=== PATIENT | male | born 1945 | race Caucasian/White ===

== ENCOUNTER → 2016-07-16 | Outpatient (CLI) | payer OTHER ==
[~2016-07-16] MED LIST: AZAT50TA17 PO; CHOL20009 PO; CYAN10005 PO; GADAVIST IV PRN; GLIP10TA9 PO; LINA1TAB PO; LSN/10125 PO; METF-383 PO; MULT-513 PO; PARO1TAB29 PO; SYMIN INH
--- NOTE | 2016-07-16 13:34 | DIAGNOSTIC IMAGING REPORT ---
MRI ENTEROGRAPHY OF THE ABDOMEN AND PELVIS WITH AND WITHOUT CONTRAST CLINICAL HISTORY: Crohn's disease of the ileum with complication. Abnormal CT scan. COMPARISON STUDY: CT of the abdomen and pelvis June 20, 2012. TECHNIQUE: The patient ingested Volumen. Utilizing 1.5 Vanessa magnet and dedicated coil, multiplanar, multi echo imaging of the abdomen was performed pre and postcontrast ministration with dynamic enhancement. Injection of 8.5 cc of Gadavist IV was uneventful. FINDINGS: Note is again made of a mesenteric abnormality that measures 4.7 x 1.3 cm. This has decreased in size since exam of June 20, 2012 and is therefore benign. The spleen, adrenal glands, kidneys and pancreas are unremarkable. Visualized portions of the liver also unremarkable. Small mesenteric lymph nodes are stable. There is no ascites. There is no abscess. There is moderate multifocal wall thickening within the distal ileum. This is improved since exam of June 20, 2012. There is associated hyperemia. There is mild upstream dilatation of the small bowel which measures 3.7 cm in caliber. Linear enhancing foci with adjacent to small bowel suggest an ileoileal fistula. This exam is compromised by motion artifact. IMPRESSION: 1. Moderate multifocal wall thickening with associated hyperemia of the distal ileum consistent with inflammatory bowel disease. The findings suggest active inflammatory bowel disease although appears improved since exam of June 20, 2012. Minimal dilatation of a small bowel loop without convincing evidence for a bowel obstruction. No abscess. Small ileoileal fistula. 2. Interval decrease in size of the mesenteric abnormality since CT of June 20, 2012. Therefore, this is benign. Electronically signed by: Dony Rivero M.D. 07/16/2016 1:32 PM Dictated Date/Time: 07/16/2016 12:39 PM
== END | disposition home or self-care (01) ==
LOC: C.MRI 09:42
PROVIDERS: ATTEND Registered Nurse
DX: K50.019 Crohn's disease of small intestine with unspecified complications (principal); K59.8 Other specified functional intestinal disorders

== ENCOUNTER → 2016-07-19 | Day surgery (SDC) | payer OTHER ==
[~2016-07-19] VITALS: Ht 165.1 cm; Wt 83.6 kg
[~2016-07-19] MED LIST changes: -GADAVIST IV PRN; +LIDOCAINE HCL 2% 2 ML VIAL (20MG/ML) ONE; +MIDAZOLAM HCL 1 MG/ML 2ML VIAL ONE; +ONDANSETRON INJ 2 MG/ML 2 ML VIAL ONE; +PROPOFOL IV EMULSION 10 MG/ML 20 ML VIAL IV ONE; +SODIUM CHLORIDE 0.9% 500ML 500 ML IV ONE
[2016-07-19 12:07] VITALS: Ht 165.1 cm; Wt 83.6 kg
[2016-07-19 12:16] VITALS: TEMP 36.7
--- NOTE | 2016-07-19 12:23 | Endo History and Physical ---
History & Physical Date of Service: July 19, 2016. Chief Complaint: Abn CT scan Hx of Crohns Referring Physician: Dr Chavarria History of Present Illness 70 yo CM who presents for Colonoscopy secondary to Crohn's Disease and abnormal CT scan of the abdomen. Past Surgical History Hx Cardiac Surgery: No Hx Internal Defibrillator: No Hx Pacemaker: No Hx Abdominal Surgery: Yes (APPY, HERNIA REPAIR) Hx of Implantable Prosthesis: No Hx Post-Op Nausea and Vomiting: No Hx Cancer Surgery: No Hx Thoracic Surgery: No Hx Orthopedic: No Hx Urinary Tract Surgery: No Family History Polyp Social History Smoking Status: Former Smoker Hx Substance Use: No Hx Alcohol Use: No Allergies Coded Allergies: BEE STING (Unverified Allergy, Intermediate, HIVES, 07/14/16) NO KNOWN DRUG ALLERGIES (Verified Allergy, Unknown, ., 07/14/16) Current Medications Reported Home Medications Medications Dose Route/Sig Max Daily Dose Days Date Category Vitamin D (Cholecalciferol) 2,000 Unit Tab 1 Tab PO QPM 07/14/16 Reported Symbicort 160-4.5 Mcg/Act (Budesonide/Formoterol Fumarate) 60 Puffs/Inhaler Aero 2 Puffs INH QAM 07/14/16 Reported Tradjenta (Linagliptin) 5 Mg Tab 1 Tab PO QPM 07/14/16 Reported Paxil (Paroxetine HCl) 40 Mg Tab 0.5 Tab PO QAM 07/14/16 Reported Lisinopril/Hctz 12/16.5 Mg (HCTZ/Lisinopril) 1 Ea Tab 1 Tab PO QAM 07/14/16 Reported Vitamin B-12 (Cyanocobalamin) 1,000 Mcg Tab 1,000 Mcg PO QPM 09/26/15 Reported Mvi With Minerals (Multivitamins/Minerals) Tab 1 Tab PO QAM 09/26/15 Reported Glucotrol (Glipizide) 10 Mg Tab 10 Mg PO BID 09/26/15 Reported Glucophage (Metformin Hcl) 850 Mg Tab 850 Mg PO TID 11/10/14 Reported Imuran (Azathioprine) 50 Mg Tab 1.5 Tab PO QPM 12/08/09 Reported Vital Signs Weight (Kilograms): 83.64 Height (Feet): 5 Height (Inches): 5 Date Time Temp Pulse Resp B/P Pulse Ox O2 Delivery O2 Flow Rate FiO2 5/15/17 12:16 36.7 87 16 154/81 98 Room Air Physical Exam General Appearance: WD/WN, no apparent distress Respiratory/Chest: Auscultation: breath sounds normal Cardiovascular: Heart Auscultation: RRR Abdomen: Bowel Sounds: normal Inspection & Palpation: soft, non-distended, no tenderness, guarding & rebound Assessment and Plan Assessment: 70 yo CM who presents for Colonoscopy secondary to Crohn's Disease and abnormal CT scan of the abdomen. Plan: Proceed with colonoscopy.
--- NOTE | 2016-07-19 13:33 | GI REPORT ---
Procedure Date: 07/19/2016 12:44 PM Procedure: Colonoscopy Indications: Disease activity assessment of Crohn's disease of the small bowel, Abnormal MRI of the GI tract Medicines: Monitored Anesthesia Care Complications: Small amount of emesis, tachycardia, but normal O2 saturations. Estimated Blood Loss: Estimated blood loss: none. Procedure: Pre-Anesthesia Assessment: - Prior to the procedure, a History and Physical was performed, and patient medications and allergies were reviewed. The patient's tolerance of previous anesthesia was also reviewed. The risks and benefits of the procedure and the sedation options and risks were discussed with the patient. All questions were answered, and informed consent was obtained. Prior Anticoagulants: The patient has taken no previous anticoagulant or antiplatelet agents. ASA Grade Assessment: III - A patient with severe systemic disease. After reviewing the risks and benefits, the patient was deemed in satisfactory condition to undergo the procedure. After I obtained informed consent, the scope was passed under direct vision. Throughout the procedure, the patient's blood pressure, pulse, and oxygen saturations were monitored continuously. The On-site loaner was introduced through the anus with the intention of advancing to the ileum. The scope was advanced to the ascending colon before the procedure was aborted. Medications were given. The colonoscopy was performed without difficulty. The patient tolerated the procedure poorly due to a small amount of emesis, tachycardia, but normal O2 saturation. The quality of the bowel preparation was good. No anatomical landmarks were photographed. Findings: The colon (entire examined portion) appeared normal. Impression: - The entire examined colon is normal. - No specimens collected. Recommendation: - Resume previous diet. - Continue present medications. - Refer to a colo-rectal surgeon at appointment to be scheduled. Berto Stover DO 07/19/2016 1:33:26 PM This report has been signed electronically. Note Initiated On: 07/19/2016 12:44 PM I attest to the content of the Intraoperative Record and orders documented therein, exceptions below
--- NOTE | 2016-07-19 13:55 | Anesthesiology Progress Note ---
Anesthesia Post Op Note Date & Time July 19, 2016 at 13:52 Vital Signs Pain Intensity: 0 Vital Signs Past 12 Hours Date Time Temp Pulse Resp B/P Pulse Ox O2 Delivery O2 Flow Rate FiO2 07/19/16 13:40 92 18 152/99 95 Room Air 07/19/16 13:25 93 18 132/68 95 Room Air 07/19/16 12:16 36.7 87 16 154/81 98 Room Air Notes Mental Status: alert / awake / arousable, participated in evaluation Pt Amnestic to Procedure: Yes Nausea / Vomiting: adequately controlled Pain: adequately controlled Airway Patency, RR, SpO2: stable & adequate BP & HR: stable & adequate Hydration State: stable & adequate Anesthetic Complications: no major complications apparent Pt started retching during the procedure and started to vomit. He was quickly suctioned. His sats are at baseline, his lungs are clear, and he feels fine. I have no reason to suspect aspiration.
[2016-07-19 13:56] VITALS: BP 140/88; PULSE 89; O2SAT 95
--- NOTE | 2016-07-19 14:16 | Discharge Instructions ---
Endoscopy Patient Instructions Date / Procedure(s) Performed July 19, 2016. Colonoscopy Allergy Information Coded Allergies: BEE STING (Unverified Allergy, Intermediate, HIVES, 07/14/16) NO KNOWN DRUG ALLERGIES (Verified Allergy, Unknown, ., 07/14/16) Discharge Date / Findings July 19, 2016. Incomplete colonoscopy Medication Instructions OK to resume all medications today as prescribed. Reported Home Medications Medications Dose Route/Sig Max Daily Dose Days Date Category Vitamin D (Cholecalciferol) 2,000 Unit Tab 1 Tab PO QPM 07/14/16 Reported Symbicort 160-4.5 Mcg/Act (Budesonide/Formoterol Fumarate) 60 Puffs/Inhaler Aero 2 Puffs INH QAM 07/14/16 Reported Tradjenta (Linagliptin) 5 Mg Tab 1 Tab PO QPM 07/14/16 Reported Paxil (Paroxetine HCl) 40 Mg Tab 0.5 Tab PO QAM 07/14/16 Reported Lisinopril/Hctz 10/12.5 Mg (HCTZ/Lisinopril) 1 Ea Tab 1 Tab PO QAM 07/14/16 Reported Vitamin B-12 (Cyanocobalamin) 1,000 Mcg Tab 1,000 Mcg PO QPM 09/26/15 Reported Mvi With Minerals (Multivitamins/Minerals) Tab 1 Tab PO QAM 09/26/15 Reported Glucotrol (Glipizide) 10 Mg Tab 10 Mg PO BID 09/26/15 Reported Glucophage (Metformin Hcl) 850 Mg Tab 850 Mg PO TID 11/10/14 Reported Imuran (Azathioprine) 50 Mg Tab 1.5 Tab PO QPM 12/08/09 Reported Provider Instructions Activity Restrictions - No exercising or heavy lifting for 24 hours. - Do not drink alcohol the day of the procedure. - Do not drive a car or operate machinery until the day after the procedure. - Do not make any important decisions or sign important papers in 24 hours after the procedure. Following Day: - Return to full activity which may include returning to work/school. Diet Start your diet with liquids and light foods (jello, soup, juice, toast). Then eat your usual diet if not nauseated. Treatment For Common After Affects For mild abdominal pain, bloating, or excessive gas: - Rest - Eat lightly - Lie on right side Follow-Up Information Follow-up with Dr Chavarria as scheduled Anesthesia Information What You Should Know You have had a procedure that required some medicine to reduce anxiety and discomfort. This treatment is called moderate sedation. After receiving the treatment, you may be sleepy, but you will be able to breathe on your own. The effects of the treatment may last for several hours. Follow these instructions along with Activity/Diet recommendations noted above: * Do NOT do anything where dizziness or clumsiness would be dangerous. * Rest quietly at home today, then you can be up and about tomorrow. * Have a responsible person stay with you the rest of today. * You may have had an I.V. today. If so, you may take the dressing off later today. Recommendations Call your doctor if: * Trouble breathing * Continuous vomiting for more than 24 hours * Temperature above 101 degrees * Severe abdominal pain or bloating * Pain not relieved by pain medicine ordered * There is increased drainage or redness from any incision * A large amount of rectal bleeding greater than 2-3 tablespoons. (If you had a polyp/s removed or have hemorrhoids, a small amount of blood - from the rectum is to be expected.) * You have any unanswered questions or concerns. IN THE EVENT OF A SERIOUS EMERGENCY, GO TO THE NEAREST EMERGENCY ROOM Your discharge instructions were prepared by provider Berto Stover. Patient Instructions Signature Page Baldo Malik Patient (or Guardian) Signature/Date: I have read and understand the instructions given to me by my caregivers. Caregiver/RN/Doctor Signature/Date: The above-named patient and/or guardian has received patient instructions on this date. + Original Patient Signature Page (only) stays with chart. Please make copy for patient.
== END | disposition home or self-care (01) ==
LOC: C.GI 11:54
PROVIDERS: ATTEND Internal Medicine
DX: K50.019 Crohn's disease of small intestine with unspecified complications (principal); E11.9 Type 2 diabetes mellitus without complications; R93.7 Abnormal findings on diagnostic imaging of other parts of musculoskeletal system; Z98.890 Other specified postprocedural states; Z87.891 Personal history of nicotine dependence; Z90.89 Acquired absence of other organs; Z68.30 Body mass index [BMI] 30.0-30.9, adult; Z83.71 Family history of colonic polyps

== ENCOUNTER 2017-04-11 08:47 | Inpatient (IN) | payer OTHER ==
[2017-04-11] VITALS (9 sets, daily range): BP systolic 157–171; BP diastolic 79–93; PULSE 102–115; TEMP 37–37.6; O2SAT 92–95; BMI 30.6
[~2017-04-11] VITALS: Ht 165.1 cm; Wt 80.0 kg
[~2017-04-11 08:47] MED LIST changes: -LIDOCAINE HCL 2% 2 ML VIAL (20MG/ML) ONE; -MIDAZOLAM HCL 1 MG/ML 2ML VIAL ONE; -ONDANSETRON INJ 2 MG/ML 2 ML VIAL ONE; -PROPOFOL IV EMULSION 10 MG/ML 20 ML VIAL IV ONE; -SODIUM CHLORIDE 0.9% 500ML 500 ML IV ONE
[2017-04-11] MEDS ORDERED: GUAISYP4 PO (09:49)
[2017-04-11] MEDS ORDERED: ACET-1311 PO (09:49)
--- NOTE | 2017-04-11 09:58 | DIAGNOSTIC IMAGING REPORT ---
CHEST ONE VIEW PORTABLE HISTORY: 71 years-old Male shortness of breath acute shortness of breath COMPARISON: Acute abdominal series radiographs 11/10/2014 TECHNIQUE: Portable AP view of the chest FINDINGS: Cardiac silhouette is within normal limits. Lungs are hypoinflated with mild right hemidiaphragmatic elevation and bronchovascular crowding. There are patchy left greater than right bibasilar reticulonodular and alveolar opacities. No pneumothorax or large pleural effusion. Bones of the chest appear grossly intact. IMPRESSION: 1. Patchy left greater than right bibasilar reticulonodular and alveolar opacities are suspicious for pneumonia or aspiration pneumonitis. 2. Mild hypoinflation. The above report was generated using voice recognition software. It may contain grammatical, syntax or spelling errors. Electronically signed by: Liang Sanchez M.D. 04/11/2017 9:57 AM Dictated Date/Time: 04/11/2017 9:50 AM
[2017-04-11 10:19] LABS: BASO % 0.2 %; BASO ABS # 0.02 K/uL (0-0.2); EOS % 0.1 %; EOS ABS # 0.01 K/uL (0-0.5); HEMATOCRIT 36.7 % (42-52); HEMOGLOBIN 12.8 g/dL (14.0-18.0); IG# 0.03 K/uL (0.00-0.02); LYMPH % 11.5 %; LYMPH ABS # 0.95 K/uL (1.2-3.4); MEAN CELL VOLUME 83.8 fL (80-100); MEAN CORPUSCULAR HEMOGLOBIN 29.2 pg (25-34); MEAN CORPUSCULAR HGB CONC 34.9 g/dl (32-36); MEAN PLATELET VOLUME 9.6 fL (7.4-10.4); MONO % 10.3 %; MONO ABS # 0.85 K/uL (0.11-0.59); NEUT % 77.5 %; NEUT ABS # 6.42 K/uL (1.4-6.5); PLATELET COUNT 311 K/uL (130-400); RED CELL DISTRIBUTION WIDTH CV 13.4 % (11.5-14.5); RED CELL DISTRIBUTION WIDTH SD 40.6 fL (36.4-46.3); WHITE BLOOD COUNT 8.28 K/uL (4.8-10.8)
[2017-04-11 10:49] LABS: ALBUMIN 2.7 gm/dl (3.4-5.0); CALCIUM 9.7 mg/dl (8.5-10.1); CREATININE 1.21 mg/dl (0.60-1.40); POTASSIUM 2.9 mmol/L (3.5-5.1)
[2017-04-11 11:06] LABS: INFLUENZA A PCR Neg for Influ A (NEG); INFLUENZA B PCR Neg for Influ B (NEG)
[2017-04-11] MEDS ORDERED: POTASSIUM CHLORIDE 10 MEQ / 100ML WTR IV STA (11:17)
[2017-04-11] MEDS ORDERED: PIPERACILLIN/TAZOBACTAM 4.5 GM/100ML D5W IV STA (11:17)
--- NOTE | 2017-04-11 11:17 | EMERGENCY ROOM VISIT NOTE ---
History Report prepared by Peter: Kg Amezquita Under the Supervision of: Dr. Chelsey Gan D.O. First contact with patient: 11:02 Chief Complaint: SHORTNESS OF BREATH Stated Complaint: LABORED BREATHING, RESPIRATORY SYMPTOMS Nursing Triage Summary: having shortness of breath for the past month or so. shortness of breath has increased. [facility] was supposed to call in antibiotic on tuesday and never did. History of Present Illness The patient is a 71 year old male who presents to the Emergency Room with complaints of worsening respiratory symptoms that began 1 month ago. He has a past medical history of COPD, diabetes, asthma. Over this time, the patient's chest has felt increasingly congested causing him to become very short of breath. He has been having some left sided rib pain as well associated with his coughing. He denies any fevers, chills, nausea, vomiting, abdominal pain, leg cramping, leg swelling, or any other abnormal symptoms. [facility], but they never called in his prescription. He has an inhaler that he could use, but states that he has not been using it because he thought it would interact with his Robitussin and Tylenol. He does not wear oxygen at home. Source of History: patient Onset: 1 month ago Position: other (Respiratory System) Symptom Intensity: moderate Quality: other (Shortness of breath) Timing: worsening Associated Symptoms: + cough, + chest pain (left ribs), No fevers, No chills , No nausea, No vomiting, No abdominal pain Note: He denies any leg swelling or cramping. Review of Systems See HPI for pertinent positives & negatives. A total of 10 systems reviewed and were otherwise negative. Past Medical & Surgical Medical Problems: (1) Acute respiratory failure with hypoxia (2) Appendectomy (3) Cholecystectomy (4) Crohn's disease (5) Diabetes mellitus (6) Hypertension Family History Omitted secondary to the patient's age. Social History Smoking Status: Never Smoker Smokeless Tobacco Use: No Marital Status: Housing Status: lives with family Occupation Status: retired Current/Historical Medications Scheduled Azathioprine (Imuran), 1.5 TAB PO QPM Budesonide/Formoterol Fumarate (Symbicort 160-4.5 Mcg/Act), 2 PUFFS INH QAM Cholecalciferol (Vitamin D), 1 TAB PO QPM Cyanocobalamin (Vitamin B-12), 1,000 MCG PO QPM Glipizide (Glucotrol), 10 MG PO BID Hctz/Lisinopril (Lisinopril/Hctz 10/12.5 Mg), 1 TAB PO QAM Linagliptin (Tradjenta), 1 TAB PO QPM Metformin Hcl (Glucophage), 850 MG PO TID Multivitamins/Minerals (Mvi With Minerals), 1 TAB PO QAM Paroxetine (Paxil), 0.5 TAB PO QAM Scheduled PRN Guaifenesin/Codeine (Robitussin-Ac Syrup), 10 ML PO Q4H PRN for Cough Miscellaneous Medications Acetaminophen (Tylenol), 325 MG PO Allergies Coded Allergies: BEE STING (Unverified Allergy, Intermediate, HIVES, 04/11/17) NO KNOWN DRUG ALLERGIES (Verified Allergy, Unknown, ., 04/11/17) Physical Exam Vital Signs Date Time Temp Pulse Resp B/P (MAP) Pulse Ox O2 Delivery O2 Flow Rate FiO2 04/11/17 11:47 93 Nasal Cannula 2.0 04/11/17 11:35 112 22 170/93 93 Nasal Cannula 2.0 04/11/17 10:44 99 22 159/91 94 Nasal Cannula 2.0 04/11/17 09:34 117 20 147/94 94 Nasal Cannula 2.0 04/11/17 09:32 89 Room Air 04/11/17 09:32 94 Nasal Cannula 2.0 04/11/17 09:26 120 04/11/17 09:14 91 Room Air 04/11/17 08:51 37.2 123 22 186/94 88 Room Air Physical Exam General: Patient appears to be in slight respiratory distress with a wet cough. HEENT: Head - normocephalic and atraumatic Pupils are equal, round, and reactive to light. Extraocular eye muscles are intact, and sclera are anicteric. Nose - moist nasal mucosa without discharge. Mouth - extremely dry buccal mucosa. Oropharynx is nonerythematous and there is no tonsillar exudate or edema noted. Neck: Supple; no JVD, nuchal rigidity, cervical lymphadenopathy. Heart: Regular rate and rhythm. There is a normal S1 and S2 with no murmurs, clicks, or gallops appreciated. Lungs: Diffuse rhonchi to all rollins. Abdomen: Soft, completely nontender, nondistended, with good bowel sounds. There are no palpable pulsatile masses or hepatosplenomegaly. There is no guarding, rigidity, or rebound noted. Extremities: No evidence of cyanosis, clubbing, or edema. There are easily palpable peripheral pulses. Skin: warm and dry with good turgor and no rashes. Medical Decision & Procedures ER Provider Diagnostic Interpretation: Radiology results as stated below per my review and the radiologist's interpretation: CHEST ONE VIEW PORTABLE HISTORY: 71 years-old Male shortness of breath acute shortness of breath COMPARISON: Acute abdominal series radiographs 11/10/2014 TECHNIQUE: Portable AP view of the chest FINDINGS: Cardiac silhouette is within normal limits. Lungs are hypoinflated with mild right hemidiaphragmatic elevation and bronchovascular crowding. There are patchy left greater than right bibasilar reticulonodular and alveolar opacities. No pneumothorax or large pleural effusion. Bones of the chest appear grossly intact. IMPRESSION: 1. Patchy left greater than right bibasilar reticulonodular and alveolar opacities are suspicious for pneumonia or aspiration pneumonitis. 2. Mild hypoinflation. The above report was generated using voice recognition software. It may contain grammatical, syntax or spelling errors. Electronically signed by: Liang Sanchez M.D. 04/11/2017 9:57 AM Dictated Date/Time: 04/11/2017 9:50 AM Laboratory Results 04/11/17 09:15 Red Blood Count 4.38, Mean Corpuscular Volume 83.8, Mean Corpuscular Hemoglobin 29.2, Mean Corpuscular Hemoglobin Concent 34.9, Mean Platelet Volume 9.6, Neutrophils (%) (Auto) 77.5, Lymphocytes (%) (Auto) 11.5, Monocytes (%) (Auto) 10.3, Eosinophils (%) (Auto) 0.1, Basophils (%) (Auto) 0.2, Neutrophils # (Auto ) 6.42, Lymphocytes # (Auto) 0.95, Monocytes # (Auto) 0.85, Eosinophils # (Auto ) 0.01, Basophils # (Auto) 0.02 04/11/17 09:15 Test 04/11/17 09:15 04/11/17 09:55 04/11/17 11:43 White Blood Count 8.28 K/uL (4.8-10.8) Red Blood Count 4.38 M/uL (4.7-6.1) Hemoglobin 12.8 g/dL (14.0-18.0) Hematocrit 36.7 % (42-52) Mean Corpuscular Volume 83.8 fL (80-100) Mean Corpuscular Hemoglobin 29.2 pg (25-34) Mean Corpuscular Hemoglobin Concent 34.9 g/dl (32-36) Platelet Count 311 K/uL (130-400) Mean Platelet Volume 9.6 fL (7.4-10.4) Neutrophils (%) (Auto) 77.5 % Lymphocytes (%) (Auto) 11.5 % Monocytes (%) (Auto) 10.3 % Eosinophils (%) (Auto) 0.1 % Basophils (%) (Auto) 0.2 % Neutrophils # (Auto) 6.42 K/uL (1.4-6.5) Lymphocytes # (Auto) 0.95 K/uL (1.2-3.4) Monocytes # (Auto) 0.85 K/uL (0.11-0.59) Eosinophils # (Auto) 0.01 K/uL (0-0.5) Basophils # (Auto) 0.02 K/uL (0-0.2) RDW Standard Deviation 40.6 fL (36.4-46.3) RDW Coefficient of Variation 13.4 % (11.5-14.5) Immature Granulocyte % (Auto) 0.4 % Immature Granulocyte # (Auto) 0.03 K/uL (0.00-0.02) Prothrombin Time 9.7 SECONDS (9.0-12.0) Prothromb Time International Ratio 0.9 (0.9-1.1) Activated Partial Thromboplast Time 32.4 SECONDS (21.0-31.0) Partial Thromboplastin Ratio 1.2 Anion Gap 11.0 mmol/L (3-11) Est Creatinine Clear Calc Drug Dose 55.6 ml/min Estimated GFR () 69.4 Estimated GFR (Non- 59.9 BUN/Creatinine Ratio 10.8 (10-20) Calcium Level 9.7 mg/dl (8.5-10.1) Total Bilirubin 0.5 mg/dl (0.2-1) Aspartate Amino Transf (AST/SGOT) 19 U/L (15-37) Alanine Aminotransferase (ALT/SGPT) 25 U/L (12-78) Alkaline Phosphatase 155 U/L (45-117) Troponin I < 0.015 ng/ml (0-0.045) Total Protein 8.0 gm/dl (6.4-8.2) Albumin 2.7 gm/dl (3.4-5.0) Globulin 5.3 gm/dl (2.5-4.0) Albumin/Globulin Ratio 0.5 (0.9-2) Beta-Hydroxybutyric Acid 2.70 mg/dL (0.2-2.81) Hepatitis C Antibody Screen NEG (NEG) Influenza Type A (RT-PCR) Neg for Influ A (NEG) Influenza Type B (RT-PCR) Neg for Influ B (NEG) Bedside Lactic Acid Venous 2.76 mmol/L (0.90-1.70) Laboratory results per my review. Medications Administered Medications (Trade) Dose Ordered Sig/Edward Route Start Time Stop Time Status Last Admin Dose Admin Potassium Chloride (Kcl 10 Meq / Wtr) 10 meq NOW STAT IV 04/11/17 11:17 04/11/17 11:18 DC 04/11/17 11:43 10 MEQ Piperacillin Sod/ Tazobactam Sod (Zosyn Iv) 4.5 gm NOW STAT IV 04/11/17 11:17 04/11/17 11:18 DC 04/11/17 11:34 4.5 GM Procedure Zosyn Iv 4.5 gm IV Potassium Chloride 10 meq IV ECG Indication: SOB/dyspnea Rate (beats per minute): 116 Rhythm: sinus tachycardia Findings: no acute ischemic change, no ectopy Comparison ECG Date: 10 Nov 2014 Change: no significant change ED Course 1102: Past medical records reviewed. The patient was evaluated in room B10. A complete history and physical exam was performed. A septic protocol was performed. An IV lock was initiated and labs are drawn as above. A twelve- lead EKG was obtained as described above. The patient went for chest x-ray which showed evidence of pneumonia. Patient's ECG interpreted by me. 1117: Ordered Zosyn Iv 4.5 gm IV, Potassium Chloride 10 meq IV. 1128: Upon reevaluation, I discussed findings and results with the patient. He verbalized agreement of the treatment plan. I spoke with Dr. Ryan of the [facility]. The patient will be evaluated for further management and care. Medical Decision The patient is a 71 year old male who presents to the ED with respiratory symptoms. Differential diagnosis includes COPD exacerbation, influenza, pneumonia, bronchitis, and CHF. Laboratory Results: No leukocytosis, hemoglobin 12.8, lactic acid 2.7, glucose 417, normal BHA, potassium 2.9, normal renal function, normal LFTs, negative flu. This is a 71-year-old male patient with history of COPD who has had worsening cough and shortness of breath over the past couple of days. He was at the [facility] last week and they were supposed to call in antibiotics for him but that never occurred. His symptoms have worsened. Chest x-ray shows evidence of bilateral basilar pneumonia. The patient does have an elevated lactic acid. He was treated with IV Zosyn. He was found to have significant hyperglycemia and hypokalemia. Without supplemental oxygen, he was hypoxic. I discussed the case with the hospitalist and they will evaluate for further management. Medication Reconcilliation Current Medication List: was personally reviewed by me Blood Pressure Screening Patient's blood pressure: Elevated blood pressure Referred to the hospitalist Consults Time Called: 1120 Consulting Physician: Dr. Ryan - [facility] [place] Returned Call: 1128 Discussed the patient's case. The patient will be evaluated for further management. Impression Primary Impression: Bilateral pneumonia Additional Impressions: Hypoxia Hypokalemia Hyperglycemia Scribe Attestation The scribe's documentation has been prepared under my direction and personally reviewed by me in its entirety. I confirm that the note above accurately reflects all work, treatment, procedures, and medical decision making performed by me. Departure Information Dispostion Being Evaluated By Hospitalist Referrals Ritesh Chavarria M.D. (PCP) Patient Instructions My [facility] Problem Qualifiers Primary Impression: Bilateral pneumonia Pneumonia type: due to unspecified organism Lung location: lower lobe of lung Qualified Codes: J18.9 - Pneumonia, unspecified organism
[2017-04-11] MEDS ORDERED: ALBUT/IPRATROP 3MG/0.5MG NEB 3 ML VIAL INH PRN (12:15)
[2017-04-11] MEDS ORDERED: MAGNESIUM HYDROXIDE SUSP 30 ML UDC PO PRN (12:30)
[2017-04-11] MEDS ORDERED: PIPERACILL/TAZOBAC IV 4.5 GM in DEXTROSE 5% 100ML 100 ML IV SCH (12:30)
[2017-04-11] MEDS ORDERED: ONDANSETRON INJ 2 MG/ML 2 ML VIAL IV PRN (12:30)
[2017-04-11] MEDS ORDERED: ACETAMINOPHEN 325 MG TAB PO PRN (12:30)
[2017-04-11] MEDS ORDERED: ALUMINUM/MAGNESIUM/SIMETH (MAALOX MAX) 30 ML UDC PO PRN (12:30)
[2017-04-11] MEDS ORDERED: PIPERACILL/TAZOBAC CONSULT ACTIVE PRN (12:30)
--- NOTE | 2017-04-11 12:46 | History and Physical ---
History & Physical Date & Time of Service: Apr 11, 2017 at 12:39 Chief Complaint: Labored Breathing, Respiratory Symptoms Primary Care Physician: Ritesh Chavarria M.D. History of Present Illness 71-year-old male typically sees the [facility], presented to them 1 week ago with fevers chills and a productive cough. Reportedly his medicines were to be mailed to am this was to be an antibiotic and he never received that he became progressively more short of breath and weak even to the point review was dyspneic on exertion. He presented to her ER was found to be hypoxemic and a chest x-ray showed bilateral reticulonodular changes consistent with possible bilateral pneumonia. The patient had blood cultures obtained and was started on Zosyn in the ER and recommended for admission. This patient also takes Imuran for Crohn's disease which raises the point of either an atypical infection or possibly even Imuran associated pneumonitis. There is discussion on the x-ray report of possible aspiration although clinically the patient denies any signs or symptoms of aspiration He is uncontrolled diabetes on presentation because he did not take his morning medications His Crohn's disease as mentioned has been stable but he typically has difficulty digesting food with increased abdominal noises and bloating he however has been having good bowel movements without any blood Past Medical/Surgical History Medical Problems: (1) Appendectomy Status: Resolved (2) Cholecystectomy Status: Resolved (3) Crohn's disease Status: Chronic (4) Diabetes mellitus Status: Chronic Family History Family history is positive for irritable bowel disease diabetes and heart disease including a brother with a CABG Social History Smoking Status: Former Smoker (quit in 1997) Smokeless Tobacco Use: No Marital Status: Occupational Status: retired Immunizations History of Influenza Vaccine: Yes Influenza Vaccine Date: Dec 21, 2011 History of Tetanus Vaccine?: Yes Tetanus Immunization Date: Dec 21, 2011 History of Pneumococcal: Yes Pneumococcal Date: Dec 21, 2011 History of Hepatitis B Vaccine: Unknown Multi-Drug Resistant Organisms History of MDRO: No Allergies Coded Allergies: BEE STING (Unverified Allergy, Intermediate, HIVES, 04/11/17) NO KNOWN DRUG ALLERGIES (Verified Allergy, Unknown, ., 04/11/17) Home Medications Scheduled Azathioprine (Imuran), 1.5 TAB PO QPM Budesonide/Formoterol Fumarate (Symbicort 160-4.5 Mcg/Act), 2 PUFFS INH QAM Cholecalciferol (Vitamin D), 1 TAB PO QPM Cyanocobalamin (Vitamin B-12), 1,000 MCG PO QPM Glipizide (Glucotrol), 10 MG PO BID Hctz/Lisinopril (Lisinopril/Hctz 10/12.5 Mg), 1 TAB PO QAM Linagliptin (Tradjenta), 1 TAB PO QPM Metformin Hcl (Glucophage), 850 MG PO TID Multivitamins/Minerals (Mvi With Minerals), 1 TAB PO QAM Paroxetine (Paxil), 0.5 TAB PO QAM Scheduled PRN Guaifenesin/Codeine (Robitussin-Ac Syrup), 10 ML PO Q4H PRN for Cough Miscellaneous Medications Acetaminophen (Tylenol), 325 MG PO Review of Systems ROS: well nourished well developed No double vision blurry vision No problems with speech or swallowing No palpitations, chest pain or pressure Patient has had difficulty breathing felt short of breath at rest but has had no audible wheezes definitely more short of breath than his baseline No abdominal pain but has worst bloating than usual he has had no nausea vomiting or diarrhea No burning urine urine frequency or changes in color No focal joint pain or muscle pain No skin rashes or oral lesions No unusual bruising or bleeding No focused back pain or numbness or loss of strength No changes in memory or confusion Physical Exam Vital Signs Date Time Temp Pulse Resp B/P (MAP) Pulse Ox O2 Delivery O2 Flow Rate FiO2 04/11/17 11:47 93 Nasal Cannula 2.0 04/11/17 11:35 112 22 170/93 93 Nasal Cannula 2.0 04/11/17 10:44 99 22 159/91 94 Nasal Cannula 2.0 04/11/17 09:34 117 20 147/94 94 Nasal Cannula 2.0 04/11/17 09:32 89 Room Air 04/11/17 09:32 94 Nasal Cannula 2.0 04/11/17 09:26 120 04/11/17 09:14 91 Room Air 04/11/17 08:51 37.2 123 22 186/94 88 Room Air General Appearance: WD/WN, + moderate distress Head: normocephalic, atraumatic Eyes: normal inspection, sclerae normal ENT: hearing grossly normal, pharynx normal Neck: supple, no JVD Respiratory/Chest: + respiratory distress, + decreased breath sounds, + accessory muscle use, + rhonchi Cardiovascular: no murmur, + tachycardia (bilateral bases) Abdomen/GI: soft, + abnormal bowel sounds (hyperactive bowel sounds), + distended, + pertinent finding (tympanitic to percussion) Back: no CVA tenderness, no muscle spasm Extremities/Musculoskelatal: no pedal edema, normal range of motion Neurologic/Psych: alert, oriented x 3 Skin: normal color, warm/dry Diagnostics Laboratory Results Results Past 24 Hours Test 04/11/17 09:15 04/11/17 09:55 04/11/17 11:55 Range/Units White Blood Count 8.28 4.8-10.8 K/uL Red Blood Count 4.38 4.7-6.1 M/uL Hemoglobin 12.8 14.0-18.0 g/dL Hematocrit 36.7 42-52 % Mean Corpuscular Volume 83.8 80-100 fL Mean Corpuscular Hemoglobin 29.2 25-34 pg Mean Corpuscular Hemoglobin Concent 34.9 32-36 g/dl Platelet Count 311 130-400 K/uL Mean Platelet Volume 9.6 7.4-10.4 fL Neutrophils (%) (Auto) 77.5 % Lymphocytes (%) (Auto) 11.5 % Monocytes (%) (Auto) 10.3 % Eosinophils (%) (Auto) 0.1 % Basophils (%) (Auto) 0.2 % Neutrophils # (Auto) 6.42 1.4-6.5 K/uL Lymphocytes # (Auto) 0.95 1.2-3.4 K/uL Monocytes # (Auto) 0.85 0.11-0.59 K/uL Eosinophils # (Auto) 0.01 0-0.5 K/uL Basophils # (Auto) 0.02 0-0.2 K/uL RDW Standard Deviation 40.6 36.4-46.3 fL RDW Coefficient of Variation 13.4 11.5-14.5 % Immature Granulocyte % (Auto) 0.4 % Immature Granulocyte # (Auto) 0.03 0.00-0.02 K/uL Sodium Level 133 136-145 mmol/L Potassium Level 2.9 3.5-5.1 mmol/L Chloride Level 95 98-107 mmol/L Carbon Dioxide Level 27 21-32 mmol/L Anion Gap 11.0 3-11 mmol/L Blood Urea Nitrogen 13 7-18 mg/dl Creatinine 1.21 0.60-1.40 mg/dl Est Creatinine Clear Calc Drug Dose 55.6 ml/min Estimated GFR () 69.4 Estimated GFR (Non- 59.9 BUN/Creatinine Ratio 10.8 10-20 Random Glucose 417 70-99 mg/dl Calcium Level 9.7 8.5-10.1 mg/dl Total Bilirubin 0.5 0.2-1 mg/dl Aspartate Amino Transf (AST/SGOT) 19 15-37 U/L Alanine Aminotransferase (ALT/SGPT) 25 12-78 U/L Alkaline Phosphatase 155 45-117 U/L Troponin I < 0.015 0-0.045 ng/ml Total Protein 8.0 6.4-8.2 gm/dl Albumin 2.7 3.4-5.0 gm/dl Globulin 5.3 2.5-4.0 gm/dl Albumin/Globulin Ratio 0.5 0.9-2 Beta-Hydroxybutyric Acid 2.70 0.2-2.81 mg/dL Influenza Type A (RT-PCR) Neg for Influ A NEG Influenza Type B (RT-PCR) Neg for Influ B NEG Microbiology Results 04/11/17 Blood Culture, Received Pending 04/11/17 Blood Culture, Received Pending Diagnostic Radiology Patient has a pending abdominal x-ray It is also noted he is low potassium on intake and a normal white count other (chest x-ray shows left greater than right reticulonodular opacities) other (EKG shows sinus tach) Impression Assessment and Plan 71-year-old male here with acute on chronic respiratory failure with hypoxemia concern for atypical pneumonia For the pneumonia the patient will be given Zosyn as it was begun in the ER plus oral azithromycin to cover atypical infections Acute on chronic respiratory failure with hypoxemia the patient will be on supplemental oxygen will have his inhaled medications changed in nebulized form including formoterol he will have a pulmonary consultation I personally spoke with the on-call paper tube grader, he was given 1 dose of Solu-Medrol in the ER and transition oral prednisone on 04/12 Crohn's disease the patient's Imuran will be held as it is immune suppressing him we will use steroids as above which will hopefully help any inflammatory bowel disease. 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 Boogie is his selector packer Uncontrolled diabetes the patient be given a one-time dose of Lantus 10 in the ER plus sliding scale and continuing his glipizide 10 twice a day but holding his metformin For hypertension the patient is typically on lisinopril hydrochlorothiazide and this will be continued tomorrow with when necessary hydralazine if needed His depression is assessed as clinically stable will continue his Paxil at 20 Lovenox as used for DVT prevention Advanced Directives Existing Living Will: Yes Existing Power of Coating Mixer Supervisor: Yes (AUBREY ) VTE Prophylaxis VTE Risk Assessment Done? Y/N: Yes Risk Level: Moderate Given or contraindicated: Enoxaparin (Lovenox)SQ
[2017-04-11] MEDS ORDERED: HydrALAZINE HCL 20 MG/ML VIAL IV PRN (13:00)
[2017-04-11] MEDS ORDERED: AZITHROMYCIN 250 MG TAB ONE (13:02)
[2017-04-11] MEDS: POTASSIUM CHLORIDE INJ 20 MEQ in SODIUM CHLORIDE 0.9% 1000ML 1,000 ML IV SCH (13:57)
[2017-04-11] MEDS: INSULIN ASPART 100 UNITS/ML 3 ML PEN SC SCH ×3 (13:59→21:10)
[2017-04-11] MEDS ORDERED: INSULIN GLARGINE SOLOSTAR 100 UNITS/ML 3 ML PEN SC ONE (14:00)
[2017-04-11] MEDS ORDERED: AZITHROMYCIN 250 MG TAB PO ONE (14:00)
[2017-04-11] MEDS: PAROXETINE 20 MG TAB PO SCH (14:06)
[2017-04-11] MEDS: LISINOPRIL/HCTZ 10/12.5MG TAB PO SCH (14:06)
[2017-04-11] MEDS ORDERED: METHYLPREDNISOLONE IV 40 MG in SYRINGE 0 ML IV ONE (14:15)
[2017-04-11] MEDS ORDERED: MAGNESIUM SULFATE 1GM / D5W 1 GM in PREMIXED IN D5W 100 ML IV ONE (14:30)
[2017-04-11 14:47] LABS: INR 0.9 (0.9-1.1); PTT PATIENT 32.4 SECONDS (21.0-31.0)
[2017-04-11] MEDS: ALBUT/IPRATROP 3MG/0.5MG NEB 3 ML VIAL INH SCH ×2 (15:16→20:03)
[2017-04-11] MEDS ORDERED: OPTIRAY 320 IV PRN (15:30)
--- NOTE | 2017-04-11 16:01 | DIAGNOSTIC IMAGING REPORT ---
ABDOMEN 2 VIEWS CLINICAL HISTORY: 71 years-old Male presenting with eval for sbo ileus. TECHNIQUE: Upright and supine views of the abdomen were obtained. COMPARISON: 11/10/[address] from 06/20/2012. FINDINGS: Nonobstructive bowel gas pattern. No gross pneumoperitoneum. Calcification projects over the bilateral renal jenna in the region of the renal pelvises, likely calculi. Multiple pelvic phleboliths. Osseous structures normal. Lung bases clear. IMPRESSION: 1. No bowel obstruction or free air. 2. Bilateral renal calculi suspected in the renal pelvises. Electronically signed by: Marvel Ren M.D. 04/11/2017 3:59 PM Dictated Date/Time: 04/11/2017 3:56 PM
--- NOTE | 2017-04-11 16:15 | DIAGNOSTIC IMAGING REPORT ---
CT OF THE CHEST WITH IV CONTRAST CLINICAL HISTORY: Abnormal chest x-ray. Shortness of breath. Basilar pneumonitis. COMPARISON STUDY: Chest x-ray dated 04/11/2017 TECHNIQUE: Following the IV administration of 93 mL of Optiray-320, CT of the thorax was performed from the thoracic inlet to the lung bases. Images are reviewed in the axial, sagittal, and coronal planes. IV contrast was administered without complication. A dose lowering technique was utilized adhering to the principles of ALARA. CT DOSE: 398.73 mGycm FINDINGS: Thyroid: Imaged portions of the thyroid gland are normal in appearance. Thoracic aorta: The thoracic aorta is normal in course and caliber, noting standard 3-vessel arch anatomy. No aneurysm or dissection is seen. Pulmonary vasculature: The pulmonary trunk is normal in caliber. There are no central filling defects identified to suggest pulmonary embolus. Note that this examination was not protocoled for the evaluation of pulmonary emboli. HEART: The heart is normal in size. There are coronary artery calcifications. Lungs and pleural spaces: No pleural effusions are visualized. There are multifocal ill-defined pulmonary nodules, most pronounced in the lower lobes. These measure up to 16 mm in diameter. The overall distribution strongly favors an infectious/inflammatory process. Short-term follow-up subsequent to appropriate antibiotic therapy is recommended. Mediastinum: Mediastinal lymph nodes are the upper limits of normal in size Roz: There are calcified hilar lymph nodes likely postinflammatory Axilla: There is no evidence of pathologic axillary lymphadenopathy Upper abdomen: There is hepatic steatosis. There is cholelithiasis. Skeletal structures: There are no lytic or blastic osseous lesions. IMPRESSION: 1. Multifocal ill-defined pulmonary nodules, most pronounced in the lower lobes. The overall appearance and distribution favors an infectious/inflammatory process. Short-term follow-up subsequent to therapy is recommended 2. Hepatic steatosis 3. Cholelithiasis Electronically signed by: Braulio Cerda M.D. 04/11/2017 4:14 PM Dictated Date/Time: 04/11/2017 4:08 PM
[2017-04-11] MEDS: PIPERACILL/TAZOBAC IV 3.375 GM in DEXTROSE 5% 100ML IV SCH ×2 (16:57→23:20)
[2017-04-11] MEDS: POTASSIUM CHLORIDE 20 MEQ TABCR PO SCH (17:06)
--- NOTE | 2017-04-11 17:16 | Pulmonary Consultation ---
History General Date of Service: Apr 11, 2017. Stated Complaint: Acute Respiratory Failure With Hypoxia HPI The patient is a 71 year old male with h/o COPD, well controlled Chron's disease on Imuran, came to ED c/o 1 month history of recurrent episodes of shortness of breath, congestion. He was treating himself with Robitussin with mild improvement. [facility] to ask [facility] (states that usually Zithromax or doxycycline help in this situations). He did not get the medication in the mail so he came here. States that he feels better already after receiving steroids. His symptoms also included cough, non-productive cough, occasional chills, rib cage pain and interscapular. He has been on Imuran for many years and the Chron's symptoms have been mostly controlled Review of Systems per HPI, all other systems reviewed and negative Past Medical History Past Medical History: Crohn's disease Past Medical History: COPD, diabetes, other Social History Hx Tobacco Use In Past Year?: No Smoking Status: Former Smoker (quit in 1997) Marital status: Occupational Status: retired Immunizations History of Influenza Vaccine: Yes Influenza Vaccine Date: Dec 21, 2011 History of Tetanus Vaccine?: Yes Tetanus Immunization Date: Dec 21, 2011 History of Pneumococcal: Yes Pneumococcal Date: Dec 21, 2011 History of Hepatitis B Vaccine: Unknown History of MDRO History of MDRO: No Allergies Coded Allergies: BEE STING (Unverified Allergy, Intermediate, HIVES, 04/11/17) NO KNOWN DRUG ALLERGIES (Verified Allergy, Unknown, ., 04/11/17) Current Medications Reported Home Medications Medications Dose Route/Sig Max Daily Dose Days Date Category Tylenol (Acetaminophen) 325 Mg Tab 325 Mg PO 04/11/17 Reported Robitussin-Ac Syrup (Codeine Phosphate/Guaifenesin) Syrp 10 Ml PO Q4H PRN 4 04/11/17 Reported Vitamin D (Cholecalciferol) 2,000 Unit Tab 1 Tab PO QPM 07/14/16 Reported Symbicort 160-4.5 Mcg/Act (Budesonide/Formoterol Fumarate) 60 Puffs/Inhaler Aero 2 Puffs INH QAM 07/14/16 Reported Tradjenta (Linagliptin) 5 Mg Tab 1 Tab PO QPM 07/14/16 Reported Paxil (Paroxetine HCl) 40 Mg Tab 0.5 Tab PO QAM 07/14/16 Reported Lisinopril/Hctz 12/16.5 Mg (HCTZ/Lisinopril) 1 Ea Tab 1 Tab PO QAM 07/14/16 Reported Vitamin B-12 (Cyanocobalamin) 1,000 Mcg Tab 1,000 Mcg PO QPM 09/26/15 Reported Mvi With Minerals (Multivitamins/Minerals) Tab 1 Tab PO QAM 09/26/15 Reported Glucotrol (Glipizide) 10 Mg Tab 10 Mg PO BID 09/26/15 Reported Glucophage (Metformin Hcl) 850 Mg Tab 850 Mg PO TID 11/10/14 Reported Imuran (Azathioprine) 50 Mg Tab 1.5 Tab PO QPM 12/08/09 Reported Physical Physical Exam Vital Signs: Date Time Temp Pulse Resp B/P (MAP) Pulse Ox O2 Delivery O2 Flow Rate FiO2 04/11/17 15:50 37.0 114 18 160/93 (115) 94 Nasal Cannula 3.0 04/11/17 15:19 109 18 94 Nasal Cannula 3.0 04/11/17 14:02 37.6 115 22 171/79 (109) 92 04/11/17 14:00 94 Nasal Cannula 2.0 04/11/17 13:05 111 22 160/90 94 Nasal Cannula 2.0 04/11/17 12:40 105 04/11/17 11:47 93 Nasal Cannula 2.0 04/11/17 11:35 112 22 170/93 93 Nasal Cannula 2.0 04/11/17 10:44 99 22 159/91 94 Nasal Cannula 2.0 04/11/17 09:34 117 20 147/94 94 Nasal Cannula 2.0 04/11/17 09:32 89 Room Air 04/11/17 09:32 94 Nasal Cannula 2.0 04/11/17 09:26 120 04/11/17 09:14 91 Room Air 04/11/17 08:51 37.2 123 22 186/94 88 Room Air General Appearance: WELL-APPEARING, NO APPARENT DISTRESS Eyes: PERRLA Neck: NORMAL RANGE OF MOTION, NO TENDERNESS, TRACHEA MIDLINE Respiratory: rhonchi, wheezing, other (Increased expiratory phase.) Cardiovasular: REGULAR RATE/RHYTHM, NORMAL S1S2 Abdomen: NON TENDER, NO REBOUND Upper Extremities: NO EDEMA Lower Extremities: NO EDEMA Neuro: ALERT, ORIENTED x 3, NORMAL MOTOR EXAM Diagnostics Labs Results Past 24 Hours Test 04/11/17 09:15 04/11/17 09:55 04/11/17 11:43 04/11/17 13:47 Range/Units White Blood Count 8.28 4.8-10.8 K/uL Red Blood Count 4.38 4.7-6.1 M/uL Hemoglobin 12.8 14.0-18.0 g/dL Hematocrit 36.7 42-52 % Mean Corpuscular Volume 83.8 80-100 fL Mean Corpuscular Hemoglobin 29.2 25-34 pg Mean Corpuscular Hemoglobin Concent 34.9 32-36 g/dl Platelet Count 311 130-400 K/uL Mean Platelet Volume 9.6 7.4-10.4 fL Neutrophils (%) (Auto) 77.5 % Lymphocytes (%) (Auto) 11.5 % Monocytes (%) (Auto) 10.3 % Eosinophils (%) (Auto) 0.1 % Basophils (%) (Auto) 0.2 % Neutrophils # (Auto) 6.42 1.4-6.5 K/uL Lymphocytes # (Auto) 0.95 1.2-3.4 K/uL Monocytes # (Auto) 0.85 0.11-0.59 K/uL Eosinophils # (Auto) 0.01 0-0.5 K/uL Basophils # (Auto) 0.02 0-0.2 K/uL RDW Standard Deviation 40.6 36.4-46.3 fL RDW Coefficient of Variation 13.4 11.5-14.5 % Immature Granulocyte % (Auto) 0.4 % Immature Granulocyte # (Auto) 0.03 0.00-0.02 K/uL Prothrombin Time 9.7 9.0-12.0 SECONDS Prothromb Time International Ratio 0.9 0.9-1.1 Activated Partial Thromboplast Time 32.4 21.0-31.0 SECONDS Partial Thromboplastin Ratio 1.2 Sodium Level 133 136-145 mmol/L Potassium Level 2.9 3.5-5.1 mmol/L Chloride Level 95 98-107 mmol/L Carbon Dioxide Level 27 21-32 mmol/L Anion Gap 11.0 3-11 mmol/L Blood Urea Nitrogen 13 7-18 mg/dl Creatinine 1.21 0.60-1.40 mg/dl Est Creatinine Clear Calc Drug Dose 55.6 ml/min Estimated GFR () 69.4 Estimated GFR (Non- 59.9 BUN/Creatinine Ratio 10.8 10-20 Random Glucose 417 70-99 mg/dl Calcium Level 9.7 8.5-10.1 mg/dl Total Bilirubin 0.5 0.2-1 mg/dl Aspartate Amino Transf (AST/SGOT) 19 15-37 U/L Alanine Aminotransferase (ALT/SGPT) 25 12-78 U/L Alkaline Phosphatase 155 45-117 U/L Troponin I < 0.015 0-0.045 ng/ml Total Protein 8.0 6.4-8.2 gm/dl Albumin 2.7 3.4-5.0 gm/dl Globulin 5.3 2.5-4.0 gm/dl Albumin/Globulin Ratio 0.5 0.9-2 Beta-Hydroxybutyric Acid 2.70 0.2-2.81 mg/dL Hepatitis C Antibody Screen NEG NEG Influenza Type A (RT-PCR) Neg for Influ A NEG Influenza Type B (RT-PCR) Neg for Influ B NEG Bedside Lactic Acid Venous 2.76 0.90-1.70 mmol/L Bedside Glucose 344 70-99 mg/dl Microbiology Results 04/11/17 Blood Culture, Received Pending 04/11/17 Blood Culture, Received Pending Diagnostic Radiology CT chest: IMPRESSION: 1. Multifocal ill-defined pulmonary nodules, most pronounced in the lower lobes. The overall appearance and distribution favors an infectious/inflammatory process. Short-term follow-up subsequent to therapy is recommended 2. Hepatic steatosis 3. Cholelithiasis Impression Assessment and Plan COPD exacerbation Bilateral pneumonitis Crohn's disease I doubt that the pulmonary findings represent Imuran lung toxicity, most likely they are infectious in nature Plan: Treat as COPD exacerbation Needs atypical coverage, on azithromycin Continue on Zosyn Start IV steroids Bronchodilators May hold Imuran for the time being. Robitussin with codeine If the patient improves rapidly, may resume the Imuran. CT chest reviewed. Will consider repeating it in the future if he does not fully recover, may need a bronchoscopy, to rule out atypical mycobacterial infection/ Note Total Time (mins): 30
[2017-04-11] MEDS: GUAIFENESIN/CODEINE 200MG/20MG 10ML UDC PO PRN (19:37)
[2017-04-11] MEDS: FORMOTEROL FUMA NEBULIZER SOLN 20 MCG/2 ML VIAL INH SCH (20:03)
[2017-04-11] MEDS: HEPARIN SOD 5000 UNIT/0.5 ML CARP SQ SCH (21:00)
[2017-04-12] VITALS (12 sets, daily range): BP systolic 153–176; BP diastolic 54–99; PULSE 89–107; TEMP 36.3–36.8; O2SAT 93–96; Ht 165.1 cm; Wt 80.0 kg
[2017-04-12] MEDS: POTASSIUM CHLORIDE INJ 20 MEQ in SODIUM CHLORIDE 0.9% 1000ML 1,000 ML IV SCH (01:39)
[2017-04-12 06:15] LABS: HEMATOCRIT 35.4 % (42-52); HEMOGLOBIN 12.3 g/dL (14.0-18.0); MEAN CELL VOLUME 84.7 fL (80-100); MEAN CORPUSCULAR HEMOGLOBIN 29.4 pg (25-34); MEAN CORPUSCULAR HGB CONC 34.7 g/dl (32-36); MEAN PLATELET VOLUME 9.4 fL (7.4-10.4); PLATELET COUNT 307 K/uL (130-400); RED CELL DISTRIBUTION WIDTH CV 13.5 % (11.5-14.5); WHITE BLOOD COUNT 5.86 K/uL (4.8-10.8)
[2017-04-12 07:00] LABS: CALCIUM 8.7 mg/dl (8.5-10.1); CREATININE 0.97 mg/dl (0.60-1.40); POTASSIUM 3.6 mmol/L (3.5-5.1)
--- NOTE | 2017-04-12 07:01 | Pulmonology Progress Note ---
Pulmonary Progress Note Date of Service Apr 12, 2017. Attending Dr. Ozuna Subjective Patient seen and examined at bedside. Continues with 3 L/min of supplemental O2 via nasal cannula. Currently with SaO2 96%. No SOB overnight. Continues with non -productive cough and wheezes. No fever or chills. Persistent loose stools but not watery diarrhea. No other acute complaints. Objective Vital Signs - as noted below Laboratory Data - as noted below Physical Exam: General - NAD Eyes - No icterus, gaze conjugate ENT - Mucosa moist, no lesions. Positive for oral candidiasis on the tongue and posterior oropharynx Neck - Supple, No JVD Lungs - No rales or rhonchi. Diffuse bronchospasm in all lung rollins. Deep inspiration induces cough Heart - Regular, rate controlled Abdomen - Soft, NT, ND, BS present Extremities - No edema, pedal pulses intact Neuro - A&OX3 Assessment & Plan COPD EXACERBATION * Patient placed on azithromycin for atypical coverage * Would also continue Zosyn at this time * Patient still significant bronchospastic - continue IV steroids and bronchodilators PNEUMONITIS * CT chest shows tree-in-bud opacities at the bases * Patient chronically immunosuppressed with Imuran for Crohn's disease * Imuran has been held at this time * Continue Zosyn and azithromycin for atypical coverage * Patient oxygenating better but still requiring supplemental O2 * Patient may require bronchoscopy to rule out mycobacterial infection if no improvement * Afebrile * Continue to monitor closely CROHN'S DISEASE * Imuran held * Patient reports chronically loose stool * No abdominal pain or watery diarrhea * Monitor clinically DVT PROPHYLAXIS * Heparin 5000 units sq q12h * Ambulate as tolerated Thank you for including us in the care of this patient. We will continue to follow along with you. Data Medications: Current Inpatient Medications Medications (Trade) Dose Ordered Sig/Edward Route Start Time Stop Time Status Last Admin Dose Admin Glipizide (Glucotrol Tab) 10 mg BIDM PO 04/11/17 17:00 05/11/17 16:59 04/11/17 17:06 10 MG Codeine Phosphate/ Guaifenesin (Robitussin-AC Sugar Free Syrup) 10 ml Q4H PRN PO 04/11/17 12:15 05/11/17 12:14 04/11/17 19:37 10 ML HCTZ/Lisinopril (Prinzide 10-12.5MG Tab) 1 tab QAM PO 04/12/17 09:00 05/12/17 08:59 04/11/17 14:06 1 TAB Paroxetine HCl (pAXil TAB) 20 mg QAM PO 04/12/17 09:00 05/12/17 08:59 04/11/17 14:06 20 MG Insulin Aspart (novoLOG ASPART) SLIDING SCALE PARAMETER ACHS SC 04/11/17 16:30 05/11/17 16:29 04/11/17 21:10 10 UNITS Formoterol Fumarate (Perforomist 20MCG/2ML Neb Soln) 20 mcg BIDR INH 04/11/17 20:00 05/11/17 19:59 04/11/17 20:03 20 MCG Albuterol/ Ipratropium (Duoneb) 3 ml QIDR INH 04/11/17 16:00 05/11/17 15:59 04/11/17 20:03 3 ML Albuterol/ Ipratropium (Duoneb) 3 ml Q2R PRN INH 04/11/17 12:15 05/11/17 12:14 Potassium Chloride (Klor-Con Tab) 20 meq BIDM PO 04/11/17 17:00 04/12/17 17:01 04/11/17 17:06 20 MEQ Potassium Chloride 20 meq/ Sodium Chloride 1,010 ml @ 100 mls/hr Q10H6M IV 04/11/17 14:00 04/12/17 09:59 04/12/17 01:39 100 MLS/HR Miscellaneous Information (Consult) 1 ea UD PRN N/A 04/11/17 12:30 05/11/17 12:29 Azithromycin (Zithromax Tab) 250 mg QAM PO 04/12/17 09:00 04/17/17 09:01 Heparin Sodium (Porcine) (Heparin Sq 5000 Unit/0.5ml) 5,000 unit Q12 SQ 04/11/17 21:00 05/11/17 20:59 Acetaminophen (Tylenol Tab) 650 mg Q4H PRN PO 04/11/17 12:30 05/11/17 12:29 Al Hydrox/Mg Hydrox/Simethicone (Maalox Max Susp) 15 ml Q4H PRN PO 04/11/17 12:30 05/11/17 12:29 Magnesium Hydroxide (Milk Of Magnesia Susp) 30 ml Q12H PRN PO 04/11/17 12:30 05/11/17 12:29 Ondansetron HCl (Zofran Inj) 4 mg Q6H PRN IV 04/11/17 12:30 05/11/17 12:29 Prednisone (PredniSONE TAB) 40 mg DAILY PO 04/12/17 09:00 05/12/17 08:59 Hydralazine HCl (HydrALAZINE INJ) 10 mg Q4H PRN IV 04/11/17 13:00 05/11/17 12:59 Piperacillin Sod/ Tazobactam Sod 3.375 gm/Dextrose 115 ml @ 28.75 mls/ hr Q8@0000,0800,1600 IV 04/11/17 16:00 04/18/17 15:59 04/11/17 23:20 28.75 MLS/HR Ioversol (Optiray 320) 100 ml UD PRN IV 04/11/17 15:30 04/15/17 15:29 Vital Signs: Date Time Temp Pulse Resp B/P (MAP) Pulse Ox O2 Delivery O2 Flow Rate FiO2 04/12/17 04:22 89 154/87 (109) 04/12/17 04:00 Nasal Cannula 3.0 04/12/17 04:00 36.3 92 20 168/95 (119) 95 Nasal Cannula 3.0 04/12/17 00:01 36.7 95 16 153/92 (112) 94 Nasal Cannula 3.0 04/12/17 00:00 Nasal Cannula 3.0 04/11/17 20:03 102 18 95 Nasal Cannula 3.0 04/11/17 20:00 94 Nasal Cannula 3.0 04/11/17 19:47 37.0 103 18 157/89 (111) 95 Nasal Cannula 3.0 04/11/17 16:00 94 Nasal Cannula 3.0 04/11/17 15:50 37.0 114 18 160/93 (115) 94 Nasal Cannula 3.0 04/11/17 15:19 109 18 94 Nasal Cannula 3.0 04/11/17 14:02 37.6 115 22 171/79 (109) 92 04/11/17 14:00 94 Nasal Cannula 2.0 04/11/17 13:05 111 22 160/90 94 Nasal Cannula 2.0 04/11/17 12:40 105 04/11/17 11:47 93 Nasal Cannula 2.0 04/11/17 11:35 112 22 170/93 93 Nasal Cannula 2.0 04/11/17 10:44 99 22 159/91 94 Nasal Cannula 2.0 04/11/17 09:34 117 20 147/94 94 Nasal Cannula 2.0 04/11/17 09:32 89 Room Air 04/11/17 09:32 94 Nasal Cannula 2.0 04/11/17 09:26 120 04/11/17 09:14 91 Room Air 04/11/17 08:51 37.2 123 22 186/94 88 Room Air Laboratory Results: Last 24 Hours Test 04/11/17 09:15 04/11/17 09:55 04/11/17 11:43 04/11/17 13:47 White Blood Count 8.28 K/uL Red Blood Count 4.38 M/uL Hemoglobin 12.8 g/dL Hematocrit 36.7 % Mean Corpuscular Volume 83.8 fL Mean Corpuscular Hemoglobin 29.2 pg Mean Corpuscular Hemoglobin Concent 34.9 g/dl Platelet Count 311 K/uL Mean Platelet Volume 9.6 fL Neutrophils (%) (Auto) 77.5 % Lymphocytes (%) (Auto) 11.5 % Monocytes (%) (Auto) 10.3 % Eosinophils (%) (Auto) 0.1 % Basophils (%) (Auto) 0.2 % Neutrophils # (Auto) 6.42 K/uL Lymphocytes # (Auto) 0.95 K/uL Monocytes # (Auto) 0.85 K/uL Eosinophils # (Auto) 0.01 K/uL Basophils # (Auto) 0.02 K/uL RDW Standard Deviation 40.6 fL RDW Coefficient of Variation 13.4 % Immature Granulocyte % (Auto) 0.4 % Immature Granulocyte # (Auto) 0.03 K/uL Prothrombin Time 9.7 SECONDS Prothromb Time International Ratio 0.9 Activated Partial Thromboplast Time 32.4 SECONDS Partial Thromboplastin Ratio 1.2 Sodium Level 133 mmol/L Potassium Level 2.9 mmol/L Chloride Level 95 mmol/L Carbon Dioxide Level 27 mmol/L Anion Gap 11.0 mmol/L Blood Urea Nitrogen 13 mg/dl Creatinine 1.21 mg/dl Est Creatinine Clear Calc Drug Dose 55.6 ml/min Estimated GFR () 69.4 Estimated GFR (Non- 59.9 BUN/Creatinine Ratio 10.8 Random Glucose 417 mg/dl Calcium Level 9.7 mg/dl Total Bilirubin 0.5 mg/dl Aspartate Amino Transf (AST/SGOT) 19 U/L Alanine Aminotransferase (ALT/SGPT) 25 U/L Alkaline Phosphatase 155 U/L Troponin I < 0.015 ng/ml Total Protein 8.0 gm/dl Albumin 2.7 gm/dl Globulin 5.3 gm/dl Albumin/Globulin Ratio 0.5 Beta-Hydroxybutyric Acid 2.70 mg/dL Hepatitis C Antibody Screen NEG Influenza Type A (RT-PCR) Neg for Influ A Influenza Type B (RT-PCR) Neg for Influ B Bedside Lactic Acid Venous 2.76 mmol/L Bedside Glucose 344 mg/dl Test 04/11/17 16:50 04/11/17 20:36 04/12/17 05:40 Bedside Glucose 356 mg/dl 399 mg/dl White Blood Count 5.86 K/uL Red Blood Count 4.18 M/uL Hemoglobin 12.3 g/dL Hematocrit 35.4 % Mean Corpuscular Volume 84.7 fL Mean Corpuscular Hemoglobin 29.4 pg Mean Corpuscular Hemoglobin Concent 34.7 g/dl RDW Standard Deviation 41.0 fL RDW Coefficient of Variation 13.5 % Platelet Count 307 K/uL Mean Platelet Volume 9.4 fL
[2017-04-12] MEDS: ALBUT/IPRATROP 3MG/0.5MG NEB 3 ML VIAL INH SCH ×4 (07:30→20:00)
[2017-04-12] MEDS: FORMOTEROL FUMA NEBULIZER SOLN 20 MCG/2 ML VIAL INH SCH ×2 (07:30→21:01)
[2017-04-12] MEDS: POTASSIUM CHLORIDE 20 MEQ TABCR PO SCH ×2 (08:12→16:18)
[2017-04-12] MEDS: PAROXETINE 20 MG TAB PO SCH (08:14)
[2017-04-12] MEDS: AZITHROMYCIN 250 MG TAB PO SCH (08:15)
[2017-04-12] MEDS: NYSTATIN SUSP 500,000 U/5 ML UDC PO SCH ×4 (08:16→20:47)
[2017-04-12] MEDS: LISINOPRIL/HCTZ 10/12.5MG TAB PO SCH (08:16)
[2017-04-12] MEDS: PIPERACILL/TAZOBAC IV 3.375 GM in DEXTROSE 5% 100ML IV SCH ×3 (08:16→23:16)
[2017-04-12] MEDS: INSULIN ASPART 100 UNITS/ML 3 ML PEN SC SCH ×4 (08:20→22:29)
[2017-04-12] MEDS: HEPARIN SOD 5000 UNIT/0.5 ML CARP SQ SCH ×2 (08:20→20:46)
[2017-04-12] MEDS ORDERED: BUDESONIDE/FORMOTEROL FUMARATE 160/4.5 60 PUFFS/INHALER INH SCH (09:00)
[2017-04-12] MEDS ORDERED: DEXTROSE 50% 50 ML SYR IV PRN (09:30)
[2017-04-12] MEDS ORDERED: GLUCAGON FOR INJ 1 MG VIAL SQ PRN (09:30)
[2017-04-12] MEDS ORDERED: GLUCOSE 10 TABS/TUBE PO PRN (09:30)
[2017-04-12] MEDS ORDERED: GLUCOSE 40% GEL 15 GM TUBE PO PRN (09:30)
[2017-04-12] MEDS ORDERED: INSULIN GLARGINE SOLOSTAR 100 UNITS/ML 3 ML PEN SC SCH ×2 (09:45→21:00)
--- NOTE | 2017-04-12 10:52 | Clinical Documentation Query ---
QUERY 1 OF [address] AZEVEDO, In your clinical opinion is this patient being managed for: ( ) Sepsis, POA x( x ) Not Agree see progress notes and written response to same query ( ) Other explanation of clinical findings (Please Explain) ( ) Unable to determine (Please Define) ( ) Need to Discuss The medical record reflects the following clinical findings, treatment, and risk factors. Clinical Indicators: 71 yo male presenting with worsening respiratory symptoms. VS 37.2-123-22, 186/94, 88%Room Air. Lactic acid 2.76, glucose 417 Treatment: IV fluids, IV zosyn, zithromax po, nebs, O2 support, hold imuran Risk Factors:chronic imuran therapy, pneumonia, uncontrolled DM QUERY 2 OF 2 In your clinical opinion is this patient being managed for: (x ) possible gram negative or MRSA Pneumonia - see progress notes and written response to same query ( ) Not Agree ( ) Other explanation of clinical findings (Please Explain) ( ) Unable to determine (Please Define) ( ) Need to Discuss The medical record reflects the following clinical findings, treatment, and risk factors. Clinical Indicators: Documentation indicates concern for atypical pneumonia Treatment: IV zosyn Risk Factors: age, DM, chronic imuran therapy Please clarify and document your clinical opinion in the progress notes and discharge summary. Terms such as "probable", "suspected", "likely", "questionable", "possible", or "still to be ruled out" are acceptable. IF IN AGREEMENT, YOU MUST DOCUMENT ABOVE DIAGNOSTIC STATEMENT IN DAILY PROGRESS NOTES AND DISCHARGE SUMMARY. This document is not part of the patient's record. Thank You, Franny Best, RN [phone]
--- NOTE | 2017-04-12 13:53 | Hospitalist Progress Note ---
Hospitalist Progress Note Date of Service Apr 12, 2017. (Julienne Raman .ALEJANDRO) Subjective Pt evaluation today including: conversation w/ patient, physical exam, chart review, lab review, review of inpatient medication list Voiding: no voiding problems Mr. Malik is feeling better today, tolerating decrease in supplemental O2 to 2L. He continues to have cough with thick white sputum, sob, and wheezing ROS Constitutional: no chills, aches, sweats or fever Respiratory:see HPI Cardiac: no chest pain, palpitations, edema, orthopnea or lightheadedness GI: no abdominal pain, nausea, vomiting, diarrhea or constipation : no dysuria or hesitancy Extremities: no joint pain or weakness Skin: no rash All other systems reviewed and negative (Julienne Raman CRNP) Medications Medications Administered Medications (Trade) Dose Ordered Sig/Edward Route Start Time Stop Time Status Last Admin Dose Admin Potassium Chloride (Kcl 10 Meq / Wtr) 10 meq NOW STAT IV 04/11/17 11:17 04/11/17 11:18 DC 04/11/17 11:43 10 MEQ Piperacillin Sod/ Tazobactam Sod (Zosyn Iv) 4.5 gm NOW STAT IV 04/11/17 11:17 04/11/17 11:18 DC 04/11/17 11:34 4.5 GM Glipizide (Glucotrol Tab) 10 mg BIDM PO 04/11/17 17:00 05/11/17 16:59 04/12/17 08:13 10 MG Codeine Phosphate/ Guaifenesin (Robitussin-AC Sugar Free Syrup) 10 ml Q4H PRN PO 04/11/17 12:15 05/11/17 12:14 04/11/17 19:37 10 ML HCTZ/Lisinopril (Prinzide 10-12.5MG Tab) 1 tab QAM PO 04/12/17 09:00 05/12/17 08:59 04/12/17 08:16 1 TAB Paroxetine HCl (pAXil TAB) 20 mg QAM PO 04/12/17 09:00 05/12/17 08:59 04/12/17 08:14 20 MG Insulin Aspart (novoLOG ASPART) SLIDING SCALE PARAMETER ACHS SC 04/11/17 16:30 05/11/17 16:29 04/12/17 11:59 8 UNITS Insulin Glargine (Lantus Solostar Pen) 10 units ONE ONCE SC 04/11/17 14:00 04/11/17 14:01 DC 04/11/17 14:00 10 UNITS Formoterol Fumarate (Perforomist 20MCG/2ML Neb Soln) 20 mcg BIDR INH 04/11/17 20:00 05/11/17 19:59 04/12/17 07:30 20 MCG Albuterol/ Ipratropium (Duoneb) 3 ml QIDR INH 04/11/17 16:00 05/11/17 15:59 04/12/17 11:45 3 ML Potassium Chloride (Klor-Con Tab) 20 meq BIDM PO 04/11/17 17:00 04/12/17 17:01 04/12/17 08:12 20 MEQ Potassium Chloride 20 meq/ Sodium Chloride 1,010 ml @ 100 mls/hr Q10H6M IV 04/11/17 14:00 04/12/17 09:59 DC 04/12/17 01:39 100 MLS/HR Azithromycin (Zithromax Tab) 250 mg QAM PO 04/12/17 09:00 04/17/17 09:01 04/12/17 08:15 250 MG Prednisone (PredniSONE TAB) 40 mg DAILY PO 04/12/17 09:00 05/12/17 08:59 04/12/17 08:15 40 MG Methylprednisolone Sodium Succinate 40 mg/Syringe 0.64 ml @ 1.5 mls/min NOW ONCE IV 04/11/17 14:15 04/11/17 14:16 DC 04/11/17 14:04 1.5 MLS/MIN Magnesium Sulfate 1 gm/Prmx 100 ml @ 100 mls/hr NOW ONCE IV 04/11/17 14:30 04/11/17 15:29 DC 04/11/17 14:06 100 MLS/HR Azithromycin (Zithromax Tab) 500 mg STK-MED ONCE .ROUTE 04/11/17 13:02 04/11/17 13:03 DC 04/11/17 13:06 500 MG Piperacillin Sod/ Tazobactam Sod 3.375 gm/Dextrose 115 ml @ 28.75 mls/ hr Q8@0000,0800,1600 IV 04/11/17 16:00 04/18/17 15:59 04/12/17 08:16 28.75 MLS/HR Nystatin (Mycostatin Susp) 5 ml QID PO 04/12/17 09:00 04/17/17 08:59 04/12/17 11:59 5 ML Insulin Glargine (Lantus Solostar Pen) 10 units DAILY SC 04/12/17 09:45 05/12/17 09:44 04/12/17 10:40 10 UNITS (Julienne Raman CRNP) Objective Vital Signs Date Time Temp Pulse Resp B/P (MAP) Pulse Ox O2 Delivery O2 Flow Rate FiO2 04/12/17 11:47 36.8 107 18 164/78 (106) 93 Nasal Cannula 3.0 04/12/17 11:45 96 18 94 Nasal Cannula 2.0 04/12/17 09:33 Nasal Cannula 3.0 04/12/17 07:45 36.5 94 18 166/84 (111) 95 Nasal Cannula 3.0 04/12/17 07:30 96 18 96 Nasal Cannula 2.0 04/12/17 04:22 89 154/87 (109) 04/12/17 04:00 Nasal Cannula 3.0 04/12/17 04:00 36.3 92 20 168/95 (119) 95 Nasal Cannula 3.0 04/12/17 00:01 36.7 95 16 153/92 (112) 94 Nasal Cannula 3.0 04/12/17 00:00 Nasal Cannula 3.0 04/11/17 20:03 102 18 95 Nasal Cannula 3.0 04/11/17 20:00 94 Nasal Cannula 3.0 04/11/17 19:47 37.0 103 18 157/89 (111) 95 Nasal Cannula 3.0 04/11/17 16:00 94 Nasal Cannula 3.0 04/11/17 15:50 37.0 114 18 160/93 (115) 94 Nasal Cannula 3.0 04/11/17 15:19 109 18 94 Nasal Cannula 3.0 04/11/17 14:02 37.6 115 22 171/79 (109) 92 04/11/17 14:00 94 Nasal Cannula 2.0 (Julienne Raman CRNP) Physical Exam Notes: General: no distress Eyes: normal inspection, PERLL Respiratory: chest non tender, clear to auscultation, normal breath sounds, no respiratory distress, no accessory muscle use Cardiac: regular rate and rhythm, no rub or gallop, no murmur, no edema, no jvd GI/: active bowel sounds, no abd pain or tenderness, soft, non distended Extremities: normal range of motion, normal strength, non tender Neuro/Psych: alert and oriented x 3, normal mood and affect Skin: normal color, dry (Julienne Raman CRNP) Laboratory Results Last 24 Hours Test 04/11/17 13:47 04/11/17 16:50 04/11/17 20:36 04/12/17 05:40 Bedside Glucose 344 mg/dl 356 mg/dl 399 mg/dl White Blood Count 5.86 K/uL Red Blood Count 4.18 M/uL Hemoglobin 12.3 g/dL Hematocrit 35.4 % Mean Corpuscular Volume 84.7 fL Mean Corpuscular Hemoglobin 29.4 pg Mean Corpuscular Hemoglobin Concent 34.7 g/dl RDW Standard Deviation 41.0 fL RDW Coefficient of Variation 13.5 % Platelet Count 307 K/uL Mean Platelet Volume 9.4 fL Sodium Level 134 mmol/L Potassium Level 3.6 mmol/L Chloride Level 96 mmol/L Carbon Dioxide Level 33 mmol/L Anion Gap 5.0 mmol/L Blood Urea Nitrogen 15 mg/dl Creatinine 0.97 mg/dl Est Creatinine Clear Calc Drug Dose 68.9 ml/min Estimated GFR () 90.7 Estimated GFR (Non- 78.2 BUN/Creatinine Ratio 15.5 Random Glucose 232 mg/dl Calcium Level 8.7 mg/dl Magnesium Level 2.1 mg/dl Test 04/12/17 07:09 04/12/17 11:13 Bedside Glucose 231 mg/dl 326 mg/dl (Julienne Raman CRNP) Assessment and Plan 71-year-old male here with acute on chronic respiratory failure with hypoxemia with concern for atypical pneumonia PNA/ Acute on chronic respiratory failure with hypoxemia - Continue zosyn and azithromycin, prednisone - titrate O2 per protocol - Continue nebulizers - Consulted pulmonology Crohn's disease - hold Imuran for now until feeling better - The patient gives a 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 - Abd xray negative for ileus or small bowel obstruction - Sees Dr. Boogie outpatient Uncontrolled Type II DM - Increased lantus to 10 units BID and added carb count to ss as patient continues to have bsgs in the 300s - Continue glipizide and hold metformin HTN - continue lisinopril/hydrochlorothiazide, prn hydralazine Depression - continue his Paxil at 20 Lovenox for DVT prevention (Julienne Raman ., ALEJANDRO) i personally examined pt and verified all miller points w S Danisha ALLEN feeling better wonders about sugars and notes that PCP was talking about moving to insulins extensive discussion about pathophys of DM2 and how enormously it relates to diet vitals noted nad breathing quiet but generally fairly clear now scattered rhonchi turned off O2 90-92% on RA pneumonia/hypoxia -appearing far more likely infectious than imuran complication -for clarification - asked about sepsis on admission - suspect HR and RR related to hypoxia, not sepsis. cant definitely rule sepsis out based on SIRS but seems unlikely w clinical picture. have to cover for gram negatives w immunosuppression, MRSA would be of consideration but he's improvign wtihout treatment for this DM2 -uncontrolled -insulin management for now, quite motivated for lifestyle change, discussed 2hr pp glucoses to learn from how food affects him improving ?home in 24hrs? wtih ongoing improvemetn (Nick Conrad D.O.)
[2017-04-12] MEDS ORDERED: INSULIN GLARGINE SOLOSTAR 100 UNITS/ML 3 ML PEN SC ONE (23:45)
[2017-04-13] VITALS (7 sets, daily range): BP systolic 164–181; BP diastolic 93–99; PULSE 73–107; TEMP 36.3–37.1; O2SAT 92–97
[2017-04-13] MEDS: GUAIFENESIN/CODEINE 200MG/20MG 10ML UDC PO PRN ×2 (05:12→09:32)
[2017-04-13] MEDS: ALBUT/IPRATROP 3MG/0.5MG NEB 3 ML VIAL INH SCH ×2 (07:03→11:09)
[2017-04-13] MEDS: FORMOTEROL FUMA NEBULIZER SOLN 20 MCG/2 ML VIAL INH SCH (07:03)
[2017-04-13] MEDS: LISINOPRIL/HCTZ 10/12.5MG TAB PO SCH (08:02)
[2017-04-13] MEDS: PAROXETINE 20 MG TAB PO SCH (08:02)
[2017-04-13] MEDS: AZITHROMYCIN 250 MG TAB PO SCH (08:02)
[2017-04-13] MEDS: NYSTATIN SUSP 500,000 U/5 ML UDC PO SCH ×2 (08:02→12:00)
[2017-04-13] MEDS: INSULIN ASPART 100 UNITS/ML 3 ML PEN SC SCH ×2 (08:16→12:06)
[2017-04-13] MEDS: HEPARIN SOD 5000 UNIT/0.5 ML CARP SQ SCH (08:17)
[2017-04-13] MEDS: PIPERACILL/TAZOBAC IV 3.375 GM in DEXTROSE 5% 100ML IV SCH (08:18)
[2017-04-13] MEDS ORDERED: INSULIN GLARGINE SOLOSTAR 100 UNITS/ML 3 ML PEN SC SCH (09:00)
[2017-04-13] MEDS ORDERED: AZIT-57 PO (12:50)
[2017-04-13] MEDS ORDERED: VNTHFA/IN INH (12:50)
[2017-04-13] MEDS ORDERED: PRD10 PO (12:50)
[2017-04-13] MEDS ORDERED: AMOX875T PO (12:50)
--- NOTE | 2017-04-13 13:14 | Discharge Instructions ---
Discharge Instructions Date of Service Apr 13, 2017. Admission Reason for Admission: Acute Respiratory Failure With Hypoxia Discharge Discharge Diagnosis / Problem: Pneumonia Discharge Goals Goal(s): Improve disease control Activity Recommendations Activity Limitations: resume your previous activity . Instructions / Follow-Up Instructions / Follow-Up Your blood sugars have been running high during your admission - 300-400. Additionally, your A1c was elevated the last time you had it drawn indicating that you have been running high blood sugars for at least the last three months. I considered discharging you to home with insulin given these numbers, however, I think that you may be able to avoid transitioning to insulin if you seriously change your lifestyle to manage your sugars better. Blood sugar monitoring: * You should take post prandial sugars about two hours after eating. If your sugars are over 150, take a look at what you ate during the previous meal and cut back or eliminate simple carbohydrates (white flour, white rice, white bread , potatoes, candy, sweets). You may also find that other more complex carbohydrates increase your bsgs (brown rice, whole wheat bread) and you should cut back on these if they are causing a rise in your post prandial blood sugars. Generally, cutting down on carbohydrates will be beneficial to your blood sugars. * You should also take a pre prandial (before meal) bsg a few times per week * Make a log of your sugars to take to your primary care provider Exercise * Try to incorporate some kind of physical activity into your day such as walking for a half an hour (after you have recovered from the pneumonia). Exercise will also help to manage your blood sugars. Weight Loss * Weight loss may be a happy after effect of cutting down on carbs and exercising and weight loss itself will help to reduce your blood sugars You should expect to have higher blood sugars while you are finishing your prednisone taper Please keep your follow up appt with your primary care provider next week. Please restart your Imuran after your antibiotics are finished. Please complete your antibiotics and prednisone taper as directed. Prednisone taper: 30 mg x 2 days 20 mg x 2 days 10 mg x 2 days Current Hospital Diet Patient's current hospital diet: Diabetes Type 2 Diet Discharge Diet Recommended Diet: Diabetes Type 2 Diet Procedures Procedures Performed: Chest CT Abd Xray Chest Xray Pending Studies Studies pending at discharge: no Laboratory Results Medications (Trade) Dose Ordered Sig/Edward Route Start Time Stop Time Status Last Admin Dose Admin Insulin Glargine (Lantus Solostar Pen) 10 units BID SC 04/12/17 21:00 04/13/17 00:26 DC 04/12/17 22:29 10 UNITS Insulin Glargine (Lantus Solostar Pen) 15 units BID SC 04/13/17 09:00 05/12/17 09:44 04/13/17 08:17 15 UNITS Insulin Glargine (Lantus Solostar Pen) 5 units NOW ONCE SC 04/12/17 23:45 04/13/17 00:31 DC 04/13/17 00:43 5 UNITS Medical Emergencies . Who to Call and When: Medical Emergencies: If at any time you feel your situation is an emergency, please call 911 immediately. . Non-Emergent Contact Non-Emergency issues call your: Primary Care Provider Call Non-Emergent contact if: you have a fever, you have any medication questions . . "Provider Documentation" section prepared by Julienne Raman. . VTE Core Measure Inpt VTE Proph given/why not?: Enoxaparin (Lovenox)SQ
--- NOTE | 2017-04-13 13:32 | Discharge Summary ---
Discharge Summary Date of Service Apr 13, 2017. Discharge Summary Admission Date: Apr 11, 2017 at 12:35 Discharge Date: Apr 13, 2017 Discharge Disposition: Home Principal Diagnosis: Pneumonia Problems/Secondary Diagnoses: Acute on chronic respiratory failure with hypoxemia, Crohn's disease, Uncontrolled Type II DM, HTN, Depression Immunizations: Have You Had Influenza Vaccine: Yes Influenza Vaccine Date: Dec 21, 2011 History of Tetanus Vaccine?: Yes Tetanus Immunization Date: Dec 21, 2011 History of Pneumococcal: Yes Pneumococcal Date: Dec 21, 2011 History of Hepatitis B Vaccine: Unknown Procedures: CT OF THE CHEST WITH IV CONTRAST CLINICAL HISTORY: Abnormal chest x-ray. Shortness of breath. Basilar pneumonitis. COMPARISON STUDY: Chest x-ray dated 04/11/2017 TECHNIQUE: Following the IV administration of 93 mL of Optiray-320, CT of the thorax was performed from the thoracic inlet to the lung bases. Images are reviewed in the axial, sagittal, and coronal planes. IV contrast was administered without complication. A dose lowering technique was utilized adhering to the principles of ALARA. CT DOSE: 398.73 mGycm FINDINGS: Thyroid: Imaged portions of the thyroid gland are normal in appearance. Thoracic aorta: The thoracic aorta is normal in course and caliber, noting standard 3-vessel arch anatomy. No aneurysm or dissection is seen. Pulmonary vasculature: The pulmonary trunk is normal in caliber. There are no central filling defects identified to suggest pulmonary embolus. Note that this examination was not protocoled for the evaluation of pulmonary emboli. HEART: The heart is normal in size. There are coronary artery calcifications. Lungs and pleural spaces: No pleural effusions are visualized. There are multifocal ill-defined pulmonary nodules, most pronounced in the lower lobes. These measure up to 16 mm in diameter. The overall distribution strongly favors an infectious/inflammatory process. Short-term follow-up subsequent to appropriate antibiotic therapy is recommended. Mediastinum: Mediastinal lymph nodes are the upper limits of normal in size Roz: There are calcified hilar lymph nodes likely postinflammatory Axilla: There is no evidence of pathologic axillary lymphadenopathy Upper abdomen: There is hepatic steatosis. There is cholelithiasis. Skeletal structures: There are no lytic or blastic osseous lesions. IMPRESSION: 1. Multifocal ill-defined pulmonary nodules, most pronounced in the lower lobes. The overall appearance and distribution favors an infectious/inflammatory process. Short-term follow-up subsequent to therapy is recommended 2. Hepatic steatosis 3. Cholelithiasis Electronically signed by: Braulio Cerda M.D. 04/11/2017 4:14 PM ABDOMEN 2 VIEWS CLINICAL HISTORY: 71 years-old Male presenting with eval for sbo ileus. TECHNIQUE: Upright and supine views of the abdomen were obtained. COMPARISON: 11/10/[address] from 06/20/2012. FINDINGS: Nonobstructive bowel gas pattern. No gross pneumoperitoneum. Calcification projects over the bilateral renal roz in the region of the renal pelvises, likely calculi. Multiple pelvic phleboliths. Osseous structures normal. Lung bases clear. IMPRESSION: 1. No bowel obstruction or free air. 2. Bilateral renal calculi suspected in the renal pelvises. Electronically signed by: Marvel Ren M.D. 04/11/2017 3:59 PM CHEST ONE VIEW PORTABLE HISTORY: 71 years-old Male shortness of breath acute shortness of breath COMPARISON: Acute abdominal series radiographs 11/10/2014 TECHNIQUE: Portable AP view of the chest FINDINGS: Cardiac silhouette is within normal limits. Lungs are hypoinflated with mild right hemidiaphragmatic elevation and bronchovascular crowding. There are patchy left greater than right bibasilar reticulonodular and alveolar opacities. No pneumothorax or large pleural effusion. Bones of the chest appear grossly intact. IMPRESSION: 1. Patchy left greater than right bibasilar reticulonodular and alveolar opacities are suspicious for pneumonia or aspiration pneumonitis. 2. Mild hypoinflation. Electronically signed by: Liang Sanchez M.D. 04/11/2017 9:57 AM Dictated Date/Time: 04/11/2017 9:50 AM Consultations: Dr. Ozuna from pulmonology Medication Reconciliation New Medications: Albuterol Hfa (Ventolin Hfa) 200 Puffs/36431 Mcg Aers 2 PUFFS INH Q4H PRN for Shortness of Breath, #1 INHALER Amoxicillin & Pot Clavulanate (Augmentin 875-125 mg) 1 Tab Tab 875 MG PO BID for 5 Days, #10 TAB Azithromycin (Azithromycin) 250 Mg Tab 250 MG PO QAM for 3 Days, #3 TAB Prednisone (Prednisone) 10 Mg Tab 30 MG PO DAILY for 6 Days, #12 TAB 30 mg x 2 days 20 mg x 2 days 10 mg x 2 days Continued Medications: Acetaminophen (Tylenol) 325 Mg Tab 325 MG PO, TAB Budesonide/Formoterol Fumarate (Symbicort 160-4.5 Mcg/Act) 60 Puffs/Inhaler Aero 2 PUFFS INH QAM Cholecalciferol (Vitamin D) 2,000 Unit Tab 1 TAB PO QPM Cyanocobalamin (Vitamin B-12) 1,000 Mcg Tab 1000 MCG PO QPM Glipizide (Glucotrol) 10 Mg Tab 10 MG PO BID, TAB Guaifenesin/Codeine (Robitussin-Ac Syrup) Syrp 10 ML PO Q4H PRN for Cough for 4 Days, #240 ML Hctz/Lisinopril (Lisinopril/Hctz 10/12.5 Mg) 1 Ea Tab 1 TAB PO QAM Linagliptin (Tradjenta) 5 Mg Tab 1 TAB PO QPM Metformin Hcl (Glucophage) 850 Mg Tab 850 MG PO TID, TAB Multivitamins/Minerals (Mvi With Minerals) Tab 1 TAB PO QAM Paroxetine (Paxil) 40 Mg Tab 0.5 TAB PO QAM Discontinued Medications: Azathioprine (Imuran) 50 Mg Tab 1.5 TAB PO QPM Discharge Exam ROS Constitutional: no chills, aches, sweats or fever Respiratory: no sob, +cough, +sputum, + wheezing Cardiac: no chest pain, palpitations, edema, orthopnea or lightheadedness GI: no abdominal pain, nausea, vomiting, diarrhea or constipation : no dysuria or hesitancy Extremities: no joint pain or weakness Skin: no rash All other systems reviewed and negative PE General: no distress Eyes: normal inspection, PERLL Respiratory: chest non tender, coarse bases with faint diffuse wheezes, no respiratory distress, no accessory muscle use Cardiac: regular rate and rhythm, no rub or gallop, no murmur, no edema, no jvd GI/: active bowel sounds, no abd pain or tenderness, soft, non distended Extremities: normal range of motion, normal strength, non tender Neuro/Psych: alert and oriented x 3, normal mood and affect Skin: normal color, dry Hospital Course 71-year-old male typically sees the [facility], presented to them 1 week ago with fevers chills and a productive cough. Reportedly his medicines were to be mailed to him but he never received them and he became progressively more short of breath and weak. He presented to the ER where he was found to be hypoxemic. Chest x-ray showed bilateral reticulonodular changes consistent with possible bilateral pneumonia. The patient had blood cultures obtained and was started on Zosyn in the ER and recommended for admission. This patient also takes Imuran for Crohn's disease which raises the point of either an atypical infection or possibly even Imuran associated pneumonitis - these were ruled out. There is discussion on the x-ray report of possible aspiration although clinically the patient denies any signs or symptoms of aspiration He had uncontrolled diabetes on presentation and reports last A1c was 9.1 His Crohn's disease as mentioned has been stable but he typically has difficulty digesting food with increased abdominal noises and bloating he however has been having good bowel movements without any blood PNA/ Acute on chronic respiratory failure with hypoxemia - Given zosyn and azithromycin, prednisone in patient - changed to Augmentin for dc with azithromycin and prednisone taper - titrated O2 per protocol - RA for discharge, satting well - Given nebulizers in patient - albuterol inhaler for home - Consulted pulmonology Crohn's disease - hold Imuran for now until finished with abx - The patient gives a 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 - Abd xray negative for ileus or small bowel obstruction - Sees Dr. Boogie outpatient Uncontrolled Type II DM - Increased lantus to 10 units BID and added carb count to ss as patient continues to have bsgs in the 300s - Continued glipizide and hold metformin in patient - Decided not to send patient home with insulin - given teaching on lifestyle to avoid starting insulin and discharged with po medications. Patient verbalized understanding and is interested in attempting to change lifestyle before being placed on insulin. HTN - continued lisinopril/hydrochlorothiazide, prn hydralazine - bp ran a little high while here - follow outpatient Depression - continue his Paxil at 20 i personally examined pt and verified all miller points wilian ALLEN feeling better wants to go home expresses motivation on lifestyle change for DM and understandign of cause- effect of foods and control of DM2 vitals noted nad breathing unlabored no pallor or icterus pneumonia/COPD exacerbation -concern inititally on reaction to imuran - this seems unlikely given that clinical course behaved as infection -w immune compromise w IBD had to consider gram negative (zosyn --> augmentin) and less likely MRSA (responded to treatment that would not cover MRSA making it unlikely) -stable for home, hypoxia improved to where home O2 not needed DM2 -uncontrolled at baseline, worse w steroids -lifestyle change discussed yesterday and today extensively IBD -would like to f/u w Dr Boogie again -continue imuran unless it becomes clear it's causing problems, whcih again at this point seems unlikely stable for home Total Time Spent: Greater than 30 minutes This includes examination of the patient, discharge planning, medication reconciliation, and communication with other providers. Discharge Instructions Please refer to the electronic Patient Visit Report (Discharge Instructions) for additional information. Follow-Up PCP next week GI Additional Copies To Blaine Boogie M.D.; Ritesh Chavarria M.D.
--- NOTE | 2017-04-13 15:56 | Pulmonology Progress Note ---
Pulmonary Progress Note Date of Service Apr 13, 2017. Attending Dr. Ozuna Subjective Time patient seen: 11:15 AM Patient seen and examined at bedside. Continues with wheezes but much improved. No further cough or sputum production. No chest pain or tightness. No acute complaints. Objective Vital Signs - as noted below Laboratory Data - as noted below Physical Exam: General - NAD Eyes - No icterus, gaze conjugate ENT - Mucosa moist, no lesions. Positive for oral candidiasis on the tongue and posterior oropharynx Neck - Supple, No JVD Lungs - No rales or rhonchi. Faint bronchospasm but good aeration Heart - Regular, rate controlled Abdomen - Soft, NT, ND, BS present Extremities - No edema, pedal pulses intact Neuro - A&OX3 Assessment & Plan COPD EXACERBATION * Patient placed on azithromycin for atypical coverage * Patient has continued Zosyn during his inpatient stay. We discharged with azithromycin and Augmentin * Continue bronchodilators HFA and placed on prednisone taper PNEUMONITIS * CT chest shows tree-in-bud opacities at the bases * Patient chronically immunosuppressed with Imuran for Crohn's disease * Imuran has been held at this time * Continue antibiotics above * Patient oxygenating in the mid 90s on room air * Suggest follow-up chest x-ray in two weeks with primary care provider to verify clearing CROHN'S DISEASE * Imuran held - discuss restarting with gastroenterology * Outpatient follow-up within the next two weeks DVT PROPHYLAXIS * Heparin 5000 units sq q12h * Ambulate as tolerated Thank you for including us in the care of this patient. Data Vital Signs: Date Time Temp Pulse Resp B/P (MAP) Pulse Ox O2 Delivery O2 Flow Rate FiO2 04/13/17 13:23 37.1 107 18 93 Room Air 04/13/17 12:00 Room Air 04/13/17 11:59 37.1 107 18 181/99 (126) 93 04/13/17 11:09 82 16 92 Room Air 04/13/17 08:10 Room Air 04/13/17 07:24 36.3 81 16 169/93 (118) 92 04/13/17 07:04 73 16 97 Nasal Cannula 2.0 04/13/17 04:00 36.4 95 20 164/99 (120) 93 Room Air 04/13/17 04:00 Room Air 04/13/17 02:08 88 167/99 (121) 04/13/17 00:00 Nasal Cannula 2.0 04/12/17 22:49 36.6 102 24 176/99 (124) 94 Room Air 04/12/17 21:02 92 16 94 Nasal Cannula 2.0 04/12/17 20:00 Nasal Cannula 3.0 04/12/17 19:35 36.4 97 20 174/54 (94) 96 2.0 04/12/17 16:08 96 16 94 Nasal Cannula 2.0 04/12/17 16:00 Nasal Cannula 3.0 Laboratory Results: Last 24 Hours Test 04/12/17 20:07 04/12/17 20:09 04/12/17 23:20 04/13/17 07:47 Bedside Glucose 424 mg/dl 385 mg/dl 300 mg/dl 128 mg/dl Test 04/13/17 11:27 Bedside Glucose 273 mg/dl
== END 2017-04-13 14:10 | disposition home or self-care (01) | DRG 177 ==
LOC: C.EDB 08:51 → C.MED 12:35 → ENRESERV 12:54
PROVIDERS: ADMIT Internal Medicine; ATTEND Family Medicine
DX: J15.6 Pneumonia due to other Gram-negative bacteria (principal); J96.21 Acute and chronic respiratory failure with hypoxia; K50.90 Crohn's disease, unspecified, without complications; Z99.81 Dependence on supplemental oxygen; Z82.49 Family history of ischemic heart disease and other diseases of the circulatory system; E11.9 Type 2 diabetes mellitus without complications; I10 Essential (primary) hypertension; K58.9 Irritable bowel syndrome, unspecified

== ENCOUNTER → 2017-07-20 | Outpatient (CLI) | payer OTHER ==
[~2017-07-20] MED LIST changes: +ACET-1311 PO; -AZAT50TA17 PO; +AZIT-57 PO; +GUAISYP4 PO; +OPTIRAY 320 IV PRN; +PRD10 PO; +VNTHFA/IN INH
--- NOTE | 2017-07-20 09:08 | DIAGNOSTIC IMAGING REPORT ---
ABD/PELVIS IV AND ORAL CONT CLINICAL HISTORY: 71 years-old Male presenting with UNSPECIFIED ABDOMINAL PAIN, ENTEROGRAPHY, history of Crohn's disease. TECHNIQUE: Multidetector CT of the abdomen and pelvis was performed after the administration of oral and intravenous contrast. An enterography protocol was used. IV contrast: 92 mL of Optiray 320. A dose lowering technique was used consistent with the principles of ALARA (as low as reasonably achievable). COMPARISON: 06/20/2012 and MR enterography from 2017. CT DOSE (mGy.cm): The estimated cumulative dose is 656.51 mGy.cm. FINDINGS: Crayon Grader topogram: Unremarkable. Lung bases: Basilar dependent consolidation and volume loss in the right lower lobe likely atelectasis. Mild bronchial wall thickening. Solid 8 mm nodule in the left lower lobe (series 3 image 60), previously 7 mm in 2012. No new nodule at the lung bases Normal heart size. Coronary artery calcification. No pericardial or pleural effusion. Liver: Normal morphology. Density suggestive of hepatic steatosis. No focal lesion. Patent hepatic vasculature. Biliary: No intrahepatic or extrahepatic biliary ductal dilatation. Gallbladder contains gallstones. Pancreas: Normal. Spleen: Parenchymal calcifications could suggest a history of prior granulomatous infection. Adrenal glands: Normal. Kidneys and ureters: Bilateral nephrolithiasis. No hydronephrosis. Bilateral mild urothelial thickening. Few tiny hypodensities in the kidneys likely cysts but too small to characterize. Ureters not dilated. Bladder: Circumferential bladder wall thickening. Pelvic organs: Prostate enlargement likely secondary to benign prostatic hyperplasia. Bowel: Minimal rectal wall thickening may be present. Apparent asymmetric wall thickening along the left anterolateral aspect (series 3 image 404) is most likely due to tortuosity rather than actual focal thickening. The colon maintains a normal haustral pattern without pericolonic inflammatory change. The appendix may be surgically absent. Chronic discontinuous wall thickening of the distal ileum including the terminal ileum. Minimal intervening distention of small bowel. No bowel obstruction. No perienteric inflammatory change. Mild prominence of the vasa recta in the small bowel. Tethering is apparent in the right mid abdomen (series 3 image 283). Peritoneal cavity: No free fluid or intraperitoneal gas. Infiltration of the small bowel mesentery similar to prior exam with multiple enlarged mesenteric lymph nodes. 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 Lymph nodes: Enlarged mesenteric lymph nodes in the small bowel mesentery. Decreased size of the suspected lymph node conglomerate in the mesentery in comparison to 2013. This has partially calcified. Vasculature: Atherosclerosis of the normal caliber abdominal aorta. IVC patent. Abdominal wall: Fat-containing left inguinal hernia. Musculoskeletal: Degenerative changes of the spine. IMPRESSION: 1. No convincing evidence of active inflammatory change in the bowel. Chronic discontinuous wall thickening in the distal ileum without evidence of a partial or complete bowel obstruction. This likely represents mild fibrostenotic disease. No evidence of penetrating disease. 2. 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 This is not significantly changed since 2013 though the mesenteric mass/suspected conglomerate lymphadenopathy has decreased in size. 3. Bilateral nephrolithiasis. The presence of mild bilateral urothelial thickening may be reactive to chronic irritation or imply chronic reflux. 4. Wall thickening of the bladder likely indicates chronic bladder outlet obstruction secondary to prostatomegaly. 5. Minimal interval increase in size of a 8 mm left lower lobe nodule. The lack of significant change since 2013 suggest pulling 80. 6. Cholelithiasis. 7. Hepatic steatosis. Electronically signed by: Marvel Ren M.D. 07/20/2017 9:07 AM Dictated Date/Time: 07/20/2017 8:33 AM
== END | disposition home or self-care (01) ==
LOC: C.CTS 06:29
PROVIDERS: ATTEND Physician Assistant Medical
DX: K50.90 Crohn's disease, unspecified, without complications (principal); R10.9 Unspecified abdominal pain; N20.0 Calculus of kidney; K80.20 Calculus of gallbladder without cholecystitis without obstruction; K76.0 Fatty (change of) liver, not elsewhere classified

== ENCOUNTER 2019-01-01 11:21 | Inpatient (IN) ==
[2019-01-01] MEDS ORDERED: SODIUM CHLORIDE 0.9% 1000ML 1,000 ML IV ONE (12:12)
--- NOTE | 2019-01-01 12:28 | XRay Report ---
XR chest 1V portable HISTORY: Stroke symptoms. COMPARISON: Chest 04/11/2017. FINDINGS: No pneumothorax. No pleural effusions. Mild elevation right hemidiaphragm. This is slightly progressed. The heart is normal in size. Bibasilar linear densities are nonspecific but favor subseg mental atelectasis. The upper lung zones remain clear. No evidence for pulmonary edema. IMPRESSION: 1. A few small bibasilar linear densities. These are nonspecific but favor subsegmental atelectasis. 2. Elevation of the right hemidiaphragm which has slightly progressed. Electronically signed by: Jersey Venegas M.D. 01/01/2019 12:27 PM
[2019-01-01 12:47] LABS: Basophils # (auto) 0.03 K/uL (0-0.2); Basophils % (auto) 0.5 %; Eosinophils # (auto) 0.05 K/uL (0-0.5); Eosinophils % (auto) 0.9 %; Hematocrit (blood only) 40.7 % (42-52); Hemoglobin 13.9 g/dL (14.0-18.0); Immature Granulocytes # (auto) 0.01 K/uL (0.00-0.02); Immature Granulocytes % (auto) 0.2 %; Lymphocytes # (auto) 1.34 K/uL (1.2-3.4); Lymphocytes % (auto) 23.5 %; Mean Corpuscular Hemoglobin 29.7 pg (25-34); Mean Corpuscular Hgb Conc 34.2 g/dL (32-36); Mean Platelet Volume 9.5 fL (7.4-10.4); Monocytes % (auto) 10.5 %; Neutrophils # (auto) 3.67 K/uL (1.4-6.5); Neutrophils % (auto) 64.4 %; Platelet Count 237 K/uL (130-400); RDW Coefficient of Variation 14.2 % (11.5-14.5); RDW Standard Deviation 44.7 fL (36.4-46.3); Red Blood Count 4.68 M/uL (4.7-6.1)
[2019-01-01 13:02] LABS: Albumin Level 3.5 gm/dl (3.4-5.0); BUN Creatinine Ratio 15.1 (10-20); Calcium 8.9 mg/dl (8.5-10.1); Creatinine Clr Calc Pharmacy 57.4 ml/min; Est GFR (Non-African American) 62.1
[2019-01-01 13:05] LABS: Albumin Globulin Ratio 0.9 (0.9-2); Bilirubin,Total 0.5 mg/dl (0.2-1); Total Protein 7.5 gm/dl (6.4-8.2)
--- NOTE | 2019-01-01 13:31 | CT Scan Report ---
CT head/brain wo con CLINICAL HISTORY: 73 years-old Male with cva. Acute strokelike symptoms with left-sided numbness and tingling TECHNIQUE: Multiple axial CT images of the head were obtained without contrast. A dose lowering tech nique was utilized adhering to the principles of ALARA. CT DOSE: 537.48 mGy.cm COMPARISON: None. FINDINGS: No acute intracranial hemorrhage, midline shift, intracranial mass, hydrocephalus, territorial ischem ia or abnormal extra-axial collection. Cerebral vascular calcifications are noted. Subcentimeter hypo dense focus of the right thalamus measuring 6 mm. Minimal patchy white matter hypodensities suggest c hronic microvascular ischemic disease. The calvarium is intact. The paranasal sinuses, mastoid air cells, and middle ear cavities are clear . IMPRESSION: 1. No acute intracranial hemorrhage, midline shift or acute territorial infarct. 2. Subcentimeter focus of decreased attenuation of the right thalamus suggests age-indeterminate lacu nikhil infarction. Correlate clinically. The above report was generated using voice recognition software. It may contain grammatical, syntax o r spelling errors. Electronically signed by: Liang Sanchez M.D. 01/01/2019 1:29 PM
[2019-01-01 13:51] LABS: Appearance Urine Clear (Clear); Bacteria Urine Automated Negative (Negative); Bilirubin Urine Negative (Negative); Blood Urine Trace (Negative); Cast Urine Automated 0 /lpf (0-5); Color Urine Yellow; Glucose Urine UA 3+ (Negative); Ketones Urine Trace (Negative); Leukocyte Esterase Urine Negative (Negative); Nitrite Urine Negative (Negative); Protein Urine Negative (Negative); RBC Urine Automated 0-4 /hpf (0-4); Specific Gravity Urine 1.033 (1.000-1.030); Urobilinogen Urine Negative (Negative)
--- NOTE | 2019-01-01 14:42 | Emergency Department Note ---
Entered by Anjum Ibarra acting as a scribe for Nick Valladares DO History of Present Illness General Chief complaint: Illness Source: patient History of Present Illness Provider complaint: Numbness Onset (ago): week(s) 1 Location: upper extremity and left Pain Consistency: + constant Maximum Pain Intensity: 0 Quality: + other (Numbness) Associated symptoms: + other (Facial numbness); no chest pain and no shortness of breath The patient is a 73 year old male w/ PMHx of Crohn's disease, HTN, COPD and hyperglycemia who presents to the ED w/ CC of constant left hand numbness that started about a week ago. The patient also endorses some left facial numbness. The patient reports his symptoms started while he was sleeping. The patient states he had a flu shot earlier this month [facility], however he was sent to the ED for further evaluation. The patient denies any other symptoms at this time. He does not have any history of cardiac disease or stroke. Home Medications Home Medications Medication Instructions Recorded Confirmed Type budesonide-formoterol [Symbicort] 2 puff INHALATION BID 01/01/19 01/01/19 History cholecalciferol (vitamin D3) 2,000 unit PO DAILY@1200 01/01/19 01/01/19 History [Vitamin D3] cyanocobalamin (vitamin B-12) 1,000 mcg PO DAILY@1200 01/01/19 01/01/19 History [Vitamin B-12] epinephrine [EpiPen] 0.3 mg IM UD PRN 01/01/19 01/01/19 History glipizide 10 mg PO BIDM 01/01/19 01/01/19 History ibuprofen [Advil] 200 mg PO Q6H PRN 01/01/19 01/01/19 History linagliptin 5 mg PO HS 01/01/19 01/01/19 History lisinopril-hydrochlorothiazide 1 tab PO QAM 01/01/19 01/01/19 History metformin 850 mg PO TIDM 01/01/19 01/01/19 History ertblhyu-jap-WD-lycopen-lutein 1 tab PO QAM 01/01/19 01/01/19 History [Centrum Silver Men] paroxetine HCl [Paxil] 20 mg PO QAM 01/01/19 01/01/19 History Allergies Allergy/AdvReac Type Severity Reaction Status Date / Time bee venom protein (honey bee) Allergy Intermediate HIVES Unverified 01/01/19 13:26 No Known Drug Allergies Allergy Unknown . Verified 01/01/19 13:26 Past Med/Surg History Medical History Crohn's disease Hypertension Acute respiratory failure with hypoxia Diarrhea (Acute) Hyperglycemia (Acute) Vomiting (Acute) Family History Other Family history non-contributory Social History Preferred Language: Yi Communication Ability: Effective Beliefs That Will Affect Care: None Current Living Situation: Spouse Other Information That Helps Us Care for You: No Feels Safe at Home: Yes Safety Concerns: Feels Safe At This Time Smoking Status: Former smoker Hx Alcohol Use: No Hx Substance Use: No Review of Systems See HPI for pertinent positives & negatives. and A total of 10 systems reviewed and were otherwise negative Physical Exam Vital Signs Vital Signs - 24 hr 01/01/19 11:27 01/01/19 12:13 01/01/19 13:44 Temperature 36.9 C Temperature Source Oral Sepsis Recent Fever Within 48 Hours No Sepsis New/Unexplained Change in Mental Status No Sepsis Action Taken by Nursing No Action Required Pulse Rate 108 H Pulse Rate [Apical] 102 H Pulse Rhythm Regular Pulse Rhythm [Apical] Regular Respiratory Rate 17 17 Respiratory Effort / Characteristics Non-Labored Spontaneous Non-Labored Spontaneous Respiratory Depth Normal Normal Respiratory Pattern Regular Regular Blood Pressure 142/83 H Blood Pressure [Right Arm] 158/90 H Blood Pressure Mean 102 Blood Pressure Mean [Right Arm] 112 Pulse Oximetry 95 95 98 Oxygen Delivery Method Room Air Room Air Room Air 01/01/19 14:00 Temperature Temperature Source Sepsis Recent Fever Within 48 Hours Sepsis New/Unexplained Change in Mental Status Sepsis Action Taken by Nursing Pulse Rate Pulse Rate [Apical] 106 H Pulse Rhythm Pulse Rhythm [Apical] Regular Respiratory Rate 18 Respiratory Effort / Characteristics Non-Labored Spontaneous Respiratory Depth Normal Respiratory Pattern Regular Blood Pressure Blood Pressure [Right Arm] 145/88 H Blood Pressure Mean Blood Pressure Mean [Right Arm] 107 Pulse Oximetry 95 Oxygen Delivery Method Room Air GENERAL: Sitting up in bed, alert, well appearing, well nourished, no distress, non-toxic EYE EXAM: normal conjunctiva. PERRL and EOM's intact. OROPHARYNX: no exudate, no erythema, lips, buccal mucosa, and tongue normal and mucous membranes are moist NECK: supple, no nuchal rigidity, no adenopathy, non-tender LUNGS: Clear to auscultation. Normal chest wall mechanics HEART: no murmurs, S1 normal and S2 normal ABDOMEN: abdomen soft, non-tender, normo-active bowel, sounds, no masses, no rebound or guarding. BACK: Back is symmetrical on inspection and there is no deformity, no midline tenderness, no CVA tenderness. SKIN: no rashes and no bruising UPPER EXTREMITIES: upper extremities are grossly normal. LOWER EXTREMITIES: No pitting edema. NEURO EXAM: Normal sensorium, cranial nerves II-XII intact, normal speech, no weakness of arms, no weakness of legs. No drift. Finger to nose intact. Gross sensation intact. Course ED COURSE: Vital signs were reviewed and showed hypertension and tachycardia. The patients medical record was reviewed The above diagnostic studies were performed and reviewed. ED treatments and interventions as stated above. 1208: The patient was evaluated in room B10. A complete history and physical examination was performed. 1355: I spoke to Dr. Zhu [facility] Hospitalist about the patient's case. He is going to accept the patient for further evaluation. 1402: Upon reevaluation, the patient is resting in bed. I discussed my findings with the patient and he understands and agrees with the treatment plan. Based on the patients age, coexisting illnesses, exam and lab findings the decision to treat as an inpatient was made. The patient remained stable while under my care. The patient will be evaluated for further management. Consultations Consultation #1: I spoke to Dr. Zhu [facility] Hospitalist about the patient's case. He is going to accept the patient for further evaluation. Time: 13:55 Administered Medications Discontinued Medications Sodium Chloride (Nss 1000ml) 1,000 mls @ 999 mls/hr IV .Q1H1M ONE Stop: 01/01/19 13:12 Last Infusion: 01/01/19 13:44 Dose: 0 mls/hr Documented by: [id number] Admin: 01/01/19 12:35 Dose: 999 mls/hr Documented by: [id number] Medical Decision Making Differential Diagnosis Differential Diagnosis includes but is not limited to dehydration, stroke, anemia, hypoglycemia, hyponatremia, hypernatremia, urinary tract infection, pneumonia, bronchitis, sepsis, gastroenteritis, additional abdominal pathology, metabolic abnormalities and infections. Medical Records Attestation: I reviewed the patient's medical records. Home Medications Current Medication List: was personally reviewed by me Laboratory Data Attestation: I reviewed the patient's lab results. Result diagrams: 01/01/19 12:37 01/01/19 12:37 Lab Results 01/01/19 01/01/19 01/01/19 Range/Units 12:37 12:37 13:40 WBC 5.70 (4.8-10.8) K/uL RBC 4.68 L (4.7-6.1) M/uL Hgb 13.9 L (14.0-18.0) g/dL Hct 40.7 L (42-52) % MCV 87.0 (80-100) fL MCH 29.7 (25-34) pg MCHC 34.2 (32-36) g/dL RDW Std Deviation 44.7 (36.4-46.3) fL RDW Coeff of Heena 14.2 (11.5-14.5) % Plt Count 237 (130-400) K/uL MPV 9.5 (7.4-10.4) fL Immature Gran % (Auto) 0.2 % Neut % (Auto) 64.4 % Lymph % (Auto) 23.5 % Lyon % (Auto) 10.5 % Eos % (Auto) 0.9 % Baso % (Auto) 0.5 % Immature Gran # (Auto) 0.01 (0.00-0.02) K/uL Neut # (Auto) 3.67 (1.4-6.5) K/uL Lymph # (Auto) 1.34 (1.2-3.4) K/uL Lyon # (Auto) 0.60 H (0.11-0.59) K/uL Eos # (Auto) 0.05 (0-0.5) K/uL Baso # (Auto) 0.03 (0-0.2) K/uL Sodium 137 (136-145) mmol/L Potassium 4.0 (3.5-5.1) mmol/L Chloride 104 (98-107) mmol/L Carbon Dioxide 25 (21-32) mmol/L Anion Gap 8.0 (3-11) BUN 17 (7-18) mg/dl Creatinine 1.16 (0.6-1.4) mg/dl Est Cr Clr Drug Dosing 57.4 ml/min Est GFR ( Amer) 72.0 Est GFR (Non-Af Amer) 62.1 BUN/Creatinine Ratio 15.1 (10-20) Glucose 178 H (70-99) mg/dl Calcium 8.9 (8.5-10.1) mg/dl Total Bilirubin 0.5 (0.2-1) mg/dl AST 22 (15-37) U/L ALT 24 (12-78) U/L Alkaline Phosphatase 103 (45-117) U/L Total Protein 7.5 (6.4-8.2) gm/dl Albumin 3.5 (3.4-5.0) gm/dl Globulin 4.0 (2.5-4.0) gm/dl Albumin/Globulin Ratio 0.9 (0.9-2) Lipase 354 (73-393) U/L Urine Color Yellow Urine Appearance Clear (Clear) Urine pH 5.0 (4.5-7.5) Ur Specific Monon 1.033 H (1.000-1.030) Urine Protein Negative (Negative) Urine Glucose (UA) 3+ H (Negative) Urine Ketones Trace H (Negative) Urine Blood Trace H (Negative) Urine Nitrite Negative (Negative) Urine Bilirubin Negative (Negative) Urine Urobilinogen Negative (Negative) Ur Leukocyte Esterase Negative (Negative) Urine WBC (Auto) 10-30 H (0-5) /hpf Urine RBC (Auto) 0-4 (0-4) /hpf U Hyaline Cast (Auto) 0 (0-5) /lpf U Epithel Cells (Auto) 10-20 H (0-5) /lpf Urine Bacteria (Auto) Negative (Negative) Imaging Data Radiologist's Impression: Radiology results as stated below per my review and the radiologist's interpretation: XR chest 1V portable HISTORY: Stroke symptoms. COMPARISON: Chest 04/11/2017. FINDINGS: No pneumothorax. No pleural effusions. Mild elevation right hemidiaphragm. This is slightly progressed. The heart is normal in size. Bibasilar linear densities are nonspecific but favor subsegmental atelectasis. The upper lung zones remain clear. No evidence for pulmonary edema. IMPRESSION: 1. A few small bibasilar linear densities. These are nonspecific but favor subsegmental atelectasis. 2. Elevation of the right hemidiaphragm which has slightly progressed. Electronically signed by: Jersey Venegas M.D. 01/01/2019 12:[address] head/brain wo con CLINICAL HISTORY: 73 years-old Male with cva. Acute strokelike symptoms with left-sided numbness and tingling TECHNIQUE: Multiple axial CT images of the head were obtained without contrast. A dose lowering technique was utilized adhering to the principles of ALARA. CT DOSE: 537.48 mGy.cm COMPARISON: None. FINDINGS: No acute intracranial hemorrhage, midline shift, intracranial mass, hydrocephalus, territorial ischemia or abnormal extra-axial collection. Cerebral vascular calcifications are noted. Subcentimeter hypodense focus of the right thalamus measuring 6 mm. Minimal patchy white matter hypodensities suggest manufacturing cost estimator nannette microvascular ischemic disease. The calvarium is intact. The paranasal sinuses, mastoid air cells, and middle ear cavities are clear. IMPRESSION: 1. No acute intracranial hemorrhage, midline shift or acute territorial infarct. 2. Subcentimeter focus of decreased attenuation of the right thalamus suggests age-indeterminate lacunar infarction. Correlate clinically. The above report was generated using voice recognition software. It may contain grammatical, syntax or spelling errors. Electronically signed by: Liang Sanchez M.D. 01/01/2019 1:29 PM Blood Pressure Blood Pressure Findings: Elevated blood pressure Blood Pressure Disposition: further management by hospitalist JESSICA Narrative Patient is a 73-year-old male with past medical history of Crohn's presents the ER for paresthesias of the left upper extremity left face and left tongue. His neurologic exam is completely intact. IV was established blood work was obtained. Labs show no significant leukocytosis or anemia. BMP along with LFTs bilirubin and lipase is unremarkable. UA was negative. CT of the head shows a right pelvic infarct which is consistent with the symptoms. Patient was given aspirin. IV fluids. Updated bedside. [facility]re[facility]. Patient was discussed with the hospitalist admitted for CVA which occurred 6 days ago. Impression & Plan Stroke, Paresthesia Discharge Plan Visit Data Chief Complaint: Illness ED Provider: Nick Valladares Discharge Problem: Stroke, Paresthesia Patient Disposition: Being Evaluated by Hospitalist Forms Stand Alone Forms: My [facility] Prescriptions Prescriptions: No Action cyanocobalamin (vitamin B-12) [Vitamin B-12] 1,000 mcg Tablet Extended Release 1,000 mcg PO DAILY@1200 RF: 0 glipizide 10 mg Tablet 10 mg PO BIDM RF: 0 metformin 850 mg Tablet 850 mg PO TIDM RF: 0 ibuprofen [Advil] 200 mg Tablet 200 mg PO Q6H PRN (Reason: Pain) RF: 0 epinephrine [EpiPen] 0.3 mg/0.3 mL Auto-Injector 0.3 mg IM UD PRN (Reason: Anaphylaxis) RF: 0 lisinopril-hydrochlorothiazide 10-12.5 mg Tablet 1 tab PO QAM RF: 0 paroxetine HCl [Paxil] 40 mg Tablet 20 mg PO QAM RF: 0 Symbicort 160-4.5 mcg/actuation Hfa Aerosol Inhaler 2 puff INHALATION BID RF: 0 cholecalciferol (vitamin D3) [Vitamin D3] 2,000 unit Tablet 2,000 unit PO DAILY@1200 RF: 0 linagliptin 5 mg Tablet 5 mg PO HS RF: 0 Centrum Silver Men 300-600-300 mcg Tablet 1 tab PO QAM RF: 0 Referrals Referrals: Ana Paula Mendez PA-C [Primary Care Provider] - Discharge Problem: Stroke Qualifiers: CVA mechanism: unspecified Qualified Code(s): I63.9 - Cerebral infarction, unspecified The scribe's documentation has been prepared under my direction and personally reviewed by me in its entirety. I confirm that the note above accurately reflects all work, treatment, procedures, and medical decision making performed by me.
--- NOTE | 2019-01-01 14:58 | History & Physical Report ---
Date of Service January 01, 2019 Assessment & Plan (1) Right thalamic infarction: Admit the patient to telemetry floor. Follow stroke protocol. Check MRI of the brain, check MRA of the head and neck. Patient started on aspirin and statins. Consult neurology. Neurochecks per protocol. Check dysphagia screening. Consult PT OT. Consult speech therapy. Check lipid profile. Check HbA1c. Check echocardiogram. Present on Admission?: Yes (2) Stroke: Stroke work-up in progress Present on Admission?: Yes (3) Paresthesia: Present on Admission?: Yes (4) Crohn's disease: Present on Admission?: No (5) Hypertension: Continue with home medications. Monitor blood pressure closely. Present on Admission?: Yes (6) Diabetes: Add sliding scale insulin per protocol. Check HbA1c Present on Admission?: Yes History of Present Illness Chief Complaint: Tingling numbness of left face and left hand Primary Care Provider: Ana Paula Mendez PA-C The patient is 73 years old male who presented to the ER today with chief complaints of tingling /numbness of the left hand and left face. His symptoms started 6 days back last Tuesday at 3 AM when he woke up from sleep. He denies any weakness of any extremity. He also noticed some dribbling of the saliva from left side of the face. No bowel /bladder incontinence. No headache. Today [facility] and referred here to the emergency room. The further work-up done in the ER shows that patient probably has infarct according to CAT scan. He will be admitted for further stroke work-up. Allergies Allergy/AdvReac Type Severity Reaction Status Date / Time bee venom protein (honey bee) Allergy Intermediate HIVES Unverified 01/01/19 13:26 No Known Drug Allergies Allergy Unknown . Verified 01/01/19 13:26 Home Medications Home Medications Medication Instructions Recorded Confirmed Type budesonide-formoterol [Symbicort] 2 puff INHALATION BID 01/01/19 01/01/19 History cholecalciferol (vitamin D3) 2,000 unit PO DAILY@1200 01/01/19 01/01/19 History [Vitamin D3] cyanocobalamin (vitamin B-12) 1,000 mcg PO DAILY@1200 01/01/19 01/01/19 History [Vitamin B-12] epinephrine [EpiPen] 0.3 mg IM UD PRN 01/01/19 01/01/19 History glipizide 10 mg PO BIDM 01/01/19 01/01/19 History ibuprofen [Advil] 200 mg PO Q6H PRN 01/01/19 01/01/19 History linagliptin 5 mg PO HS 01/01/19 01/01/19 History lisinopril-hydrochlorothiazide 1 tab PO QAM 01/01/19 01/01/19 History metformin 850 mg PO TIDM 01/01/19 01/01/19 History kzipauub-vyt-ES-lycopen-lutein 1 tab PO QAM 01/01/19 01/01/19 History [Centrum Silver Men] paroxetine HCl [Paxil] 20 mg PO QAM 01/01/19 01/01/19 History Past Med/Surg History Medical History Crohn's disease Hypertension Acute respiratory failure with hypoxia Diarrhea (Acute) Hyperglycemia (Acute) Vomiting (Acute) Family History Other Family history non-contributory Social History Preferred Language: Yi Communication Ability: Effective Beliefs That Will Affect Care: None Current Living Situation: Spouse Other Information That Helps Us Care for You: No Feels Safe at Home: Yes Safety Concerns: Feels Safe At This Time Smoking Status: Former smoker Hx Alcohol Use: No Hx Substance Use: No Review of Systems Review of Systems: All systems reviewed & are unremarkable except as noted in HPI & below Neurologic: + loss of sensation, + numbness and + paresthesia Physical Exam Physical Exam: GENERAL : No acute distress EYES: No icterus, gaze conjugate NOSE: No evidence of epistaxis MOUTH: No lesions or candidiasis, mucosa moist NECK: Supple LUNGS: CTA B/L, no wheezes, rales or rhonchi HEART: Regular, rate controlled ABDOMEN: Soft, NT, ND, BS Present EXTREMITIES: No LE edema, pedal pulses intact NEURO: A&OX3 Cranial nerves intact. Motor power normal. No cerebellar signs Results & Data Vital Signs (Past 12 Hours) Vital Signs Temp Pulse Pulse Resp BP BP Pulse Ox 01/01/19 14:00 106 H 18 145/88 H 95 10/28/19 13:44 102 H 17 158/90 H 98 01/01/19 12:13 95 01/01/19 11:27 98.4 F 108 H 17 142/83 H 95 Laboratory Results 01/01/19 12:37 01/01/19 12:[address] head/brain wo con CLINICAL HISTORY: 73 years-old Male with cva. Acute strokelike symptoms with left-sided numbness and tingling TECHNIQUE: Multiple axial CT images of the head were obtained without contrast. A dose lowering technique was utilized adhering to the principles of ALARA. CT DOSE: 537.48 mGy.cm COMPARISON: None. FINDINGS: No acute intracranial hemorrhage, midline shift, intracranial mass, hydrocephalus, territorial ischemia or abnormal extra-axial collection. Cerebral vascular calcifications are noted. Subcentimeter hypodense focus of the right thalamus measuring 6 mm. Minimal patchy white matter hypodensities suggest chronic microvascular ischemic disease. The calvarium is intact. The paranasal sinuses, mastoid air cells, and middle ear cavities are clear. IMPRESSION: 1. No acute intracranial hemorrhage, midline shift or acute territorial infarct. 2. Subcentimeter focus of decreased attenuation of the right thalamus suggests age-indeterminate lacunar infarction. Correlate clinically. Code Status & VTE Plan Code Status Full code VTE Prophylaxis Plan VTE Prophylaxis will be ordered: Yes PG Care Time/CCT Total # of Minutes Spent Total Time Spent with Patient: Total time spent is greater than 50% in coordination of care (as documented) at patient's floor/unit and/or counseling patient: (1) Stroke CVA mechanism: unspecified Qualified Code(s): I63.9 - Cerebral infarction, unspecified
[2019-01-01] MEDS ORDERED: ONDANSETRON INJ 2 MG/ML 2 ML VIAL IV PRN (15:48)
[2019-01-01] MEDS ORDERED: PHARMACIST DISCHARGE MED REC CONSULT PRN (15:48)
[2019-01-01] MEDS ORDERED: ACETAMINOPHEN 325 MG TAB PO PRN (15:48)
[2019-01-01] MEDS ORDERED: ALUMINUM/MAGNESIUM SUSP 30 ML UDC PO PRN (15:48)
[2019-01-01] MEDS ORDERED: glipiZIDE 5 MG TAB PO SCH (17:00)
--- NOTE | 2019-01-01 17:07 | Magnetic Resonance Report ---
MR angio head wo con HISTORY: Stroke cva TECHNIQUE: 3-D [id number] MRA of the brain was performed without contrast. COMPARISON STUDY: None. FINDINGS: The intracranial vasculature is unremarkable. Left left vertebral artery is dominant with a basilar unremarkable. Right vertebral artery is either occluded or shows a critical stenosis. IMPRESSION: 1. 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 2. Remainder the study is unremarkable. The above report was generated using voice recognition software. It may contain grammatical, syntax or spelling errors. Electronically signed by: Bernardino Santiago M.D. 01/01/2019 5:06 PM
[2019-01-01] MEDS ORDERED: GADOBUTROL 65ML VIAL IV PRN (17:37)
--- NOTE | 2019-01-01 17:46 | Magnetic Resonance Report ---
MR ANGIOGRAPHY THE NECK WITHOUT AND WITH CONTRAST. HISTORY: Stroke. Left hand numbness. Left facial numbness. Left tongue numbness. TECHNIQUE: Zevx-[id number] and gadolinium-enhanced MRA of the neck was performed both before and after the intravenous administration of contrast. All measurements were calculated based on NASCET criteri a. The patient received 9 cc of intravenous Gadavist. COMPARISON STUDY: None. FINDINGS: Evaluation of the great vessel origins is significantly limited from a technical standpoint . There is no evidence of internal carotid artery stenosis. The left vertebral artery is dominant. Th ere are no findings to indicate a dissection. IMPRESSION: 1. No evidence of internal carotid artery stenosis. No evidence for vertebral artery stenosis. Domina nt left vertebral. 2. Evaluation of the great vessel origins is significantly limited due to technical factors. If furth er evaluation is desired, CT angiography would be recommended as the test of choice in follow-up. Electronically signed by: Braulio Cerda M.D. 01/01/2019 5:45 PM
--- NOTE | 2019-01-01 18:03 | Magnetic Resonance Report ---
MRI OF THE BRAIN WITHOUT AND WITH IV CONTRAST CLINICAL HISTORY: Suspected stroke. Left hand numbness. Left facial numbness. Left tongue numbness. COMPARISON STUDY: Noncontrast head CT dated 01/01/2019 TECHNIQUE: MRI of the brain was performed from the vertex to the skull base utilizing various T1 and T2 weighted sequences. Following the IV administration of 9 mL of Gadavist contrast, additional enhan jorge images were obtained. FINDINGS: Sagittal T1, axial diffusion, proton density and T2 weighted axial, coronal FLAIR, and pre and post a xial T1-weighted images were acquired. These were supplemented with post gadolinium coronal T1 weight ed images. No intra or extra-axial mass lesions are visualized. There is a 6 mm focus of restricted water diffusion involving the right thalamus consistent with a all acute/subacute infarct. There is no evidence of ventricular dilatation. Proton density T2-weighted and FLAIR images reveal scattered foci of increased T2 signal within the w cipriano matter, likely on a small vessel basis. There are no abnormal flow voids. There is no evidence of pathologic enhancement. There is magnetic field inhomogeneity artifact in the region of the left orbit. There is a partially empty sella. IMPRESSION: 1. Small 6 mm focus of restricted water diffusion involving the right thalamus consistent with an acu te/subacute infarct. Electronically signed by: Braulio Cerda M.D. 01/01/2019 6:02 PM
[2019-01-01] MEDS: ATORVASTATIN 40 MG TAB PO SCH (18:41)
[2019-01-01] MEDS: INSULIN ASPART 100 UNITS/ML 3 ML PEN SC SCH ×2 (18:42→21:03)
[2019-01-01] MEDS: BUDESONIDE/FORMOTEROL FUMARATE 160/4.5 60 PUFFS/INHALER INH SCH (21:04)
[2019-01-01] MEDS: HEPARIN SOD 5,000 UNIT/0.5 ML VIAL SQ SCH (21:05)
[2019-01-02] MEDS: HEPARIN SOD 5,000 UNIT/0.5 ML VIAL SQ SCH (05:22)
[2019-01-02 06:10] LABS: Estimated Average Glucose 197 mg/dl; Hemoglobin A1C 8.5 % (4.5-5.6)
[2019-01-02 07:17] LABS: Basophils # (auto) 0.02 K/uL (0-0.2); Basophils % (auto) 0.4 %; Eosinophils # (auto) 0.07 K/uL (0-0.5); Eosinophils % (auto) 1.4 %; Hematocrit (blood only) 39.1 % (42-52); Hemoglobin 13.5 g/dL (14.0-18.0); Immature Granulocytes # (auto) 0.02 K/uL (0.00-0.02); Immature Granulocytes % (auto) 0.4 %; Lymphocytes # (auto) 1.61 K/uL (1.2-3.4); Lymphocytes % (auto) 31.6 %; Mean Corpuscular Hemoglobin 29.4 pg (25-34); Mean Corpuscular Hgb Conc 34.5 g/dL (32-36); Mean Corpuscular Volume 85.2 fL (80-100); Monocytes # (auto) 0.53 K/uL (0.11-0.59); Monocytes % (auto) 10.4 %; Neutrophils # (auto) 2.84 K/uL (1.4-6.5); Neutrophils % (auto) 55.8 %; Platelet Count 218 K/uL (130-400); RDW Coefficient of Variation 13.9 % (11.5-14.5); RDW Standard Deviation 43.3 fL (36.4-46.3); Red Blood Count 4.59 M/uL (4.7-6.1); White Blood Count 5.09 K/uL (4.8-10.8)
[2019-01-02 07:50] LABS: Calcium 8.4 mg/dl (8.5-10.1); Creatinine Clr Calc Pharmacy 64.3 ml/min; Est GFR (African American) 86.2; Est GFR (Non-African American) 74.3; Potassium 3.9 mmol/L (3.5-5.1)
[2019-01-02] MEDS ORDERED: PHARMACIST DISCHARGE MED REC CONSULT ONE (08:15)
[2019-01-02] MEDS: INSULIN ASPART 100 UNITS/ML 3 ML PEN SC SCH ×2 (08:18→12:22)
--- NOTE | 2019-01-02 08:55 | Family Medicine Progress Note ---
Date of Service January 02, 2019 Results & Data Vital Signs (Past 12 Hours) Vital Signs Temp Pulse Resp BP Pulse Ox 01/02/19 07:33 36.6 C 98 H 138/75 94 01/02/19 02:44 36.6 C 92 H 19 114/73 93 01/01/19 23:24 36.1 C L 80 19 108/64 94 PG Care Time/CCT Total # of Minutes Spent Total Time Spent with Patient: Total time spent is greater than 50% in coordination of care (as documented) at patient's floor/unit and/or counseling patient:
[2019-01-02] MEDS ORDERED: MULTIVITAMIN TAB PO SCH (09:00)
[2019-01-02] MEDS ORDERED: PARoxetine HCl 20 MG TAB PO SCH (09:00)
[2019-01-02] MEDS ORDERED: ASPIRIN 81 MG ECTAB PO SCH (09:00)
[2019-01-02] MEDS ORDERED: LISINOPRIL/HCTZ 10/12.5MG TAB PO SCH (09:00)
[2019-01-02] MEDS: ATORVASTATIN 40 MG TAB PO SCH (10:14)
[2019-01-02] MEDS: BUDESONIDE/FORMOTEROL FUMARATE 160/4.5 60 PUFFS/INHALER INH SCH (10:17)
--- NOTE | 2019-01-02 10:53 | Neurology Consultation ---
Date of Consultation January 02, 2019 Assessment & Plan (1) Acute CVA (cerebrovascular accident): (2) Numbness and tingling of left side of face: (3) Numbness and tingling in left hand: (4) Vertebral artery stenosis/occlusion: (5) Idiopathic polyneuropathy: Patient had the onset of left face and hand numbness 1 week ago which has persisted. He has evidence of a small right thalamic stroke. I suspect small vessel ischemic disease from diabetes, hypertension, and/or dyslipidemia. The patient has other small vessel ischemic disease noted on MRI of a mild nature. Echocardiogram is pending but there is no evidence of embolic phenomenon otherwise. He has a right vertebral occlusion or high stenosis which is likely old. There is no evidence of dissection (even though he had some nonspecific neck injury about a month ago with a fall. Risk factors for stroke include hypertension, diabetes, and dyslipidemia. He is a former cigarette smoker. Patient may have early polyneuropathy from diabetes. Recommendations: 1. Since patient was not on an antiplatelet medication prior to admission I would continue with 81 milligram aspirin tablet daily. There is no indication for anticoagulation. 2. Control blood pressure aiming for a mean arterial pressure of 95-100. 3. Control glucose better trying for any hemoglobin A1c of less than 7. 4. The patient would be a high dose statin candidate. 5. Awaiting echocardiogram results. 6. Increase activity as able and I have no further neurologic recommendations to make at this time. I could follow-up in 3-4 weeks as an outpatient if desired. Overall, I spent a total of 110 minutes with this case including review of salome rds, review of MRI films, direct evaluation the patient at bedside, and discussion the case with patient at bedside, nursing at bedside, and Dr. Conrad, including differential diagnosis and treatment options. History of Present Illness Reason for Consultation: Patient is a 73-year-old, who I was asked to see the request of Dr. Conrad, for neurologic consultation regarding stroke Requesting Physician: Dr. Conrad Attending Physician: Nick Conrad, DO History of Present Illness The patient has a history of diabetes and hypertension for years. He is currently on medication treatment for this but his glucose is not adequately controlled. He has a history of Crohn's disease followed by GI and COPD. He quit cigarette smoking in his early 40s. About a month ago the patient fell off a trailer continued his right neck and right ribs. He has recovered from this some. On December 16 he received a flu shot in his left deltoid. December 26 he awoke in the morning with left face, tongue, and hand numbness. There was no weakness or pain in his balance was good with no vision problems, speech or mentation problems. His right side was asymptomatic. This persisted for days any ended up seeing the [facility] on January 01. They sent him immediately to the emergency room. He arrived at the emergency room on January 01 at 1127 with a temperature 36.9, pulse 108, respiratory rate 17, blood pressure 142/83, and O2 saturation 95 percent. He had the left face and hand numbness but had no focal neurologic signs, meningeal signs, or encephalopathy. Patient had some slight anemia on CBC and a glucose of 178 with an unremarkable Chem profile otherwise. Hemoglobin A1c was 8.5. Triglycerides were 309 and total cholesterol 164. MR angiography of the head and neck were unremarkable except for severe stenosis versus occlusion of the right vertebral artery. There was excellent collateral flow. MRI of the brain showed a small 6 millimeter subacute right thalamic CVA. There was mild old small vessel ischemia otherwise. I reviewed these films. Today the patient feels that his left hand has less numbness in his just a little bit in his finger tips but his left face and tongue are about the same. Nursing reports no new events overnight. Allergies Allergy/AdvReac Type Severity Reaction Status Date / Time bee venom protein (honey bee) Allergy Intermediate HIVES Unverified 01/01/19 13:26 No Known Drug Allergies Allergy Unknown . Verified 01/01/19 13:26 Home Medications Home Medications Medication Instructions Recorded Confirmed Type budesonide-formoterol [Symbicort] 2 puff INHALATION BID 01/01/19 01/01/19 History cholecalciferol (vitamin D3) 2,000 unit PO DAILY@1200 01/01/19 01/01/19 History [Vitamin D3] cyanocobalamin (vitamin B-12) 1,000 mcg PO DAILY@1200 01/01/19 01/01/19 History [Vitamin B-12] epinephrine [EpiPen] 0.3 mg IM UD PRN 01/01/19 01/01/19 History glipizide 10 mg PO BIDM 01/01/19 01/01/19 History ibuprofen [Advil] 200 mg PO Q6H PRN 01/01/19 01/01/19 History linagliptin 5 mg PO HS 01/01/19 01/01/19 History lisinopril-hydrochlorothiazide 1 tab PO QAM 01/01/19 01/01/19 History metformin 850 mg PO TIDM 01/01/19 01/01/19 History hphqriwh-hym-IL-lycopen-lutein 1 tab PO QAM 01/01/19 01/01/19 History [Centrum Silver Men] paroxetine HCl [Paxil] 20 mg PO QAM 01/01/19 01/01/19 History Patient History Medical History Crohn's disease Hypertension Acute respiratory failure with hypoxia Diarrhea (Acute) Hyperglycemia (Acute) Vomiting (Acute) Surgical History S/P appendectomy S/P inguinal hernia repair Family History Mother , age 88 of dementia Alzheimer disease Dementia Father , age 86 of heart issues Heart disease Diabetes Other Family history non-contributory Social History Preferred Language: Citizen Of [place] Communication Ability: Effective Beliefs That Will Affect Care: None Current Living Situation: Spouse current occupational status: retired 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, exposed to Agent [place], from [age] Feels Safe at Home: Yes Smoking Status: Former smoker Age Quit Using Tobacco: 40 ; Cigarettes Per Day: 20-30 ; Do You Dip or Chew Tobacco: No ; Number of Years Since Quit: 33 ; Hx Alcohol Use: No Hx Substance Use: No Review of Systems Constitutional: no fever, no fatigue and no weakness Eyes: no diplopia, no eye pain and no worsening vision Ear, Nose, Mouth, Throat: no ear pain, no tinnitus, no hearing loss, no dizziness, no snoring, no hoarseness and no dysphagia Respiratory: no cough and no dyspnea Cardiovascular: no chest pain, no palpitations and no lightheadedness Gastrointestinal: no abdominal pain, no nausea and no vomiting Genitourinary: no dysuria and no urinary incontinence Musculoskeletal: + neck pain; no back pain, no radicular pain, no joint pain and no myalgia Integumentary: no rash and no lesions Neurologic: + numbness; no gait abnormality, no localized weakness, no generalized weakness, no tingling, no tremor(s), no abnormal movements, no headache(s), no abnormal speech, no confusion and no memory loss Psychiatric: no depression, no irritability, no anxiety, no difficulty concentrating, no confusion and no hallucinations Endocrine: no fatigue and no flushing Hematologic / Lymphatic: no easy bleeding and no easy bruising Allergy / Immunological: no urticaria and no problem reported Physical Exam Physical Exam: The patient is right-handed. The patient is awake, alert, and attentive. Speech is normal without any aphasia or dysarthria. She can name objects, repeat phrases, and has normal spontaneous speech. Mentation and thought processes are intact, with orientation to person, place and time, and normal fund of knowledge. Attention and concentration are normal. Mood and affect are normal and appropriate. General appearance and grooming are normal. Short and long-term memory are intact. The discs are sharp with positive venous pulsations bilaterally. There are no exudates, hemorrhages, or blood vessel changes seen. Pupils are 4 mm bilaterally and reactive to light. Extraocular eye muscles are intact without nystagmus. Visual acuity and visual rollins seem normal grossly to confrontation. There is numbness to touch in the left V2 and V3 distributions compared to the right which is normal. V1 is spared. Corneal reflexes are positive bilaterally. Facial strength and symmetry was normal bilaterally. Hearing seems normal to whisper and finger rub bilaterally. Palate moves well without asymmetry. There is normal sternocleidomastoid and trapezius (shoulder shrug) strength bilaterally. Tongue is midline with good strength bilaterally. Neck has a full range of motion without discomfort. There are no cervical bruits bilaterally. There are no cranial or ocular bruits. Heart is without murmur. There is a regular rhythm and rate. Cervical, thoracic, and lumbar spine are nontender to palpation. Gait is narrow based, with good arm swing, turns, and stance. Stance is good eyes open . With outstretched arms there is no drift. There are no resting, postural, or action tremors. There is no ataxia with finger to nose testing. There is good facility in the hands. No other abnormal involuntary movements are noted. Motor strength is 5/5 diffusely in the arms bilaterally including deltoids, bi ceps, triceps, brachioradialis, wrist flexors and extensors, jewel bearing facer, and intrinsic hand muscles. Motor strength is 5/5 diffusely in the legs bilaterally including hip flexors, quadriceps, hamstrings, gastrocnemius, tibialis anterior, tibialis posterior, and Peroneii muscles. Toe extensors are normal and there is good bulk in the extensor digitorum brevis muscles bilaterally. The limbs have good tone without rigidity or spasticity. There is no atrophy noted in the muscles. Muscle bulk is normal, there is no tenderness to palpation, no myotonia to percussion, and no fasciculations seen. Sensory examination is intact to touch and pin throughout all 4 limbs diffusely, except for some decreased sensation in the finger tips on the left hand. Vibratory and position sense testing is reasonable bilaterally as well. Reflexes are 1/4 in the biceps, triceps, brachioradialis, and quadriceps tendons bilaterally. Achilles tendon reflexes are absent bilaterally. There is no clonus bilaterally. Toes are downgoing with plantar stimulation bilaterally. Peripheral pulses are present and of normal quality distally in all 4 limbs. There is no peripheral edema noted in the limbs. Results & Data Vital Signs (Past 12 Hours) Vital Signs Temp Pulse Resp BP Pulse Ox 01/02/19 07:33 36.6 C 98 H 138/75 94 01/02/19 02:44 36.6 C 92 H 19 114/73 93 01/01/19 23:24 36.1 C L 80 19 108/64 94 Diagnostic Findings MRI OF THE BRAIN WITHOUT AND WITH IV CONTRAST CLINICAL HISTORY: Suspected stroke. Left hand numbness. Left facial numbness. Left tongue numbness. COMPARISON STUDY: Noncontrast head CT dated 01/01/2019 TECHNIQUE: MRI of the brain was performed from the vertex to the skull base utilizing various T1 and T2 weighted sequences. Following the IV administration of 9 mL of Gadavist contrast, additional enhanced images were obtained. FINDINGS: Sagittal T1, axial diffusion, proton density and T2 weighted axial, coronal FLAIR, and pre and post axial T1-weighted images were acquired. These were supplemented with post gadolinium coronal T1 weighted images. No intra or extra-axial mass lesions are visualized. There is a 6 mm focus of restricted water diffusion involving the right thalamus consistent with a small acute/subacute infarct. There is no evidence of ventricular dilatation. Proton density T2-weighted and FLAIR images reveal scattered foci of increased T2 signal within the white matter, likely on a small vessel basis. There are no abnormal flow voids. There is no evidence of pathologic enhancement. There is magnetic field inhomogeneity artifact in the region of the left orbit. There is a partially empty sella. IMPRESSION: 1. Small 6 mm focus of restricted water diffusion involving the right thalamus consistent with an acute/subacute infarct. Electronically signed by: Braulio Cerda M.D. 01/01/2019 6:02 PM PG Care Time/CCT Total # of Minutes Spent Total Time Spent with Patient: Total time spent is greater than 50% in coordination of care (as documented) at patient's floor/unit and/or counseling patient:
[2019-01-02] MEDS ORDERED: CHOLECALCIFEROL 1,000 UNITS TAB PO SCH (12:00)
[2019-01-02] MEDS ORDERED: CYANOCOBALAMIN 500 MCG TABLET (VITAMIN B-12) PO SCH (12:00)
[2019-01-02] MEDS ORDERED: STROKE PATIENT DISCHARGE STA (12:21)
--- NOTE | 2019-01-02 13:17 | Pharmacy Report ---
Pharmacist Stroke Counseling - Date of Service January 02, 2019 - Scope: Pharmacy has been consulted to provide medication discharge counseling for this patient admitted with ischemic stroke as per the Pharmacist Discharge Counseling for Stroke Patients Protocol. - Medications on Discharge: Home Medications Medication Instructions Recorded Confirmed Centrum Silver Men 1 tab PO QAM 01/01/19 01/01/19 Symbicort 2 puff INHALATION BID 01/01/19 01/01/19 cholecalciferol (vitamin D3) 2,000 unit PO DAILY@1200 01/01/19 01/01/19 Vitamin D3 cyanocobalamin (vitamin B-12) 1,000 mcg PO DAILY@1200 01/01/19 01/01/19 [Vitamin B-12] epinephrine [EpiPen] 0.3 mg IM UD PRN 01/01/19 01/01/19 glipizide 10 mg PO BIDM 01/01/19 01/01/19 linagliptin 5 mg PO HS 01/01/19 01/01/19 lisinopril-hydrochlorothiazide 1 tab PO QAM 01/01/19 01/01/19 metformin 850 mg PO TIDM 01/01/19 01/01/19 paroxetine HCl [Paxil] 20 mg PO QAM 01/01/19 01/01/19 New Rx's Medication Instructions Recorded aspirin [Ecotrin Low Strength] 81 mg PO QAM 30 Days #30 tab 01/02/19 atorvastatin 40 mg PO QAM 30 Days #30 tab 01/02/19 - Action: The above medications, specifically ones for stroke treatment/prophylaxis, have been reviewed in detail with the patient and/or patient event sales representative(s) prior to discharge. This includes indication, common adverse reactions, drug interactions, and medication administration. Medication counseling has been employed using the teach-back method to ensure understanding. - Outcome: Patient was anxious to leave and did not wait for pharmacy personnel to come up and evp general counsel. Patient was discharged prior to counselling. Thank you for allowing pharmacy to be involved in the care of this patient. Please call [phone] or [phone] with any additional questions
--- NOTE | 2019-01-02 19:22 | Discharge Summary ---
Date of Service January 02, 2019 Admission HPI Per Admitting Provider The patient is 73 years old male who presented to the ER today with chief complaints of tingling /numbness of the left hand and left face. His symptoms started 6 days back last Tuesday at 3 AM when he woke up from sleep. He denies any weakness of any extremity. He also noticed some dribbling of the saliva from left side of the face. No bowel /bladder incontinence. No headache. Today he was seen at his [facility] clinic and referred here to the emergency room. The further work-up done in the ER shows that patient probably has infarct according to CAT scan. He will be admitted for further stroke work-up. Principal Diagnosis Thalamic stroke Discharge Exam General awake and alert pleasant no distress. HEENT normocephalic atraumatic mucous membranes moist. breathing unlabored no pallor or icterus. no facial droop. moves all extremities well. see dr vance's detailed neuro exam from about an hour earlier for more detail. skin no rashes no pallor or icterus. Discharge Data Allergies Allergy/AdvReac Type Severity Reaction Status Date / Time bee venom protein (honey bee) Allergy Intermediate HIVES Unverified 01/01/19 13:26 No Known Drug Allergies Allergy Unknown . Verified 01/01/19 13:26 Consultations 01/01/19 13:53 ED Decision to Admit Stat 01/01/19 15:48 Consult Case Management - Discharge Planning Routine 01/02/19 08:08 Consult Neurology Routine 01/02/19 08:09 Consult Neurology Routine Ordered Studies 01/01/19 12:12 CT head/brain wo con Stat 01/01/19 15:48 MR angio head wo con Urgent MR angio neck wo/w con Routine MR brain wo/w con Routine Hospital Course (1) Right thalamic infarction: Doing well, stable for home Appears to have been related to intracranial atherosclerosis Carotids are clear No notable source of cardioembolic problem Added aspirin 81 mg as an antiplatelet, added atorvastatin 40 mg for plaque stabilization (his LDL would be at goal by [place] criteria but non-HDL would not be a goal is additional reason for addition of atorvastatin) -PCP apparently has just recently increased diabetes medications, we will keep his medications the same, but had extensive discussions on the critical importance of lifestyle and control of type 2 diabetes, as well as the fact that right now his uncontrolled diabetes is the main risk factor for progressive atherosclerosis. We discussed simple/starchy/sugary carbohydrates as the main source of spiking his sugar, recommended that he check sugars 1 to 2 hours after he eats and learn to avoid foods that spike a sugar above about 150 or 160. In a fairly brief diet recall, he already identified crackers, potatoes, [place] fries, and ice cream as major possible culprits. (2) Stroke: See above. Secondary risk reduction (3) Paresthesia: (4) Crohn's disease: (5) Hypertension: Continue with home medications. Stable for home (6) Diabetes: See above. Continue home meds, work on lifestyle change. Total Time Total Time Spent Total Time Spent (In Minutes): >30 Discharge Plan Discharge Items Patient Disposition: Home - Self-Care Reason For Visit: CVA Discharge Diagnosis: Thalamic stroke Activity: Resume your previous activity Non-emergency contact: Primary Care Provider and Neurologist Call non-emergency contact if: you have any medication questions and your symptoms worsen Follow-up/Referrals: Jimbo Vance III, MD [Physician] - 03/28/19 10:00 am (Please, follow up at [facility] Neurology Office with Dr. Vance's associate, Gema Stover PA-C, on TuesdayMarch 28 at 10:00 am. *If you need to change this appointment, call the office at [phone]. THE SEEING EYE DOG TEACHER IS GOING TO TRY TO ARRANGE A SOONER APPOINTMENT. IF THIS CAN BE ARRANGED, SHE WILL CONTACT YOU BY PHONE.) Ritesh Chavarria III, MD [Physician] - 01/08/19 3:00 pm (Please, follow up at Dr. Chavarria's office with his associate, Michelle Zayas PA-C, on TuesdayJanuary 08 at 3:00 pm. *If you need to change this appointment, call their office at [phone].) Ana Paula Mendez PA-C [Primary Care Provider] - Diet: Carb Consistent or DM2 Addtl Attending Provider Instructions: Mr. Malik, It was a pleasure to meet and evaluate you for your right thalamic stroke here at [facility]. We believe this stroke was caused by a clot that broke free from an atherosclerotic plaque rupture which caused it to occlude a vessel in your brain. Your symptoms may continue to resolve with time or some of the changes in sensation could be permanent. To prevent future strokes we believe the most important thing will be to get your diabetes under better control. The number one best way to do this will be by changing your lifestyle and trying to consume less simple carbohydrates and starches. This means trying to limit/eliminate potatoes, crackers, and ice cream. We recommend checking blood sugars after eating to see how different meals or snacks affect your blood sugar. We are also starting two medications today Atorvastatin 40 mg this medication helps with cholesterol and can also prevent already existing plaques from rupturing thus preventing subsequent strokes Aspirin 81 mg This medication inhibits platelet aggregation and clot formation We would also like to recommend stopping your advil use and switching to tylenol for any regular pain. While this stroke does not critically impair your daily life, a future stroke or heart attack could so I hope this can serve as an opportunity for you to take better control over your diabetes and stay healthy and strong for years to come. Thank you for allowing me to participate in your care, Sincerely, Willy Aquino MD Pending Studies at Discharge: No Stand-Alone Forms: Medications to Prevent Stroke, My [facility], Smoking Cessation Medications and DC Order Prescriptions: New atorvastatin 40 mg Tablet 40 mg PO QAM 30 Days Qty: 30 RF: 0 aspirin [Ecotrin Low Strength] 81 mg Tablet,Delayed Release (Dr/Ec) 81 mg PO QAM 30 Days Qty: 30 RF: 0 Continued cyanocobalamin (vitamin B-12) [Vitamin B-12] 1,000 mcg Tablet Extended Release 1,000 mcg PO DAILY@1200 RF: 0 glipizide 10 mg Tablet 10 mg PO BIDM RF: 0 metformin 850 mg Tablet 850 mg PO TIDM RF: 0 epinephrine [EpiPen] 0.3 mg/0.3 mL Auto-Injector 0.3 mg IM UD PRN (Reason: Anaphylaxis) RF: 0 lisinopril-hydrochlorothiazide 10-12.5 mg Tablet 1 tab PO QAM RF: 0 paroxetine HCl [Paxil] 40 mg Tablet 20 mg PO QAM RF: 0 Symbicort 160-4.5 mcg/actuation Hfa Aerosol Inhaler 2 puff INHALATION BID RF: 0 cholecalciferol (vitamin D3) [Vitamin D3] 2,000 unit Tablet 2,000 unit PO DAILY@1200 RF: 0 linagliptin 5 mg Tablet 5 mg PO HS RF: 0 Centrum Silver Men 300-600-300 mcg Tablet 1 tab PO QAM RF: 0 Discontinued ibuprofen [Advil] 200 mg Tablet 200 mg PO Q6H PRN (Reason: Pain) RF: 0 Discharge Orders: Discharge Order (Routine); Ordered 01/02/19 Ordered By: Willy Aquino Admission Data Admit Date/Time: 01/01/19 14:44 Attending Provider: Nick Conrad Admit Provider: Johnson Zhu Primary Care Provider: Ana Paula Mendez Other Providers: Johnson Zhu ; Jimbo Vance III Other Interventions: Discharge Summary Assessment (RN) Last Done: 01/02/19 12:28 DC Date/Time DO NOT enter until pt leaves facility: 01/02/19 13:01
== END 2019-01-02 13:01 | disposition home or self-care (01) | DRG 65 ==
LOC: ED 11:21 → 2S 14:44 → SUATTDRO 14:44 → 2S 15:18

== ENCOUNTER 2023-04-28 16:41 | Inpatient (IN) ==
[2023-04-28] MEDS ORDERED: Patient's HEIGHT &/or WEIGHT Needed SCH (16:48)
[2023-04-28 17:32] LABS: Basophils # (auto) 0.09 K/uL (0.00-0.20); Basophils % (auto) 1.2 %; Eosinophils # (auto) 0.12 K/uL (0.00-0.50); Eosinophils % (auto) 1.7 %; Hematocrit (blood only) 42.4 % (42.0-52.0); Hemoglobin 14.6 g/dl (14.0-18.0); Immature Granulocytes # (auto) 0.04 K/uL (0.01-0.20); Immature Granulocytes % (auto) 0.6 %; Lymphocytes # (auto) 1.57 K/uL (1.20-3.40); Lymphocytes % (auto) 21.6 %; Mean Corpuscular Hemoglobin 27.3 pg (25.0-34.0); Mean Corpuscular Hgb Conc 34.4 g/dL (32.0-36.0); Mean Corpuscular Volume 79.4 fL (80.0-100.0); Mean Platelet Volume 10.6 fL (9.4-12.4); Monocytes # (auto) 0.84 K/uL (0.11-0.59); Monocytes % (auto) 11.6 %; Neutrophils % (auto) 63.3 %; Platelet Count 236 K/uL (130-400); RDW Coefficient of Variation 13.3 % (11.5-14.5); RDW Standard Deviation 37.5 fL (36.4-46.3); Red Blood Count 5.34 M/uL (4.70-6.10); White Blood Count 7.26 K/ul (4.8-10.8)
--- NOTE | 2023-04-28 17:38 | CT Scan Report ---
HEAD CT NONCONTRAST CT DOSE: 625.8 mGy.cm HISTORY: ams, hallucination TECHNIQUE: Multiaxial CT images of the head were performed without the use of intravenous contrast. A utomated exposure control was utilized for this study. A dose lowering technique was utilized adheri ng to the principles of ALARA. Comparison: Head CT 12/24/2018. Findings: The paranasal sinuses and mastoid air cells are clear. The calvarium and skull base are int act. The ventricles and sulci are within normal limits. There is no mass, hematoma, midline shift, or acute infarct. 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 Impression: No acute intracranial abnormality. ACT 112: Negative or not required by law. Electronically signed by: Jersey Venegas M.D. 04/28/2023 5:36 PM
[2023-04-28] MEDS: SODIUM CHLORIDE 0.9% 1,000 ML IV ONE (17:45)
[2023-04-28 17:50] LABS: Alanine Aminotransferase 37 U/L (7-52); Albumin Globulin Ratio 1.2 (0.9-2); Albumin Level 4.4 gm/dl (3.4-5.0); Alkaline Phosphatase 131 U/L (34-104); Anion Gap 7 (3-11); Aspartate Aminotransferase 38 U/L (13-39); BUN Creatinine Ratio 14.8 (10-20); Bilirubin,Total 1.5 mg/dl (0.2-1.0); Blood Urea Nitrogen 13 mg/dl (6-23); Calcium 9.5 mg/dl (8.6-10.3); Carbon Dioxide 31 mmol/L (21-32); Chloride 97 mmol/L (98-107); Creatine Kinase 42 U/L (30-223); Est GFR (Non-African American) 82.9 ml/min; Globulin 3.6 gm/dl (2.5-4.0); Glucose 392 mg/dl (70-99(Fasting)); Magnesium 1.9 mg/dl (1.7-2.4); Potassium 4.4 mmol/L (3.5-5.1); Sodium 135 mmol/L (136-145)
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
[2023-04-28 17:52] LABS: Troponin I High Sensitivity 6.2 pg/ml (0-20)
[2023-04-28 18:00] LABS: Thyroid Stimulating Hormone 2.161 uIu/ml (0.300-4.500)
[2023-04-28 18:06] LABS: Prothrombin Time 10.8 Seconds (9.0-12.0)
[2023-04-28] MEDS: INSULIN ASPART PER UNIT CHARGE SC STA (18:46)
[2023-04-28 19:55] LABS: Appearance Urine Clear (Clear); Bacteria Urine Automated Negative (Negative); Bilirubin Urine Negative (Negative); Blood Urine Negative (Negative); Cast Urine Automated 0 /lpf (0-5); Color Urine Yellow; Glucose Urine UA 3+ (Negative); Ketones Urine Trace (Negative); Leukocyte Esterase Urine Negative (Negative); Nitrite Urine Negative (Negative); Protein Urine Trace (Negative); RBC Urine Automated 0-4 /hpf (0-4); Specific Gravity Urine 1.039 (1.000-1.030); Urobilinogen Urine Negative (Negative)
[2023-04-28] MEDS ORDERED: GLUCOSE 40% GEL 15 GM TUBE PO PRN (20:00)
[2023-04-28] MEDS ORDERED: DEXTROSE 50% 50 ML SYRINGE IV PRN (20:00)
[2023-04-28] MEDS ORDERED: GLUCOSE 10 TAB/TUBE PO PRN (20:00)
[2023-04-28] MEDS ORDERED: GLUCAGON FOR INJ 1 MG VIAL SQ PRN (20:00)
[2023-04-28] MEDS ORDERED: CARBOHYDRATES FOR HYPOGLYCEMIA PO PRN (20:00)
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
[2023-04-28] MEDS: INSULIN ASPART PER UNIT CHARGE SC SCH (20:44)
[2023-04-28 21:05] LABS: Amphetamines+Metham, Urine Neg (Neg); Barbiturates, Urine Neg (Neg); Benzodiazepine, Urine Neg (Neg); Cocaine, Urine Neg (Neg); MDMA (Ecstacy), Urine Neg (Neg); Marijuana, Urine Neg (Neg); Methadone, Urine Neg (Neg); Opiate, Urine Neg (Neg); Phencyclidine, Urine Neg (Neg)
[2023-04-28] MEDS: OPTIRAY 320 500ml IV ONE (21:19)
--- NOTE | 2023-04-28 21:46 | CT Scan Report ---
Exam(s): CT CHEST With Contrast IV Amt: 87 cc opti 320 EXAM: CT Chest With Intravenous Contrast CLINICAL HISTORY: Reason for exam: left flank pain / chest pain s/p horse injury. TECHNIQUE: Axial computed tomography images of the chest with intravenous contrast. CTDI is 25.49 mGy and DLP is 822.99 mGy-cm. Automated exposure control was utilized for the study. A dose lowering technique was utilized adhering to the principles of ALARA. CONTRAST: Patient received 87 cc opti 320 of IV contrast COMPARISON: No relevant prior studies available. FINDINGS: Lungs: Unremarkable. No mass. No consolidation. Pleural space: Unremarkable. No pneumothorax. No significant effusion. Heart: Unremarkable. No cardiomegaly. No significant pericardial effusion. No significant coronary artery calcifications. Bones/joints: Degenerative changes of the spine. No acute fracture. No dislocation. Soft tissues: Unremarkable. Vasculature: Atherosclerotic changes of the aorta. No thoracic aortic aneurysm. Lymph nodes: Unremarkable. No enlarged lymph nodes. IMPRESSION: No acute findings in the chest. Electronically signed by: Arias Rojas MD 04/28/23 21:44 PM
--- NOTE | 2023-04-28 21:47 | CT Scan Report ---
Exam(s): CT ABDOMEN + PELVIS With Contrast IV Amt: 87 cc opti 320 EXAM: CT Abdomen and Pelvis With Intravenous Contrast CLINICAL HISTORY: Reason for exam: left flank pain / chest pain s/p horse injury. TECHNIQUE: Axial computed tomography images of the abdomen and pelvis with intravenous contrast. CTDI is 24.33 mGy and DLP is 1308.87 mGy-cm. Automated exposure control was utilized for the study. A dose lowering technique was utilized adhering to the principles of ALARA. CONTRAST: Patient received 87 cc opti 320 of IV contrast COMPARISON: No relevant prior studies available. FINDINGS: Lung bases: Unremarkable. No mass. No consolidation. ABDOMEN: Liver: Hepatic steatosis. Gallbladder and bile ducts: Cholelithiasis. No ductal dilation. Pancreas: Unremarkable. No mass. No ductal dilation. Spleen: Calcified splenic granulomas. Adrenals: Unremarkable. No mass. Kidneys and ureters: Bilateral nonobstructing renal stones (approximately 5). No obstructive uropathy. Stomach and bowel: Moderate fecal retention, correlate for constipation. No obstruction. No mucosal thickening. PELVIS: Appendix: Appendectomy. Bladder: Unremarkable. No mass. Reproductive: Unremarkable as visualized. ABDOMEN and PELVIS: Intraperitoneal space: See below. Bones/joints: RIGHT hip ORIF. No acute fracture. No dislocation. Soft tissues: Unremarkable. Vasculature: Unremarkable. No abdominal aortic aneurysm. 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 IMPRESSION: 1. 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 2. Cholelithiasis. 3. Bilateral nonobstructing renal stones (approximately 5). No obstructive uropathy. 4. Moderate fecal retention, correlate for constipation. 5. RIGHT hip ORIF. 6. Appendectomy. Electronically signed by: Arias Rojas MD 04/28/23 21:46 PM
[2023-04-28] MEDS ORDERED: ALBUTEROL HFA 8 GM INHALER INH PRN (22:04)
[2023-04-28] MEDS ORDERED: ACETAMINOPHEN 325 MG TAB PO PRN (22:04)
[2023-04-29] MEDS: DOCUSATE SODIUM 100 MG CAP PO SCH (00:25)
[2023-04-29] MEDS: FLUTICASONE/VILANTEROL 200/25MCG 14 PUFFS/INHALER INH SCH (00:25)
[2023-04-29] MEDS: ENOXAPARIN INJ 40 MG/0.4 ML SYR SQ SCH (00:25)
[2023-04-29 05:53] LABS: Basophils # (auto) 0.06 K/uL (0.00-0.20); Basophils % (auto) 0.9 %; Eosinophils # (auto) 0.13 K/uL (0.00-0.50); Eosinophils % (auto) 1.8 %; Hematocrit (blood only) 41.3 % (42.0-52.0); Hemoglobin 13.8 g/dl (14.0-18.0); Immature Granulocytes # (auto) 0.04 K/uL (0.01-0.20); Immature Granulocytes % (auto) 0.6 %; Lymphocytes # (auto) 1.31 K/uL (1.20-3.40); Lymphocytes % (auto) 18.6 %; Mean Corpuscular Hgb Conc 33.4 g/dL (32.0-36.0); Mean Corpuscular Volume 80.7 fL (80.0-100.0); Mean Platelet Volume 10.3 fL (9.4-12.4); Monocytes # (auto) 0.72 K/uL (0.11-0.59); Monocytes % (auto) 10.2 %; Neutrophils # (auto) 4.78 K/uL (1.40-6.50); Neutrophils % (auto) 67.9 %; Platelet Count 228 K/uL (130-400); RDW Coefficient of Variation 13.2 % (11.5-14.5); RDW Standard Deviation 37.9 fL (36.4-46.3); Red Blood Count 5.12 M/uL (4.70-6.10); White Blood Count 7.04 K/ul (4.8-10.8)
[2023-04-29 06:15] LABS: Albumin Globulin Ratio 1.2 (0.9-2); Albumin Level 3.9 gm/dl (3.4-5.0); Bilirubin,Total 1.4 mg/dl (0.2-1.0); Calcium 8.6 mg/dl (8.6-10.3); Creatinine Clr Calc Pharmacy 76.1 ml/min; Est GFR (African American) 99.4 ml/min; Est GFR (Non-African American) 85.7 ml/min; Globulin 3.2 gm/dl (2.5-4.0); Magnesium 1.8 mg/dl (1.7-2.4); Potassium 4.1 mmol/L (3.5-5.1); Total Protein 7.1 gm/dl (6.0-8.3)
[2023-04-29 06:29] LABS: Thyroid Stimulating Hormone 1.148 uIu/ml (0.300-4.500)
[2023-04-29] MEDS: PANTOprazole 40 MG TAB PO SCH (06:46)
[2023-04-29 07:18] LABS: Estimated Average Glucose 260 mg/dl; Hemoglobin A1C 10.7 % (4.5-5.6)
--- NOTE | 2023-04-29 07:58 | Electrocardiogram Report ---
Test Reason : Blood Pressure : / mmHG Vent. Rate : 099 BPM Atrial Rate : 099 BPM P-R Int : 152 ms QRS Dur : 084 ms QT Int : 352 ms P-R-T Axes : 044 -35 030 degrees QTc Int : 451 ms Normal sinus rhythm Left axis deviation Abnormal ECG When compared with ECG of 11-APR-2017 09:11, No significant change was found Confirmed by Alexsander Medrano ([id number]) on 04/29/2023 7:58:10 AM Referred By: REFERRED SELF Confirmed By:Antoni Medrano
[2023-04-29] MEDS: PARoxetine HCL 20 MG TAB PO SCH (08:27)
[2023-04-29] MEDS: PRENATAL VITAMIN 1 TAB PO SCH (08:27)
[2023-04-29] MEDS: KETOCONAZOLE 2% CR 15 GM TUBE EXT SCH (08:27)
[2023-04-29] MEDS: FERROUS SULFATE 325 MG TAB PO SCH (08:27)
[2023-04-29] MEDS: LISINOPRIL/HCTZ 10/12.5MG TAB PO SCH (08:27)
[2023-04-29] MEDS: LANTUS PER UNIT CHARGE SC SCH (08:36)
[2023-04-29] MEDS: INSULIN ASPART PER UNIT CHARGE SC SCH (08:37)
[2023-04-29] MEDS ORDERED: NON-FORMULARY MEDICATION (Alogliptin 12.5 mg Tablet) PO SCH (09:00)
[2023-04-29] MEDS: CYANOCOBALAMIN (B-12) 500 MCG TABLET PO SCH (12:04)
[2023-04-29] MEDS: CHOLECALCIFEROL 25 MCG (1000 UNITS) TAB PO SCH (12:04)
--- NOTE | 2023-04-29 13:07 | Hospitalist Progress Note ---
Date of Service April 29, 2023 Assessment & Plan (1) Uncontrolled diabetes mellitus with hyperglycemia: (2) Altered mental status: (3) Dementia: (4) Right thalamic infarction: Plan: Hx of this noted. (5) Vertebral artery stenosis/occlusion: Plan: Hx of this noted (6) Hepatic steatosis: (7) Cholelithiasis: (8) Elevated LFTs: Plan Mr. Degroot is a 77-year-old male who was admitted due to worsening confusion in the setting of a known diagnosis of dementia. AMS in the setting of known dementia -Patient with worsening confusion in the setting of a known diagnosis of dementia -PT and OT consult ordered. Given worsening confusion and patient's having driven his truck with little awareness as to where he had gone, anticipate patient would benefit from discussions as to long-term care facility after discharge. DM-II, uncontrolled -Patient with known history of diabetes which is managed with home insulin and Jardiance. - Tylenol blood sugar on admission was 339, with a hemoglobin A1c of 10.7%. -Patient referring that he will not left his help with insulin administration at home, and when asked to demonstrate how he would use his insulin patient was doing so incorrectly. Therefore, consider the possibility of patient's current level of confusion and dementia difficulty proper glycemic control with home insulin regimen. -Will continue home Lantus and use a correction with sliding scale, as well as home Jardiance, to see if more regular insulin administration would help to control patient's blood sugar better. If no improvement is noted, will manage insulin to achieve better glycemic control. Abnormal LFTs - Hyperbilirubinemia with elevated alkaline phosphatase. Slightly improved on morning labs. -Abdominal pelvic CT showing hepatic steatosis, and cholelithiasis without ductal dilation -Will continue to monitor with morning labs. Left Flank Pain -Patient with left flank pain without certain cause. -Chest CT not showing any fractures. Abdominal pelvic CT showing right hip ORIF, but no acute fractures or dislocations -Will continue with Tylenol as needed for pain management. HTN - Continue home meds. Dispo: PT/OT for eval; anticipate discharge to SNF Diet: HH, DM-2 VTE ppx: SCD FULL CODE Admission and Anticipated Discharge Date Admission Date: April 28, 2023 Supervising Physician Co-Signing Physician Notes Attending attestation Pt seen and examined in concert with Dr. Natarajan. In agreement with the documented findings as noted in the resident documentation with any exceptions or additions as noted here. Pleasantly delirious - unable to appropriately answer basic questions, AAOx1. On examination, S1/S2 nl RRR no MCG. CTAB. Abd NT/ND BS+ve Delrium, likely secondary to dementia - frequent reorientation and monitoring, consider 1:1 over low dose antipsychotic medication for agitation if needed. DMII, insulin-dependent, uncontrolled - basal bolus insulin with adjustment based on ISS use. Monitor glucose levels and A1c Chronic flank pain of uncertain etiology - pain control APAP Else see resident documentation as noted. Subjective Mr. There is a 77-year-old male with past medical history of DM type II and dementia who was admitted after experiencing worsening confusion as per his family. He was evaluated bedside and was found to be alone, awake and alert, and oriented x 1 (person), afebrile, and in no acute distress. Patient states that he is not sure as to why he is in the hospital, and describes having taken his truck and driven to an unknown location and then driving back to his home, but upon questioning by his as to where he had gone he did not remember. Patient demonstrating hyperfixation and tangential speech, but does refer having left flank pain that is intermittent in nature and is stabbing. He cannot rec all any precipitating factors such as problems or falls. However, he does think that it is worsened by certain movements. Denies chest pain, shortness of breath, fevers, chills, or any other systemic symptoms. Review of Systems Review of Systems: As per HPI. Physical Exam Physical Exam: GENERAL: Awake and alert, oriented only to person, afebrile, no acute distress HEAD: Atraumatic and normocephalic EYES: EOM intact THROAT: Normal to visual inspection CARDIO: No rubs murmurs or gallops, regular rate and rhythm RESPIRATORY: Clear to auscultation bilaterally, normal respiratory effort, no respiratory distress GI: Soft, nontender, nondistended EXTREMITIES: No swelling in bilateral lower extremities, no visible deformities SKIN: No rashes Results & Data Results & Data Vital Signs (Past 12 Hours) Vital Signs Temp Pulse Resp BP BP Pulse Ox O2 Del Method 04/29/23 11:57 36.7 C 90 16 113/54 L 96 Room Air 04/29/23 07:53 36.6 C 92 H 17 157/90 H 92 Room Air 04/29/23 04:19 36.6 C 96 H 18 142/81 H 94 Room Air
[2023-04-29] MEDS: metFORMIN HCL ER 500 MG TABCR PO SCH (18:17)
[2023-04-30 04:41] LABS: Basophils # (auto) 0.06 K/uL (0.00-0.20); Eosinophils # (auto) 0.11 K/uL (0.00-0.50); Eosinophils % (auto) 1.8 %; Hematocrit (blood only) 40.3 % (42.0-52.0); Hemoglobin 13.6 g/dl (14.0-18.0); Immature Granulocytes # (auto) 0.04 K/uL (0.01-0.20); Immature Granulocytes % (auto) 0.6 %; Lymphocytes # (auto) 1.25 K/uL (1.20-3.40); Lymphocytes % (auto) 20.1 %; Mean Corpuscular Hgb Conc 33.7 g/dL (32.0-36.0); Mean Platelet Volume 10.2 fL (9.4-12.4); Monocytes # (auto) 0.78 K/uL (0.11-0.59); Monocytes % (auto) 12.6 %; Neutrophils # (auto) 3.97 K/uL (1.40-6.50); Neutrophils % (auto) 63.9 %; Platelet Count 223 K/uL (130-400); RDW Coefficient of Variation 13.2 % (11.5-14.5); RDW Standard Deviation 37.3 fL (36.4-46.3); Red Blood Count 5.04 M/uL (4.70-6.10); White Blood Count 6.21 K/ul (4.8-10.8)
[2023-04-30 04:58] LABS: Calcium 9.1 mg/dl (8.6-10.3); Creatinine Clr Calc Pharmacy 65.6 ml/min; Est GFR (African American) 90.3 ml/min; Est GFR (Non-African American) 77.9 ml/min; Potassium 3.4 mmol/L (3.5-5.1)
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
[2023-04-30] MEDS ORDERED: metFORMIN HCL ER 500 MG TABCR PO SCH (21:00)
--- NOTE | 2023-05-01 10:02 | Hospitalist Progress Note ---
Date of Service May 01, 2023 Assessment & Plan (1) Uncontrolled diabetes mellitus with hyperglycemia: (2) Altered mental status: (3) Dementia: (4) Right thalamic infarction: Plan: Hx of this noted. (5) Vertebral artery stenosis/occlusion: Plan: Hx of this noted (6) Hepatic steatosis: (7) Cholelithiasis: (8) Elevated LFTs: Plan Mr. Degroot is a 77-year-old male who was admitted due to worsening confusion in the setting of a known diagnosis of dementia. AMS in the setting of known dementia -Patient with worsening confusion in the setting of a known diagnosis of dementia. Today exhibiting symptoms of acute confusion/delirium. -After discussion with patient's on the phone, she states that patient has been experiencing worsening episodes of acute confusion spanning anywhere between 6 to 12 months. He is able to perform his ADLs at home, but takes care of of the cooking, finances, and tries to help him with his medications, and although patient has been driving he many occasions does not recall where he drove and how he got back. -Anticipate discharge to long-term care facility. -PT and OT consult ordered. Case management following. DM-II, uncontrolled -Patient with known history of diabetes which is managed with home insulin and Jardiance. - Tylenol blood sugar on admission was 339, with a hemoglobin A1c of 10.7%. -Blood sugars have been more controlled compared to blood sugar at the time of admission. This raises further suspicion that current uncontrolled status of his diabetes may be related to not taking home insulin and antiglycemic medications as advised rather than therapy failure. -Will continue home Lantus and correctional sliding scale, as well as Jardiance. Abnormal LFTs - Hyperbilirubinemia with elevated alkaline phosphatase. Slightly improved on morning labs. -Abdominal pelvic CT showing hepatic steatosis, and cholelithiasis without ductal dilation Left Flank Pain -Patient with left flank pain without certain cause. -Chest CT not showing any fractures. Abdominal pelvic CT showing right hip ORIF, but no acute fractures or dislocations -Will continue with Tylenol as needed for pain management. HTN - Continue home meds. Dispo: PT/OT for eval; anticipate discharge to SNF Diet: HH, DM-2 VTE ppx: SCD FULL CODE Admission and Anticipated Discharge Date Admission Date: April 28, 2023 Supervising Physician Co-Signing Physician Notes Attending attestation Pt seen and examined in concert with Dr. Natarajan. In agreement with the documented findings as noted in the resident documentation with any exceptions or additions as noted here. Ongoing delirium, unwilling to answer orientation questions nor allow for physical examination today. Delrium, likely secondary to dementia - frequent reorientation and monitoring, consider 1:1 over low dose antipsychotic medication for agitation if needed. Confirmation w/ spouse that this has been a jail, progressive issue. CBC, CMP, HIV, B12, folate, RPR. Consider MRI vs. neuro consult if worsening/changes. DMII, insulin-dependent, uncontrolled - basal bolus insulin with adjustment based on ISS use. Monitor glucose levels and A1c Chronic flank pain of uncertain etiology - pain control APAP Per spouse return to home with current level of care is untenable at present, care management connection for support of care. Else see resident documentation as noted. Subjective . There is a 77-year-old male with past medical history of DM type II and dementia who was admitted after experiencing worsening confusion as per his family. He was evaluated bedside and was found to be alone, awake and alert, and disoriented to person place and time, afebrile, and in no acute distress. Patient was found to be talking to his TV controller as though it were a phone. Nursing indicates that patient did not sleep last night, but did not become agitated or combative. Denies chest pain, shortness of breath, fevers, chills, or any other systemic symptoms. Review of Systems Review of Systems: As per HPI. Physical Exam Physical Exam: GENERAL: Awake and alert, oriented only to person and place, afebrile, no acute distress HEAD: Atraumatic and normocephalic EYES: EOM intact THROAT: Normal to visual inspection GI: Soft, nontender, nondistended EXTREMITIES: No swelling in bilateral lower extremities, no visible deformities SKIN: No rashes Results & Data Results & Data Vital Signs (Past 12 Hours) Vital Signs Temp Pulse Pulse Pulse Resp BP BP 05/01/23 07:15 05/01/23 07:15 95 H 05/01/23 07:03 37.2 C 100 H 18 132/76 05/01/23 03:56 36.4 C L 100 H 18 131/79 05/01/23 00:01 37 C 97 H 18 123/71 Pulse Ox O2 Del Method 05/01/23 07:15 Room Air 05/01/23 07:15 05/01/23 07:03 94 Room Air 05/01/23 03:56 95 Room Air 05/01/23 00:01 93 Room Air
[2023-05-02 07:05] LABS: Basophils # (auto) 0.05 K/uL (0.00-0.20); Basophils % (auto) 0.7 %; Eosinophils # (auto) 0.08 K/uL (0.00-0.50); Eosinophils % (auto) 1.1 %; Hematocrit (blood only) 36.9 % (42.0-52.0); Hemoglobin 12.2 g/dl (14.0-18.0); Immature Granulocytes # (auto) 0.02 K/uL (0.01-0.20); Immature Granulocytes % (auto) 0.3 %; Lymphocytes # (auto) 1.39 K/uL (1.20-3.40); Lymphocytes % (auto) 19.7 %; Mean Corpuscular Hemoglobin 26.7 pg (25.0-34.0); Mean Corpuscular Hgb Conc 33.1 g/dL (32.0-36.0); Mean Corpuscular Volume 80.7 fL (80.0-100.0); Mean Platelet Volume 10.3 fL (9.4-12.4); Monocytes % (auto) 14.2 %; Platelet Count 188 K/uL (130-400); RDW Coefficient of Variation 13.1 % (11.5-14.5); RDW Standard Deviation 38.1 fL (36.4-46.3); Red Blood Count 4.57 M/uL (4.70-6.10); White Blood Count 7.04 K/ul (4.8-10.8)
[2023-05-02 07:20] LABS: Albumin Globulin Ratio 1.1 (0.9-2); Albumin Level 3.5 gm/dl (3.4-5.0); BUN Creatinine Ratio 22.7 (10-20); Bilirubin,Total 1.6 mg/dl (0.2-1.0); Creatinine Clr Calc Pharmacy 61.8 ml/min; Est GFR (African American) 86.9 ml/min; Globulin 3.1 gm/dl (2.5-4.0); Potassium 3.3 mmol/L (3.5-5.1); Total Protein 6.6 gm/dl (6.0-8.3)
[2023-05-02] MEDS: POLYETHYLENE (MIRALAX) 17 GM PACK PO ONE (10:05)
--- NOTE | 2023-05-02 11:10 | Hospitalist Progress Note ---
Date of Service May 02, 2023 Assessment & Plan (1) Uncontrolled diabetes mellitus with hyperglycemia: (2) Altered mental status: (3) Dementia: (4) Right thalamic infarction: Plan: Hx of this noted. (5) Vertebral artery stenosis/occlusion: Plan: Hx of this noted (6) Hepatic steatosis: (7) Cholelithiasis: (8) Elevated LFTs: Plan Mr. Degroot is a 77-year-old male who was admitted due to worsening confusion in the setting of a known diagnosis of dementia. AMS in the setting of known dementia -Patient with worsening confusion in the setting of a known diagnosis of dementia. Today exhibiting symptoms of acute confusion/delirium. -After discussion with patient's on the phone, she states that patient has been experiencing worsening episodes of acute confusion spanning anywhere between 6 to 12 months. -Auscultating possibility of discharge to long-term care facility. -PT and OT consult ordered. DM-II, uncontrolled -Patient with known history of diabetes which is managed with home insulin and Jardiance. - Tylenol blood sugar on admission was 339, with a hemoglobin A1c of 10.7%. -Blood sugars have been more controlled compared to blood sugar at the time of admission. This raises further suspicion that current uncontrolled status of his diabetes may be related to not taking home insulin and antiglycemic medications as advised rather than therapy failure. -Will continue home Lantus and correctional sliding scale, as well as Jardiance. Abnormal LFTs - Hyperbilirubinemia with elevated alkaline phosphatase. Resolved. -Abdominal pelvic CT showing hepatic steatosis, and cholelithiasis without ductal dilation Left Flank Pain -Patient with left flank pain without certain cause. -Chest CT not showing any fractures. Abdominal pelvic CT showing right hip ORIF, but no acute fractures or dislocations -Will continue with Tylenol as needed for pain management. HTN - Continue home meds. Dispo: PT/OT for eval; anticipate discharge to SNF Diet: HH, DM-2 VTE ppx: SCD FULL CODE Admission and Anticipated Discharge Date Admission Date: April 28, 2023 Supervising Physician Co-Signing Physician Notes Attending attestation I personally examined the patient and verified all miller points of history and exam, discussed case, and agree with decision making with Dr Natarajan no meaningful HPI review of systems obtainable. Vitals noted, in general he is awake and alert confused but no distress. HEENT normocephalic atraumatic mucous membranes moist. Breathing unlabored no accessory muscle use good effort. Skin shows no rashes no pallor or icterus. Neuro without focal deficits. Delrium, likely secondary to dementia - Supportive care, reassurance, safe environment. DMII, A1c 10.7. Continue basal bolus insulin. (Tighten bolus given that he is disproportionately receiving basal, and his sugars are a bit on the high side) Chronic flank pain of uncertain etiology - pain control APAP case management working on dispo, otherwise as above Subjective There is a 77-year-old male with past medical history of DM type II and dementia who was admitted after experiencing worsening confusion as per his family. He was evaluated bedside and was found to be alone, awake and alert, and disoriented to person place and time, afebrile, and in no acute distress. Nursing states that patient was walking around last night and did not fall asleep until 3am. He has been on 1:1 due to this but he did not exhibit agitation. Denies chest pain, shortness of breath, fevers, chills, or any other systemic symptoms. Review of Systems Review of Systems: As per HPI. Physical Exam Physical Exam: GENERAL: Awake and alert, oriented only to person and place, afebrile, no acute distress HEAD: Atraumatic and normocephalic EYES: EOM intact THROAT: Normal to visual inspection GI: Soft, nontender, nondistended EXTREMITIES: No swelling in bilateral lower extremities, no visible deformities SKIN: No rashes Results & Data Results & Data Vital Signs (Past 12 Hours) Vital Signs Temp Pulse Pulse Resp BP BP Pulse Ox 05/02/23 11:05 36.7 C 94 H 18 140/75 97 05/02/23 09:00 05/02/23 09:00 83 05/02/23 07:00 36.6 C 84 18 123/70 93 05/02/23 03:14 36.5 C 90 20 120/81 95 05/02/23 00:00 97 H O2 Del Method 05/02/23 11:05 Room Air 05/02/23 09:00 Room Air 05/02/23 09:00 05/02/23 07:00 Room Air 05/02/23 03:14 Room Air 05/02/23 00:00
--- NOTE | 2023-05-02 18:12 | Billing Data ---
Date of Service May 02, 2023 Coding Level of Care Code 28926 SUB INP/OBS CARE
[2023-05-02] MEDS: POLYETHYLENE (MIRALAX) 17 GM PACK PO SCH (19:16)
[2023-05-03 08:50] LABS: BUN Creatinine Ratio 17.2 (10-20); Calcium 9.3 mg/dl (8.6-10.3); Creatinine Clr Calc Pharmacy 64.4 ml/min; Est GFR (African American) 91.5 ml/min; Est GFR (Non-African American) 78.9 ml/min; Magnesium 1.5 mg/dl (1.7-2.4); Potassium 4.2 mmol/L (3.5-5.1)
--- NOTE | 2023-05-03 10:17 | Hospitalist Progress Note ---
Date of Service May 03, 2023 Assessment & Plan (1) Uncontrolled diabetes mellitus with hyperglycemia: (2) Altered mental status: (3) Dementia: (4) Right thalamic infarction: Plan: Hx of this noted. (5) Vertebral artery stenosis/occlusion: Plan: Hx of this noted (6) Hepatic steatosis: (7) Cholelithiasis: (8) Elevated LFTs: Plan Mr. Degroot is a 77-year-old male who was admitted due to worsening confusion in the setting of a known diagnosis of dementia. AMS in the setting of known dementia -Patient with worsening confusion in the setting of a known diagnosis of dementia. Today exhibiting symptoms of acute confusion/delirium. -After discussion with patient's on the phone, she states that patient has been experiencing worsening episodes of acute confusion spanning anywhere between 6 to 12 months. -PT and OT consult ordered and consider patient to be able to move independently. -Auscultating possibility of discharge to long-term care facility. DM-II, uncontrolled -Patient with known history of diabetes which is managed with home insulin and Jardiance. - Tylenol blood sugar on admission was 339, with a hemoglobin A1c of 10.7%. -Will continue home Lantus and correctional sliding scale, as well as Jardiance. Abnormal LFTs - Hyperbilirubinemia with elevated alkaline phosphatase. Resolved. -Abdominal pelvic CT showing hepatic steatosis, and cholelithiasis without ductal dilation Left Flank Pain -Patient with left flank pain without certain cause. -Chest CT not showing any fractures. Abdominal pelvic CT showing right hip ORIF, but no acute fractures or dislocations -Will continue with Tylenol as needed for pain management. HTN - Continue home meds. Dispo: PT/OT for eval; anticipate discharge to SNF Diet: HH, DM-2 VTE ppx: SCD, Lovenox FULL CODE Admission and Anticipated Discharge Date Admission Date: April 28, 2023 Supervising Physician Co-Signing Physician Notes Attending attestation I personally examined the patient and verified all miller points of history and exam, discussed case, and agree with decision making with Dr Natarajan no meaningful HPI review of systems obtainable. Vitals noted, in general he is awake and alert confused but no distress. HEENT normocephalic atraumatic mucous membranes moist. Breathing unlabored no accessory muscle use good effort. Skin shows no rashes no pallor or icterus. Neuro without focal deficits. Delrium, likely secondary to dementia - Supportive care, reassurance, needs [facility] safe environment. DMII, A1c 10.7. Continue basal bolus insulin. (increase both basal and tighten bolus given all sugars high today -suspect better PO intake) Chronic flank pain of uncertain etiology - pain control APAP case management working on dispo, otherwise as above Subjective There is a 77-year-old male with past medical history of DM type II and dementia who was admitted after experiencing worsening confusion as per his family. He was evaluated bedside and was found to be alone, awake and alert, and in NAD. Patient oriented to person, and on suggestions/slight guiding, patient was able to say that he was in [place] close to [facility], and that the year was 2023. Patient became disoriented once more when moved to a different room and windows were closed. Patient currently on one-on-one observation due to disorientation and ambulation, but no episodes of agitation or combativeness. Denies chest pain, shortness of breath, fevers, chills, or any other systemic symptoms. Review of Systems Review of Systems: As per HPI. Physical Exam Physical Exam: GENERAL: Awake and alert, oriented only to person and place, afebrile, no acute distress HEAD: Atraumatic and normocephalic EYES: EOM intact THROAT: Normal to visual inspection CARDIO: RRR, no rubs/murmur/gallops RESP: CTA bilaterally, normal respiratory effort, no respiratory distress GI: Soft, nontender, nondistended EXTREMITIES: No swelling in bilateral lower extremities, no visible deformities SKIN: No rashes Results & Data Results & Data Vital Signs (Past 12 Hours) Vital Signs Temp Pulse Resp BP Pulse Ox O2 Del Method 05/03/23 07:00 36.8 C 94 H 20 122/77 95 Room Air 05/03/23 00:01 36.7 C 106 H 20 141/75 H 98 Room Air
[2023-05-03] MEDS: MAGNESIUM SULFATE / D5W 1 GM/100 ML BAG IV SCH (10:33)
--- NOTE | 2023-05-03 20:09 | Billing Data ---
Date of Service May 03, 2023 Coding Level of Care Code 29976 SUB INP/OBS CARE
[2023-05-04 08:24] LABS: BUN Creatinine Ratio 19.8 (10-20); Calcium 9.1 mg/dl (8.6-10.3); Creatinine Clr Calc Pharmacy 65.9 ml/min; Est GFR (African American) 93.9 ml/min; Magnesium 1.8 mg/dl (1.7-2.4); Potassium 3.7 mmol/L (3.5-5.1)
[2023-05-04] MEDS: LANTUS PER UNIT CHARGE SC SCH (08:33)
--- NOTE | 2023-05-04 09:44 | Hospitalist Progress Note ---
Date of Service May 04, 2023 Assessment & Plan (1) Uncontrolled diabetes mellitus with hyperglycemia: (2) Altered mental status: (3) Dementia: (4) Right thalamic infarction: Plan: Hx of this noted. (5) Vertebral artery stenosis/occlusion: Plan: Hx of this noted (6) Hepatic steatosis: (7) Cholelithiasis: (8) Elevated LFTs: Plan Mr. Degroot is a 77-year-old male who was admitted due to worsening confusion in the setting of a known diagnosis of dementia. AMS in the setting of known dementia -Patient with worsening confusion for the last 6-12 months in the setting of a known diagnosis of dementia. -PT and OT consult ordered and consider patient to be able to move independently. -Auscultating possibility of discharge to long-term care facility. DM-II, uncontrolled -Patient with known history of diabetes which is managed with home insulin and Jardiance. - Tylenol blood sugar on admission was 339, with a hemoglobin A1c of 10.7%. -Will continue home Lantus and correctional sliding scale, as well as Jardiance. Abnormal LFTs - Hyperbilirubinemia with elevated alkaline phosphatase. Resolved. -Abdominal pelvic CT showing hepatic steatosis, and cholelithiasis without ductal dilation Left Flank Pain -Patient with left flank pain without certain cause. -Chest CT not showing any fractures. Abdominal pelvic CT showing right hip ORIF, but no acute fractures or dislocations -Will continue with Tylenol as needed for pain management. HTN - Continue home meds. Dispo: PT/OT for eval; anticipate discharge to SNF Diet: HH, DM-2 VTE ppx: SCD, Lovenox FULL CODE Admission and Anticipated Discharge Date Admission Date: April 28, 2023 Supervising Physician Co-Signing Physician Notes Attending attestation I personally examined the patient and verified all miller points of history and exam, discussed case, and agree with decision making with Dr Natarajan again no meaningful HPI review of systems obtainable. Vitals noted, in general he is awake and alert confused but no distress. HEENT normocephalic atraumatic mucous membranes moist. Breathing unlabored no accessory muscle use good effort. Skin shows no rashes no pallor or icterus. Neuro without focal deficits. Delrium, likely secondary to dementia - Supportive care, reassurance, needs senior living safe environment. case management assisting family in working on this DMII, A1c 10.7. Continue basal bolus insulin. (05/03 increases appear to have affected more acceptable sugar control - continue current and follow) Chronic flank pain of uncertain etiology - pain control APAP case management working on dispo, otherwise as above Subjective Mr. Combs is a 77-year-old male with past medical history of DM type II and dementia who was admitted after experiencing worsening confusion as per his family. He was evaluated bedside and was found to be alone, awake and alert, and in NAD. Patient oriented to person, and on suggestions/slight guiding, patient was able to say that he was in [place]. Not oriented to time. No new concerns. Denies chest pain, shortness of breath, fevers, chills, or any other systemic symptoms. Review of Systems Review of Systems: As per HPI. Physical Exam Physical Exam: GENERAL: Awake and alert, oriented only to person and place, afebrile, no acute distress HEAD: Atraumatic and normocephalic EYES: EOM intact THROAT: Normal to visual inspection CARDIO: RRR, no rubs/murmur/gallops RESP: CTA bilaterally, normal respiratory effort, no respiratory distress GI: Soft, nontender, nondistended EXTREMITIES: No swelling in bilateral lower extremities, no visible deformities SKIN: No rashes Results & Data Results & Data Vital Signs (Past 12 Hours) Vital Signs Temp Pulse Resp BP Pulse Ox O2 Del Method 05/04/23 07:24 Room Air 05/04/23 07:09 37.0 C 95 H 18 145/73 H 94 Room Air
--- NOTE | 2023-05-04 13:39 | Billing Data ---
Date of Service May 04, 2023 Coding Level of Care Code 20742 SUB INP/OBS CARE
--- NOTE | 2023-05-05 11:09 | Hospitalist Progress Note ---
Date of Service May 05, 2023 Assessment & Plan (1) Uncontrolled diabetes mellitus with hyperglycemia: (2) Altered mental status: (3) Dementia: (4) Right thalamic infarction: Plan: Hx of this noted. (5) Vertebral artery stenosis/occlusion: Plan: Hx of this noted (6) Hepatic steatosis: (7) Cholelithiasis: (8) Elevated LFTs: Plan Mr. Degroot is a 77-year-old male who was admitted due to worsening confusion in the setting of a known diagnosis of dementia. AMS in the setting of known dementia -Patient with worsening confusion for the last 6-12 months in the setting of a known diagnosis of dementia. -PT and OT consult ordered and consider patient to be able to move independently. -Auscultating possibility of discharge to long-term care facility. DM-II, uncontrolled -Patient with known history of diabetes which is managed with home insulin and Jardiance. - Tylenol blood sugar on admission was 339, with a hemoglobin A1c of 10.7%. -Will continue home Lantus and correctional sliding scale, as well as Jardiance. Abnormal LFTs - Hyperbilirubinemia with elevated alkaline phosphatase. Resolved. -Abdominal pelvic CT showing hepatic steatosis, and cholelithiasis without ductal dilation Left Flank Pain -Patient with left flank pain without certain cause. -Chest CT not showing any fractures. Abdominal pelvic CT showing right hip ORIF, but no acute fractures or dislocations -Will continue with Tylenol as needed for pain management. HTN - Continue home meds. Dispo: PT/OT for eval; anticipate discharge to SNF Diet: HH, DM-2 VTE ppx: SCD, Lovenox FULL CODE Admission and Anticipated Discharge Date Admission Date: April 28, 2023 Supervising Physician Co-Signing Physician Notes Attending attestation I personally examined the patient and verified all miller points of history and exam, discussed case, and agree with decision making with Dr Natarajan again no meaningful HPI review of systems obtainable. happily eating lunch. Vitals noted, in general he is awake and alert confused but no distress. HEENT normocephalic atraumatic mucous membranes moist. Breathing unlabored no accessory muscle use good effort. Skin shows no rashes no pallor or icterus. Neuro without focal deficits. Delrium, likely secondary to dementia - Supportive care, reassurance, needs senior care safe environment. case management assisting family in working on this DMII, A1c 10.7. Continue basal bolus insulin. (05/03 increases continue to appear to have affected more acceptable sugar control - continue current and follow) Chronic flank pain of uncertain etiology - pain control APAP case management working on dispo, otherwise as above Subjective Patient was evaluated at bedside and found to be sitting on bedside chair, awake, alert, oriented to state, year and person, and in no acute distress. Patient denies having pain, chest pain, shortness of breath, fevers, chills, or any other systemic symptoms. Review of Systems Review of Systems: As per HPI. Physical Exam Physical Exam: GENERAL: Awake and alert, oriented only to person and place, afebrile, no acute distress HEAD: Atraumatic and normocephalic EYES: EOM intact THROAT: Normal to visual inspection CARDIO: RRR, no rubs/murmur/gallops RESP: CTA bilaterally, normal respiratory effort, no respiratory distress GI: Soft, nontender, nondistended EXTREMITIES: No swelling in bilateral lower extremities, no visible deformities SKIN: No rashes Results & Data Results & Data Vital Signs (Past 12 Hours) Vital Signs Temp Pulse Resp BP Pulse Ox O2 Del Method 05/05/23 07:43 36.7 C 98 H 16 135/70 97 Room Air
--- NOTE | 2023-05-05 19:35 | Billing Data ---
Date of Service May 05, 2023 Coding Level of Care Code 09812 SUB INP/OBS CARE
[2023-05-05] MEDS: OLANZapine 10 MG/2.1 ML SDV IM PRN (20:44)
[2023-05-05] MEDS ORDERED: OLANZapine 10 MG/2.1 ML SDV IM PRN (22:21)
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
--- NOTE | 2023-05-06 18:09 | Billing Data ---
Date of Service May 06, 2023 Coding Level of Care Code 59995 SUB INP/OBS CARE
--- NOTE | 2023-05-07 07:51 | Hospitalist Progress Note ---
Date of Service May 07, 2023 Assessment & Plan (1) Uncontrolled diabetes mellitus with hyperglycemia: (2) Altered mental status: (3) Dementia: (4) Right thalamic infarction: Plan: Hx of this noted. (5) Vertebral artery stenosis/occlusion: Plan: Hx of this noted (6) Hepatic steatosis: (7) Cholelithiasis: (8) Elevated LFTs: Plan Mr. Degroot is a 77-year-old male who was admitted due to worsening confusion in the setting of a known diagnosis of dementia. AMS in the setting of known dementia -Patient with worsening confusion for the last 6-12 months in the setting of a known diagnosis of dementia. -PT and OT consult ordered and consider patient to be able to move independently. -Patient experienced acute confusion 2 nights ago that caused him to become agitated, requiring 2 doses of Zyprexa and placing patient on one-on-one. - Currently found to be more calm, lying in his bed. - Continue orientation measures, and checks every 15 minutes. -Auscultating possibility of discharge to long-term care facility. CM following DM-II, uncontrolled -Patient with known history of diabetes which is managed with home insulin and Jardiance. - Tylenol blood sugar on admission was 339, with a hemoglobin A1c of 10.7%. - Hold Jardiance -Will continue home Lantus and correctional sliding scale. Abnormal LFTs - Hyperbilirubinemia with elevated alkaline phosphatase. Resolved. -Abdominal pelvic CT showing hepatic steatosis, and cholelithiasis without du ctal dilation Left Flank Pain -Patient with left flank pain without certain cause. No recurrence. -Chest CT not showing any fractures. Abdominal pelvic CT showing right hip ORIF, but no acute fractures or dislocations -Will continue with Tylenol as needed for pain management. HTN - Continue home meds. Dispo: PT/OT for eval; anticipate discharge to SNF Diet: HH, DM-2 VTE ppx: SCD, Lovenox FULL CODE Admission and Anticipated Discharge Date Admission Date: April 28, 2023 Supervising Physician Co-Signing Physician Notes I personally examined the patient and verified all miller points of history and exam, discussed case, and agree with decision making with Dr. Abe Cohen No meaningful HPI review of systems obtainable. Happily eating lunch. Vitals within normal limits, in general he is awake and alert and confused but no distress. HEENT normocephalic atraumatic mucous membranes moist. Breathing unlabored no accessory muscle use good effort. Skin shows no rashes no pallor or icterus. Neuro without focal deficits. Delirium, likely secondary to dementia - Supportive care, reassurance, needs intermediate accountant safe environment. case management assisting family in working on this. Would suggest taking a walk or trying food to calm agitation if possible/if situation allows (he always seems happy when he has food with him) DMII, A1c 10.7. Continue basal bolus insulin. (05/03 increases continue to appear to have affected more acceptable sugar control - continue current and follow) Chronic flank pain of uncertain etiology - pain control APAP case management working on dispo, otherwise as above Subjective Patient was evaluated at bedside and found to be awake alert, and oriented to person only. Refers feeling tires, but otherwise ok. Had an agitated episode 2 nights ago that required Zyprexa x 2. No events last night as per nursing. He is on Q15 minutes check. Denied any SOB or chest pain Review of Systems Review of Systems: as per HPI Physical Exam Physical Exam: GENERAL: Awake and alert, oriented only to person, afebrile, tired appearing, no acute distress HEAD: Atraumatic and normocephalic CARDIO: RRR, no rubs/murmur/gallops RESP: CTA bilaterally, normal respiratory effort, no respiratory distress GI: Soft, nontender, nondistended EXTREMITIES: No swelling in bilateral lower extremities, no visible deformities SKIN: No rashes Results & Data Results & Data Vital Signs (Past 12 Hours) Vital Signs Temp Pulse Resp BP Pulse Ox O2 Del Method 05/06/23 21:00 36.8 C 81 18 145/80 H 95 Room Air Resident Activity Tracking Resident Involvement: Resident Care Provided Care Provided: Adult Hospital Medicine
--- NOTE | 2023-05-07 14:48 | Billing Data ---
Date of Service May 07, 2023 Coding Level of Care Code 68441 SUB INP/OBS CARE
--- NOTE | 2023-05-08 07:56 | Hospitalist Progress Note ---
Date of Service May 08, 2023 Assessment & Plan (1) Uncontrolled diabetes mellitus with hyperglycemia: (2) Altered mental status: (3) Dementia: (4) Right thalamic infarction: Plan: Hx of this noted. (5) Vertebral artery stenosis/occlusion: Plan: Hx of this noted (6) Hepatic steatosis: (7) Cholelithiasis: (8) Elevated LFTs: Plan Mr. Degroot is a 77-year-old male who was admitted due to worsening confusion in the setting of a known diagnosis of dementia. AMS in the setting of known dementia -Patient with worsening confusion for the last 6-12 months in the setting of a known diagnosis of dementia. -PT and OT consult ordered and consider patient to be able to move independently. - Had an episode of agitation requiring zyprexa, 3 nights ago. - Continue orientation measures, and checks every 15 minutes. -Auscultating possibility of discharge to long-term care facility. CM following DM-II, uncontrolled -Patient with known history of diabetes which is managed with home insulin and Jardiance. - Tylenol blood sugar on admission was 339, with a hemoglobin A1c of 10.7%. - Hold Jardiance -Will continue home Lantus and correctional sliding scale. Abnormal LFTs- Resolved - Hyperbilirubinemia with elevated alkaline phosphatase -Abdominal pelvic CT showing hepatic steatosis, and cholelithiasis without ductal dilation - will hold labs for now. Left Flank Pain -Patient with left flank pain without certain cause. No recurrence. -Chest CT not showing any fractures. Abdominal pelvic CT showing right hip ORIF, but no acute fractures or dislocations -Will continue with Tylenol as needed for pain management. HTN - Continue home meds. Dispo: PT/OT for eval; anticipate discharge to SNF Diet: HH, DM-2 VTE ppx: SCD, Lovenox FULL CODE Admission and Anticipated Discharge Date Admission Date: April 28, 2023 Supervising Physician Co-Signing Physician Notes I personally examined the patient and verified all miller points of history and exam, discussed case, and agree with decision making with Dr. Abe Cohen No meaningful HPI review of systems obtainable. Happily eating lunch. Vitals within normal limits, in general he is awake and alert and confused but no distress. HEENT normocephalic atraumatic mucous membranes moist. Breathing unlabored no accessory muscle use good effort. Skin shows no rashes no pallor or icterus. Neuro without focal deficits. Delirium, likely secondary to dementia - Supportive care, reassurance, needs terminal make up operator safe environment. case management assisting family in working on this. Would suggest taking a walk or trying food to calm agitation if possible/if situation allows (he always seems happy when he has food with him) DMII, A1c 10.7. Continue basal bolus insulin. (05/03 increases continue to appear to have affected more acceptable sugar control - continue current and follow) Chronic flank pain of uncertain etiology - pain control APAP case management working on dispo, otherwise as above Subjective Mr. Malik was seen this morning. Found eating breakfast. He was very pleasant, oriented to place and person. In non acute distress. Pending placement, CM following Review of Systems Review of Systems: as per HPI Physical Exam Physical Exam: GENERAL: Awake and alert, oriented only to person, afebrile, tired appearing, no acute distress CARDIO: RRR, no rubs/murmur/gallops RESP: CTA bilaterally, normal respiratory effort, no respiratory distress EXTREMITIES: No swelling in bilateral lower extremities, no visible deformities Results & Data Results & Data Vital Signs (Past 12 Hours) Vital Signs Temp Pulse Resp BP BP Pulse Ox O2 Del Method 05/08/23 07:36 36.3 C L 80 16 119/66 97 Room Air 05/07/23 21:14 36.7 C 90 18 134/66 95 Room Air Resident Activity Tracking Resident Involvement: Resident Care Provided Care Provided: Adult Hospital Medicine
--- NOTE | 2023-05-08 14:36 | Billing Data ---
Date of Service May 08, 2023 Coding Level of Care Code 78953 SUB INP/OBS CARE
--- NOTE | 2023-05-09 08:34 | Hospitalist Progress Note ---
Date of Service May 09, 2023 Assessment & Plan (1) Uncontrolled diabetes mellitus with hyperglycemia: (2) Altered mental status: (3) Dementia: (4) Right thalamic infarction: Plan: Hx of this noted. (5) Vertebral artery stenosis/occlusion: Plan: Hx of this noted (6) Hepatic steatosis: (7) Cholelithiasis: (8) Elevated LFTs: Plan Mr. Degroot is a 77-year-old male who was admitted due to worsening confusion in the setting of a known diagnosis of dementia. AMS in the setting of known dementia -Patient with worsening confusion for the last 6-12 months in the setting of a known diagnosis of dementia. -PT and OT consult ordered and consider patient to be able to move independently. - Had an episode of agitation requiring zyprexa, no agitation over the weekend, patient with pleasant demeanor today - Continue orientation measures, and checks every 15 minutes. -Possible discharge to [facility] following DM-II, uncontrolled -Patient with known history of diabetes which is managed with home insulin and Jardiance. - hemoglobin A1c of 10.7% on admission - Hold Jardiance -Will continue home Lantus and correctional sliding scale. Abnormal LFTs- Resolved - Hyperbilirubinemia with elevated alkaline phosphatase -Abdominal pelvic CT showing hepatic steatosis, and cholelithiasis without ductal dilation HTN - Continue home meds. Dispo: Anticipate discharge to terminal operations manager care facility Diet: HH, DM-2 VTE ppx: SCD, Lovenox FULL CODE Admission and Anticipated Discharge Date Admission Date: April 28, 2023 Supervising Physician Co-Signing Physician Notes Attending Physician Supervision Note: I independently interviewed and examined the patient and verified the miller history and physical, reviewed labs and image studies and agree with findings and care plan noted above. Brother at bedside. Unable to recall events but holding some conversation with brother. Delirium, likely secondary to dementia - Mentation at baseline today. Hasn't needed zyprexa in days. Supportive care, reassurance, needs terminal operations manager safe environment. Plans for d/c to [place]. DMII, A1c 10.7. Continue basal & bolus insulin. Chronic flank pain of uncertain etiology - pain control APAP case management working on dispo, otherwise as above To consider goals of care discussion Subjective Mr. Malik was seen this morning, pleasant on evaluation. Oriented to self but not to place or time, occasionally tangential speech. No acute complaints. Review of Systems Review of Systems: as per HPI Physical Exam Physical Exam: General: Alert and oriented. No acute distress Cardiac: Regular rate and rhythm, no murmurs appreciated Respiratory: Lungs clear to auscultation bilaterally, No increased work of breathing Abdominal: non-tender, non-distended. Extremities: warm, well perfused Results & Data Results & Data Vital Signs (Past 12 Hours) Vital Signs Temp Pulse Resp BP Pulse Ox O2 Del Method 05/09/23 07:41 36.5 C 78 18 136/81 96 Room Air 05/08/23 21:57 Room Air Resident Activity Tracking Resident Involvement: Resident Care Provided Care Provided: Adult Hospital Medicine
--- NOTE | 2023-05-10 11:42 | Hospitalist Progress Note ---
Date of Service May 10, 2023 Assessment & Plan (1) Uncontrolled diabetes mellitus with hyperglycemia: (2) Altered mental status: (3) Dementia: (4) Right thalamic infarction: Plan: Hx of this noted. (5) Vertebral artery stenosis/occlusion: Plan: Hx of this noted (6) Hepatic steatosis: (7) Cholelithiasis: (8) Elevated LFTs: Plan Mr. Degroot is a 77-year-old male who was admitted due to worsening confusion in the setting of a known diagnosis of dementia. AMS in the setting of known dementia -Patient with worsening confusion for the last 6-12 months in the setting of a known diagnosis of dementia. -PT and OT consult ordered and consider patient to be able to move independently. - Had an episode of agitation requiring zyprexa, no agitation noted since - Continue orientation measures, and checks every 15 minutes. -Possible discharge to [facility] following DM-II, uncontrolled -Patient with known history of diabetes which is managed with home insulin and several antihyperglycemic medications - hemoglobin A1c of 10.7% on admission - Hold oral antihyperglycemics -Will continue Lantus and correctional sliding scale. Abnormal LFTs- Resolved - Hyperbilirubinemia with elevated alkaline phosphatase -Abdominal pelvic CT showing hepatic steatosis, and cholelithiasis without ductal dilation HTN - Continue home meds. Dispo: Anticipate discharge to [facility] Diet: HH, DM-2 VTE ppx: SCD, Lovenox FULL CODE Admission and Anticipated Discharge Date Admission Date: April 28, 2023 Supervising Physician Co-Signing Physician Notes Attending Physician Supervision Note: I independently interviewed and examined the patient and verified the miller history and physical, reviewed labs and image studies and agree with findings and care plan noted above. working with PT this am. unable to form proper sentences. easily distracted. Delirium, likely secondary to dementia/ h/o thalamic stroke 2019 - Mentation at baseline today. Hasn't needed zyprexa in days. Supportive care, reassurance, needs organizational effectiveness consultant safe environment. Plans for d/c to locked dementia unit. DMII, A1c 10.7. Continue basal & bolus insulin. Chronic flank pain of uncertain etiology - pain control APAP dispo per case management, otherwise as above To consider goals of care discussion Subjective Mr. Malik was seen this morning, pleasant on evaluation. Oriented to self but not to place or time, occasionally tangential speech. No acute complaints, denies abdominal pain, SOB, CP. No major changes. Review of Systems Review of Systems: as per HPI Physical Exam Physical Exam: General: Alert and oriented. No acute distress Cardiac: Regular rate and rhythm, no murmurs appreciated Respiratory: Lungs clear to auscultation bilaterally, No increased work of breathing Abdominal: non-tender, non-distended. Extremities: warm, well perfused Results & Data Results & Data Vital Signs (Past 12 Hours) Vital Signs Temp Pulse Resp BP Pulse Ox O2 Del Method 05/10/23 08:30 Room Air 05/10/23 07:27 36.5 C 93 H 16 146/73 H 96 Room Air Resident Activity Tracking Resident Involvement: Resident Care Provided Care Provided: Adult Hospital Medicine
--- NOTE | 2023-05-11 07:35 | Hospitalist Progress Note ---
Date of Service May 11, 2023 Assessment & Plan (1) Uncontrolled diabetes mellitus with hyperglycemia: (2) Altered mental status: (3) Dementia: (4) Right thalamic infarction: Plan: Hx of this noted. (5) Vertebral artery stenosis/occlusion: Plan: Hx of this noted (6) Hepatic steatosis: (7) Cholelithiasis: (8) Elevated LFTs: Plan Mr. Degroot is a 77-year-old male who was admitted due to worsening confusion in the setting of a known diagnosis of dementia. AMS in the setting of known dementia -Patient with worsening confusion for the last 6-12 months in the setting of a known diagnosis of dementia. -PT and OT consult ordered and consider patient to be able to move independently. - Had an episode of agitation requiring Zyprexa, no agitation noted since - Continue orientation measures, and checks every 15 minutes. -Likely discharge to [facility] tomorrow AM, CM following DM-II, uncontrolled -Patient with known history of diabetes which is managed with home insulin and several antihyperglycemic medications - hemoglobin A1c of 10.7% on admission - Oral antihyperglycemics held during hospitalization, plan to resume home regimen upon discharge -Will continue Lantus and correctional sliding scale today, resume home Lantus dose tomorrow and discontinue SSI on discharge. Abnormal LFTs- Resolved - Hyperbilirubinemia with elevated alkaline phosphatase -Abdominal pelvic CT showing hepatic steatosis, and cholelithiasis without ductal dilation HTN - Continue home meds. Dispo: Anticipate discharge to [facility] 3/7 AM Diet: HH, DM-2 VTE ppx: SCD, Lovenox FULL CODE Admission and Anticipated Discharge Date Admission Date: April 28, 2023 Supervising Physician Co-Signing Physician Notes Attending Physician Supervision Note: I independently interviewed and examined the patient and verified the miller history and physical, reviewed labs and image studies and agree with findings and care plan noted above. easily distracted. Delirium, likely secondary to dementia/ h/o thalamic stroke 2019 - Mentation at baseline today. Hasn't needed zyprexa in days. Supportive care, reassurance, needs long term care phlebotomist safe environment. Plans for d/c to locked dementia unit. DMII, A1c 10.7. Transition to home regimen in am. A1c high likely from non- adherence d/t cognitive dysfunction. Chronic flank pain of uncertain etiology - pain control APAP dispo per case management, otherwise as above To consider goals of care discussion Subjective Mr. Malik was seen this morning, pleasant on evaluation. Oriented to self but not to place or time, occasional tangential speech. No acute complaints, denies abdominal pain, SOB, CP. No major changes. CM following, anticipate discharge to [facility] tomorrow AM. Review of Systems Review of Systems: as per HPI Physical Exam Physical Exam: General: Alert and oriented. No acute distress Cardiac: Regular rate and rhythm, no murmurs appreciated Respiratory: Lungs clear to auscultation bilaterally, No increased work of breathing Abdominal: non-tender, non-distended. Extremities: warm, well perfused Results & Data Results & Data Vital Signs (Past 12 Hours) Vital Signs Temp Pulse Resp BP Pulse Ox O2 Del Method 05/11/23 06:55 36.6 C 78 16 125/74 96 Room Air 05/10/23 19:41 36.7 C 72 16 120/70 97 Room Air Resident Activity Tracking Resident Involvement: Resident Care Provided Care Provided: Adult Hospital Medicine
[2023-05-11] MEDS ORDERED: LANTUS PER UNIT CHARGE SC SCH (09:00)
[2023-05-11] MEDS: LANTUS PER UNIT CHARGE SC SCH (09:07)
[2023-05-11] MEDS: INSULIN ASPART PER UNIT CHARGE SC SCH (17:22)
--- NOTE | 2023-05-12 06:44 | Discharge Summary ---
Date of Service May 12, 2023 Admission HPI Per Admitting Provider This is a pleasant 77-year-old male who apparently has memory impairment which with probable worsening dementia brought in by his family today for worsening hallucinations. In addition he has been having marked worsening hyperglycemia. This history is obtained from the emergency department the family left prior to us being called for admission. The patient had a noncontrast CT of the brain which was negative for acute findings. Patient had laboratory studies which were benign with exception of a blood glucose level of 392 mg/dL with a bilirubin total of 1.5 with alkaline phosphatase of 131. Urinalysis appears negative for infection but was positive for 3+ glucose urea which was unchanged from 2019. Urine drug screen was ordered but is pending at the time of this dictation. The patient's course Emergency Department had insulin 5 units x 1 and a liter of normal saline. Then placed the patient on a sliding scale coverage/correctional scale coverage do neurochecks. In addition the patient endorses some left-sided rib/flank pain. He states he got hit by a horse he is a poor historian but he is very tender in his left anterior rib region and he states this was a few days ago to a few weeks ago aga in he is a poor historian will CAT scan his chest abdomen pelvis to rule out occult injury Admission Exam Per Admitting Provider In General: In general this is a pleasant 77-year-old male he is alert and oriented to person only he is confused to time and place he interacts appropriate and pleasantly. He is having no hallucinations while I am in the room but apparently earlier was seeing rats in the room. HEENT: Normocephalic atraumatic pupils are equal round and reactive to light bilaterally. No scleral icterus no conjunctival injection external auditory canals are patent septum is in the midline nose is without discharge oral mucosa is pink and moist without lesion. NECK: Supple no rigidity no lymphadenopathy no thyromegaly no carotid bruits no JVD no masses. HEART: Regular rate and rhythm I do not appreciate any ectopy or rub. No murmur. LUNGS: Clear to auscultation bilaterally and anteriorly with no evidence of adventitious sounds/wheezes rales or rhonchi. ABDOMEN: Soft mild tenderness to palpation in the left anterior lateral rib region around ribs 8 9 and 10. No rebound, no peritoneal signs, positive bowel sounds, no appreciable organomegaly. EXTREMITIES: Intact, no peripheral cyanosis, clubbing or edema. Strength is 5 out of 5 in extremities x4, no pathological reflexes. NEUROLOGICAL: Cranial nerves II through XII are grossly intact with no focal deficit elicited upon examination. No tremor. Principal Diagnosis AMS Discharge Exam General: No acute distress Cardiac: Regular rate and rhythm, no murmurs appreciated Respiratory: Lungs clear to auscultation bilaterally, No increased work of breathing Abdominal: non-tender, non-distended. Extremities: warm, well perfused Neuro: AOx1, oriented to self only Discharge Data Allergies Allergy/AdvReac Type Severity Reaction Status Date / Time bee venom protein (honey bee) Allergy Intermediate HIVES Verified 12/14/19 11:49 azithromycin AdvReac Diarrhea Verified 04/28/23 19:11 Consultations 04/28/23 19:12 ED Decision to Admit Stat Ordered Studies 04/28/23 17:11 CT head/brain wo con Stat 04/28/23 20:26 CT Abd and Pelvis [CT abd pelvis IV con only] Stat CT chest diagnostic w con Stat Hospital Course (1) Uncontrolled diabetes mellitus with hyperglycemia: (2) Altered mental status: (3) Dementia: (4) Right thalamic infarction: (5) Vertebral artery stenosis/occlusion: (6) Hepatic steatosis: (7) Cholelithiasis: (8) Elevated LFTs: Plan Mr. Degroot is a 77-year-old male who was admitted due to worsening confusion in the setting of a known diagnosis of dementia. AMS in the setting of known dementia -Patient with worsening confusion for the last 6-12 months in the setting of a known diagnosis of dementia. -Consistently oriented to self but not to place, time or situation throughout hospital stay. -Patient had an episode of agitation requiring Zyprexa x1, no agitation noted since. DM-II, uncontrolled -Patient with history of diabetes, home regimen: Lantus 37 units QAM, Jardiance 25mg daily, Glipizide 10mg BID, Alogliptin 12.5mg daily, Metformin ER 1000mg BID -Hemoglobin A1c of 10.7% on admission -Oral antihyperglycemics held during hospitalization, resume home regimen (listed above) upon discharge. Otherwise continue home meds for other chronic conditions. No medication changes made. Total Time Total Time Spent Total Time Spent (In Minutes): see attending attestation Discharge Plan Discharge Items Patient Disposition: Personal Detention Reason For Visit: HYPERGLYCEMIA, DM Discharge Diagnosis: AMS in the setting of dementia Activity: Resume your previous activity Non-emergency contact: Primary Care Provider Call non-emergency contact if: you have any medication questions and your symptoms worsen Follow-up/Referrals: PCP,NO [Primary Care Provider] - Diet: Carb Consistent or DM2 and Heart Healthy Addtl Attending Provider Instructions: Mr. Degroot is a 77-year-old male who was admitted due to worsening confusion in the setting of a known diagnosis of dementia. AMS in the setting of known dementia -Patient with worsening confusion for the last 6-12 months in the setting of a known diagnosis of dementia. -Consistently oriented to self but not to place, time or situation throughout hospital stay. -Patient had an episode of agitation requiring Zyprexa x1, no agitation noted since. DM-II, uncontrolled -Patient with history of diabetes, home regimen: Lantus 37 units QAM, Jardiance 25mg daily, Glipizide 10mg BID, Alogliptin 12.5mg daily, Metformin ER 1000mg BID -Hemoglobin A1c of 10.7% on admission -Oral antihyperglycemics held during hospitalization, resume home regimen (listed above) upon discharge. -Blood glucose checks: Please check fasting blood sugar once daily -Patient given AM Lantus on morning of discharge - Please give oral antihyperglycemics upon transfer. Otherwise continue home meds for other chronic conditions. No medication changes made. Pending Studies at Discharge: No Stand-Alone Forms: [employer], Smoking Cessation Skilled Items Patient informed of condition?: Yes DNR: No Discharge Level of Care: Other Communicable Disease: No Discharge Prognosis: Stable Lines: None Urinary Catheter: No Medications and DC Order Prescriptions: Continued Jardiance 25 mg tablet 25 mg PO DAILY cyanocobalamin (vitamin B-12) [Vitamin B-12] 1,000 mcg Tablet Extended Release 1,000 mcg PO DAILY@1200 epinephrine [EpiPen] 0.3 mg/0.3 mL Auto-Injector 0.3 mg IM UD PRN (Reason: Anaphylaxis) lisinopril-hydrochlorothiazide 10-12.5 mg Tablet 1 tab PO QAM paroxetine HCl [Paxil] 40 mg Tablet 20 mg PO QAM Rx Instructions: 1/2 tablet dose cholecalciferol (vitamin D3) [Vitamin D3] 2,000 unit Tablet 2,000 unit PO DAILY@1200 metformin 500 mg Tablet Extended Release 24 Hr 1,000 mg PO BID glipizide 10 mg Tablet 10 mg PO BID ferrous sulfate 325 mg (65 mg iron) Tablet 325 mg PO DAILY pantoprazole 40 mg Tablet,Delayed Release (Dr/Ec) 40 mg PO DAILYBB Vitamin 28 mg iron- 800 mcg Tablet 1 tab PO DAILY insulin glargine-yfgn 100 unit/mL (3 mL) Insulin Pen 37 unit SUBCUT DAILY fluticasone propion-salmeterol 250-50 mcg/dose Blister With Device 1 inh INHALATION BID albuterol sulfate 90 mcg/actuation Hfa Aerosol Inhaler 2 puff INHALATION QID PRN (Reason: SOB) ketoconazole 2 % Cream 1 applic TOPICAL DAILY acetaminophen 325 mg Tablet 325 mg PO Q6 PRN (Reason: as directed) alogliptin 12.5 mg Tablet 12.5 mg PO DAILY docusate sodium 100 mg Capsule 100 mg PO BID Rx Instructions: take when using iron ascorbic acid (vitamin C) 500 mg Tablet 500 mg PO DAILY Discharge Orders: Discharge Order (Routine); Ordered 05/12/23 Ordered By: Spike Craft Admission Data Admit Date/Time: 04/28/23 20:02 Attending Provider: Bibi Gandara Admit Provider: Donal Santo Primary Care Provider: PCP,NO Other Providers: [facility]; Jono Garcia; Mabel Silverio. Other Interventions: Discharge Summary Assessment (RN) Last Done: 05/12/23 09:55 Supervising Physician Co-Signing Physician Notes Attending Physician Supervision Note: I independently interviewed and examined the patient and verified the miller history and physical, reviewed labs and image studies and agree with findings and care plan noted above. easily distracted. not able to recall recent events. Delirium, likely secondary to dementia/ h/o thalamic stroke 2019 - Mentation at baseline on discharge. Hasn't needed zyprexa in days. d/jorge to locked dementia unit. DMII, A1c 10.7. Transitioned to home regimen in am. A1c high likely from non-adherence d/t cognitive dysfunction. Chronic flank pain of uncertain etiology - pain control APAP To consider goals of care discussion Resident Activity Tracking Resident Involvement: Resident Care Provided Care Provided: Adult Hospital Medicine
[2023-05-12] MEDS: LANTUS PER UNIT CHARGE SC SCH (08:24)
[2023-05-12] MEDS ORDERED: EMPAGLIFLOZIN 25 MG TAB PO SCH (09:00)
== END 2023-05-12 11:51 | disposition home or self-care (01) | DRG 638 ==
LOC: ED 16:41 → 4W 20:02 → SUATTDRO 20:02 → 4W 21:30 → 3W 05-03 09:27